=== PATIENT | female | born 1995 | race Caucasian/White ===

== ENCOUNTER → 2022-08-25 13:25 | Outpatient (BNVA) | payer OTHER, SELFPAY | PROVIDERS: PCP Nurse Practitioner Family; Visit Provider Nurse Practitioner Family ==

== ENCOUNTER 2022-10-04 16:15 | Outpatient (REF) | payer OTHER, SELFPAY ==
--- NOTE | ~2022-10-04 | MR_ITS ---
EXAMINATION: MR BRAIN WITHOUT AND WITH CONTRAST CLINICAL INFORMATION: Headache COMPARISON: None TECHNIQUE: Multiplanar multisequence MR imaging of the brain was obtained without and following the administration of 6 mL Gadavist intravenous contrast. FINDINGS: There is no acute infarct on diffusion-weighted imaging. There is no intracranial hemorrhage on iron-sensitive imaging. No extra-axial collection or mass effect/herniation. Normal parenchymal signal characteristics. No hydrocephalus. The ventricles are normal in morphology and size. No abnormal parenchymal or extra-axial enhancement. The major flow voids at the skull base are preserved. The midline structures are normal. The cerebellar tonsils are normally positioned. The craniocervical junction is normal. Marrow signal is within normal limits. The visualized soft tissues are without significant abnormality. No signal abnormality within the paranasal sinuses or within the mastoid air cells. MR/MR head/brain wo/w con IMPRESSION: Unremarkable contrast enhanced MRI of the brain.
== END 2022-10-04 16:16 | disposition home or self-care (01) ==
LOC: HO.MRI 16:15
PROVIDERS: PCP Nurse Practitioner Family; Visit Provider Nurse Practitioner Family
DX: R51.9 Headache, unspecified (principal); Z86.19 Personal history of other infectious and parasitic diseases
CPT/HCPCS: 70553; A9585

== ENCOUNTER 2022-11-12 07:52 | Outpatient (AMB) | payer OTHER, SELFPAY ==
[2022-11-12 07:58] VITALS: BP 126/86; PULSE 72; O2SAT 99; BMI 21.5
--- NOTE | 2022-11-12 07:58 | A.OFFVIS_ITS ---
Intake Vital Signs 11/12/22 07:58 Height 5 ft 7 in Weight 137 lb 8 oz BMI 21.5 BP 126/86 Blood Pressure Location Lt brachial Position Sitting Pulse 72 Pulse Source Pulse Oximeter Pulse Oximetry (%) 99 Oxygen Delivery Method Room Air Intake Visit Reasons: BOTOX-confirmed Intake Note: Pt presents in office for Botox Application Integration Architect Required: No Allergies amoxicillin Allergy (Unknown, Verified 11/12/22 08:00) Unknown Penicillins Allergy (Unknown, Verified 11/12/22 08:00) Unknown sulfamethoxazole [From Bactrim] Allergy (Unknown, Verified 11/12/22 08:00) Hives trimethoprim [From Bactrim] Allergy (Unknown, Verified 11/12/22 08:00) Hives Medication List - Last Reconciled 11/12/22 by Marisol Solares MD cetirizine (Zyrtec) 10 mg PO DAILY PRN cholecalciferol (vitamin D3) 125 mcg PO DAILY clonidine HCl 0.2 mg PO DAILY dexmethylphenidate 10 mg PO famotidine 40 mg PO BID PRN lisdexamfetamine (Vyvanse) 30 mg PO DAILY magnesium tabs PO DAILY naltrexone mg PO DAILY onabotulinumtoxinA (Botox) 200 units IM ONCE 12 weeks propranolol 10 mg PO DAILY riboflavin (vitamin B2) 400 mg (4 x 100 mg) PO DAILY 30 days spironolactone 100 mg PO QAM [spore basedv probiotic PO DAILY] sumatriptan succinate 50 - 100 mg orally at onset of headache, may repeat in 2 hrs PRN; max 2 tabs per day or 4 tabs/week (may take with Ibuprofen) 30 days tretinoin 0.05% 1 appl topical BEDTIME [Tumeric curcumin 2,000 mg PO DAILY] HPI HPI Comments History of Present Illness Details ? 27y/o female comes for treatment of migraines with botox. ??? Most frequent reported adverse reactions following injection of botox for chronic migraine include neck pain (9%), headache(5%), eyelid ptosis(4%), migraine(4%), muscular weakness(4%), musculuskeletal stiffness(4%), bronchitis(3%), injection site pain (3%), musculoskeletal pain(3%), myalgia(3%), facial paresis(2%), HTN(2%) and muscle spasms(2%) were discussed in detail. ??? Botulinum toxin typeA 200units Lot no [id number] expiration Apr 2025 was diluted with 4 cc of normal saline . ??? Muscles injected- ??? Frontalis 4 sites ??? Masseter- 8 sites zygomaticus - 4 sites ??? Mangle Roll Operator- 2 sites ??? Temporalis- 8 sites ? Trapezius- 6 sites- 10 units each ??? 5 units each ??? Total use- 190units ??? Discarded-10units [facility] Medical History IBS (irritable bowel syndrome) GERD (gastroesophageal reflux disease) Positive ZHEN (antinuclear antibody) ADHD (attention deficit hyperactivity disorder) Surgical History Hx of appendectomy Family History Father Hypertension Mother Hypertension Cornelius's thyroiditis Maternal Grandmother Migraines Social History Alcohol intake: current Alcohol intake frequency: a few times a month Patient Tobacco Use Status: Never used Tobacco Substance Use Type: Marijuana Physical Exam Vital Signs: Last Vital Signs Pulse 72 11/12/22 07:58 BP 126/86 11/12/22 07:58 Pulse Ox 99 11/12/22 07:58 Oxygen Delivery Method Room Air 11/12/22 07:58 BMI result Body Mass Index 21.5 Const Orientation/consciousness: patient oriented x3 HEENT Other: Mild diffuse palpable facial and scalp tenderness. Mild lina TMJ misalignment on open/close Head: Yes normocephalic Resp Effort & Inspection: normal respiratory effort and able to speak in complete sentences Back/Spine/Pelvis Other: Bilateral posterior cervical tightness and tenderness Cervical ROM: full Left Spurling: normal Right Spurling: normal. Neuro General: patient oriented x3 Cranial nerves: Yes CN's II-XII intact bilaterally Cognition (Neuro): normal cognition Gait exam (Neuro): Normal gait present Motor exam (neuro): 5/5 motor strength present throughout Deep tendon reflexes (DTR's): Right triceps reflex intensity grade: 2+, Left triceps reflex intensity grade: 2+, Rt Biceps (C5, C6): 2+, Left biceps reflex intensity grade: 2+, Right brachioradialis reflex intensity grade: 2+, Left brachioradialis reflex intensity grade: 2+, Right patellar reflex intensity grade: 2+ and Left patellar reflex intensity grade: 2+ Coordination: [id number] test normal, tandem gait normal and Romberg test negative Pupils: Normal pupillary reactivity/response: bilateral Psych Appearance: grossly normal Mental Status: mental status grossly normal Speech and movement: Normal speech and movement present Affect: normal affect Attitude: cooperative Thought process: Normal thought process present Office Procedures Botulinum toxin Injection 12216 - Migraine Procedure code (CPT) selection complete Office Meds onabotulinumtoxinA 200 unit solution for injection Performing Provider: Marisol Solares MD Performing Location: [facility] [place] [facility] Administered by: Marisol Solares MD on 11/12/22 09:00 Dose Route Admin Location Dispensed Lot Number Expiration Date [facility] Workforce Development Program Director 190 unit subcut 200 units [id number] 04/07/25 9756-0029-38 ALLERGAN/BOTOX Comments: see HPI Assessment & Plan Assessment & Plan (1) TMJ (temporomandibular joint disorder): Code(s): M26.609 - Unspecified temporomandibular joint disorder, unspecified side (2) Chronic migraine without aura: Code(s): G43.709 - Chronic migraine without aura, not intractable, without status migrainosus Plan Patient tolerated the procedure well she will call with any side effects Orders: Orders AMB Botulinum toxin Injection - Patient Supplied Today G43.709 - Chronic migraine without aura, not intractable, without status migrainosus, M26.609 - Unspecified temporomandibular joint disorder, unspecified side Medications: Changed From propranolol Take in am and afternoon. 10 mg PO BID 30 days 60 tabs 3RF To propranolol 10 mg PO DAILY Coding Level of Care Code Est Pt Level 1 (65682) Diagnoses TMJ (temporomandibular joint disorder) M26.609 Chronic migraine without aura G43.709 CPT Codes Botox Injection - Botox 3: 25419 - Migraine ([id number])
== END 2022-11-12 08:25 | disposition home or self-care (01) ==
PROVIDERS: PCP Nurse Practitioner Family; Visit Provider Psychiatry & Neurology Neurology
DX: G43.709 Chronic migraine without aura, not intractable, without status migrainosus (principal)
CPT/HCPCS: 64615

== ENCOUNTER → 2022-11-12 07:52 | Outpatient (BNVA) | payer OTHER, SELFPAY | PROVIDERS: PCP Nurse Practitioner Family; Visit Provider Psychiatry & Neurology Neurology | DX: G43.709 Chronic migraine without aura, not intractable, without status migrainosus (principal); M26.609 Unspecified temporomandibular joint disorder, unspecified side | CPT/HCPCS: 64615; 99211; J0585 ==

== ENCOUNTER 2022-12-08 08:00 | Outpatient (AMB) | payer OTHER, SELFPAY ==
--- NOTE | 2022-12-08 08:01 | MHC.OFFVIS ---
Intake Vital Signs 12/08/22 08:05 Height 5 ft 7 in Weight 134 lb 8 oz BMI 21.1 BP 100/74 Blood Pressure Location Rt brachial Position Sitting Pulse 71 Pulse Source Pulse Oximeter Pulse Oximetry (%) 97 Oxygen Delivery Method Room Air Intake Visit Reasons: 3m follow up Persistent headaches-Confirmed Intake Note: Patient presents for 3 month follow up. patient states I want to say they got better for a little bit but they're flaring up saray been taking propranolol 2 times a day it was helping it could also be stress. . Allergies amoxicillin Allergy (Unknown, Verified 12/08/22 08:07) Unknown Penicillins Allergy (Unknown, Verified 12/08/22 08:07) Unknown sulfamethoxazole [From Bactrim] Allergy (Unknown, Verified 12/08/22 08:07) Hives trimethoprim [From Bactrim] Allergy (Unknown, Verified 12/08/22 08:07) Hives Medication List - Last Reconciled 12/08/22 by SOFIA Sandhu cetirizine (Zyrtec) 10 mg PO DAILY PRN cholecalciferol (vitamin D3) 125 mcg PO DAILY clonidine HCl 0.2 mg PO DAILY dexmethylphenidate 10 mg PO famotidine 40 mg PO BID PRN lisdexamfetamine (Vyvanse) 30 mg PO DAILY magnesium tabs PO DAILY naltrexone mg PO DAILY onabotulinumtoxinA (Botox) 200 units IM ONCE 12 weeks propranolol 10 mg PO DAILY riboflavin (vitamin B2) 400 mg (4 x 100 mg) PO DAILY 30 days spironolactone 100 mg PO QAM [spore basedv probiotic PO DAILY] tretinoin 0.05% 1 appl topical BEDTIME [Tumeric curcumin 2,000 mg PO DAILY] HPI HPI Comments History of Present Illness Details 27-yr-old female presents for f/u visit. Pt denies any significant interval medical changes. Her migraines were better for sometime, but does now seem to a bit more increased. 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 During the work week, she has some sort of headache every day. Sometimes can be mild and responds to OTC Tylenol/NSAID. She does find the Propanolol is helpful, but can feel like it makes her a bit tired and cognitively slower. She had her 1st Botox inj approx [address] hall. Tolerated well. Has not noticed a significant decrease in her cervical tension yet- but understands this can take several weeks and a fe treatment sessions to see full effect. She has not taken Sumatriptan yet- is anxious about the risk for s/e- especially the risk for paresthesias. [facility] Medical History IBS (irritable bowel syndrome) GERD (gastroesophageal reflux disease) Positive ZHEN (antinuclear antibody) ADHD (attention deficit hyperactivity disorder) Surgical History Hx of appendectomy Family History Father Hypertension Mother Hypertension Cornelius's thyroiditis Maternal Grandmother Migraines Social History Alcohol intake: current Alcohol intake frequency: a few times a month Patient Tobacco Use Status: Never used Tobacco Substance Use Type: Marijuana Review of Systems Const All systems reviewed & are unremarkable except as noted in HPI and below Physical Exam Vital Signs: Last Vital Signs Pulse 71 12/08/22 08:05 BP 100/74 12/08/22 08:05 Pulse Ox 97 12/08/22 08:05 Oxygen Delivery Method Room Air 12/08/22 08:05 BMI result Body Mass Index 21.1 Const General: cooperative and no acute distress Orientation/consciousness: patient oriented x3 HEENT Head: Yes normocephalic Resp Effort & Inspection: normal respiratory effort and able to speak in complete sentences Neuro Other: Posterior cervical tightness. General: patient oriented x3, gait normal and CN's II-XI intact bilaterally Cognition (Neuro): normal cognition Motor exam (neuro): 5/5 motor strength present throughout Psych Appearance: grossly normal Mental Status: mental status grossly normal Speech and movement: Normal speech and movement present Affect: normal affect Attitude: cooperative Thought process: Normal thought process present Thought content: Normal thought content present Insight: Good insight present (Psych) Judgement: Good judgement present (Psych) Assessment & Plan Assessment & Plan (1) Chronic migraine without aura: Code(s): G43.709 - Chronic migraine without aura, not intractable, without status migrainosus (2) TMJ (temporomandibular joint disorder): Code(s): M26.609 - Unspecified temporomandibular joint disorder, unspecified side Plan Reviewed brain MRI w/wo- normal. ? For overall headache management: Continue to optimize good self-care, including but not limited to maintaining a healthy diet, adequate fluid intake, adequate sleep, and engaging in regular physical activity. Track headaches. For acute headache treatment: May use OTC Tylenol, Ibuprofen, or Naproxen prn. Hold Sumatriptan 100mg tab- reviewed s/e profile, however pt is wary to try at this time. Previous acute migraine medication trials: None Acute migraine medication contraindications: None at this time ? For chronic migraine prevention medication: Continue Riboflavin 400mg qam Continue OTC Magnesium 400-500mg qhs Adjust Propranolol from 10mg IR bid 60mg ER qhs. Continue Botox inj q 3 months- may helpc ervical tightness and TMJ s/s as well. Previous migraine prevention medication trials: Nortriptyline not tolerated. Botox for lina TMJ- was helpful. Migraine prevention medication contraindications: None at this time. ? Information also given on non-pharmacological interventions, such as Nerivio neuromodulation devices. ? 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 Medications: New propranolol ER 60 mg PO BEDTIME 30 days 30 caps 3RF Coding Level of Care Code Est Pt Level 4 (62291) Diagnoses Chronic migraine without aura G43.709 TMJ (temporomandibular joint disorder) M26.609
[2022-12-08 08:05] VITALS: BP 100/74; PULSE 71; O2SAT 97; BMI 21.1
== END 2022-12-08 08:48 | disposition home or self-care (01) ==
PROVIDERS: PCP Nurse Practitioner Family; Visit Provider Nurse Practitioner Family
DX: G43.709 Chronic migraine without aura, not intractable, without status migrainosus (principal); M26.609 Unspecified temporomandibular joint disorder, unspecified side
CPT/HCPCS: 99214

== ENCOUNTER → 2022-12-08 08:00 | Outpatient (BNVA) | payer OTHER, SELFPAY | PROVIDERS: PCP Nurse Practitioner Family; Visit Provider Nurse Practitioner Family ==

== ENCOUNTER 2023-02-22 08:13 | Outpatient (AMB) | payer OTHER, SELFPAY ==
[2023-02-22 08:20] VITALS: BP 118/70; PULSE 71; RESP 16; O2SAT 98; BMI 21.2
--- NOTE | 2023-02-22 08:20 | MHC.OFFVIS ---
Intake Vital Signs 02/22/23 08:20 Height 5 ft 7 in Weight 135 lb 2 oz BMI 21.2 BP 118/70 Blood Pressure Location Rt brachial Position Sitting Respiration 16 Pulse 71 Pulse Source Pulse Oximeter Pulse Oximetry (%) 98 Oxygen Delivery Method Room Air Intake Visit Reasons: Botox - Confirmed Intake Note: Pt presents to the office for her Botox injections. Security And Compliance Analyst Required: No Allergies amoxicillin Allergy (Unknown, Verified 02/22/23 08:20) Unknown Penicillins Allergy (Unknown, Verified 02/22/23 08:20) Unknown sulfamethoxazole [From Bactrim] Allergy (Unknown, Verified 02/22/23 08:20) Hives trimethoprim [From Bactrim] Allergy (Unknown, Verified 02/22/23 08:20) Hives Medication List - Last Reconciled 02/22/23 by Marisol Solares MD cetirizine (Zyrtec) 10 mg PO DAILY PRN cholecalciferol (vitamin D3) 125 mcg PO DAILY clonidine HCl 0.2 mg PO DAILY dexmethylphenidate 10 mg PO famotidine 40 mg PO BID PRN lisdexamfetamine (Vyvanse) 30 mg PO DAILY magnesium tabs PO DAILY naltrexone mg PO DAILY onabotulinumtoxinA (Botox) 200 units IM ONCE 12 weeks propranolol 10 mg PO BID 30 days riboflavin (vitamin B2) 400 mg (4 x 100 mg) PO DAILY 30 days spironolactone 100 mg PO QAM [spore basedv probiotic PO DAILY] tretinoin 0.05% 1 appl topical BEDTIME [Tumeric curcumin 2,000 mg PO DAILY] HPI HPI Comments History of Present Illness Details ? 27y/o female comes for treatment of migraines with botox. How many migraine days prior to botox- >20 migraine days /month How long do the migraines last- 12-24 hrs Intensity of aimhnabp-1-68/10 ER visits related to migraine- none Effectiveness of botox from last two treatment(s)- this is her second treatment How many migraine days since receiving treatment- 15 migraine days Change? in intensity of migraine?- decreased Change in frequency of migraine?- decreased Change in use of acute medication for migraine?-decreased Change in quality of life?- better ER visits related to migraine?- none Have at least three months elapsed since last treatment (Last botox date - frequency of injections)- 11/2022 ??? Most frequent reported adverse reactions following injection of botox for chronic migraine include neck pain (9%), headache(5%), eyelid ptosis(4%), migraine(4%), muscular weakness(4%), musculuskeletal stiffness(4%), bronchitis(3%), injection site pain (3%), musculoskeletal pain(3%), myalgia(3%), facial paresis(2%), HTN(2%) and muscle spasms(2%) were discussed in detail. ??? Botulinum toxin typeA 200units Lot no C [id number] expiration May 2025 was diluted with 4 cc of normal saline . ??? Muscles injected- ??? Frontalis 4 sites ??? Masseter- 8 sites Splenius capitus- 4 sites ??? Loan Approver- 2 sites ??? Temporalis- 8 sites ? Trapezius- 6 sites- 10 units each ??? 5 units each ??? Total use- 190units ??? Discarded-10units [facility] Medical History IBS (irritable bowel syndrome) GERD (gastroesophageal reflux disease) Positive ZHEN (antinuclear antibody) ADHD (attention deficit hyperactivity disorder) Surgical History Hx of appendectomy Family History Father Hypertension Mother Hypertension Cornelius's thyroiditis Maternal Grandmother Migraines Social History Alcohol intake: current Alcohol intake frequency: a few times a month Patient Tobacco Use Status: Never used Tobacco Substance Use Type: Marijuana Physical Exam Vital Signs: Last Vital Signs Pulse 71 02/22/23 08:20 Resp 16 02/22/23 08:20 BP 118/70 02/22/23 08:20 Pulse Ox 98 02/22/23 08:20 Oxygen Delivery Method Room Air 02/22/23 08:20 BMI result Body Mass Index 21.2 Const General: cooperative and no acute distress Orientation/consciousness: patient oriented x3 HEENT Head: Yes normocephalic Resp Effort & Inspection: normal respiratory effort and able to speak in complete sentences Neuro Other: Posterior cervical tightness. General: patient oriented x3, gait normal and CN's II-XI intact bilaterally Cognition (Neuro): normal cognition Motor exam (neuro): 5/5 motor strength present throughout Psych Appearance: grossly normal Mental Status: mental status grossly normal Speech and movement: Normal speech and movement present Affect: normal affect Attitude: cooperative Thought process: Normal thought process present Thought content: Normal thought content present Insight: Good insight present (Psych) Judgement: Good judgement present (Psych) Office Procedures Botulinum toxin Injection 23781 - Migraine Procedure code (CPT) selection complete Office Meds onabotulinumtoxinA 200 unit solution for injection Performing Provider: Marisol Solares MD Performing Location: [facility] Administered by: Marisol Solares MD on 02/22/23 09:44 Dose Route Admin Location Dispensed Lot Number Expiration Date [facility] Accountant Helper 190 unit subcut 200 units [id number] 05/05/25 0218-9912-20 ALLERGAN/BOTOX Comments: see hpi Assessment & Plan Assessment & Plan (1) TMJ (temporomandibular joint disorder): Code(s): M26.609 - Unspecified temporomandibular joint disorder, unspecified side (2) Chronic migraine without aura: Code(s): G43.709 - Chronic migraine without aura, not intractable, without status migrainosus Plan Patient tolerated the procedure well she will call with any side effects Orders: Orders AMB Botulinum toxin Injection - Patient Supplied Today G43.709 - Chronic migraine without aura, not intractable, without status migrainosus Coding Level of Care Code Est Pt Level 1 (06276) Diagnoses TMJ (temporomandibular joint disorder) M26.609 Chronic migraine without aura G43.709 CPT Codes Botox Injection - Botox 3: 55111 - Migraine ([id number])
== END 2023-02-22 08:57 | disposition home or self-care (01) ==
PROVIDERS: PCP Nurse Practitioner Family; Visit Provider Psychiatry & Neurology Neurology
DX: G43.709 Chronic migraine without aura, not intractable, without status migrainosus (principal)
CPT/HCPCS: 64615

== ENCOUNTER → 2023-02-22 08:13 | Outpatient (BNVA) | payer SELFPAY | PROVIDERS: PCP Nurse Practitioner Family; Visit Provider Psychiatry & Neurology Neurology | DX: G43.709 Chronic migraine without aura, not intractable, without status migrainosus (principal); M26.609 Unspecified temporomandibular joint disorder, unspecified side | CPT/HCPCS: 64615; 99211; J0585 ==

== ENCOUNTER 2023-04-04 08:00 | Outpatient (AMB) | payer OTHER, SELFPAY ==
--- NOTE | 2023-04-04 08:08 | MHC.OFFVIS ---
Intake Vital Signs 04/04/23 08:09 Height 5 ft 7 in Weight 135 lb BMI 21.1 Intake Visit Reasons: 3 mnts f/u for headaches-Confirmed Intake Note: Patient presents for 3 month follow up headaches. it's so so depending on the week Allergies amoxicillin Allergy (Unknown, Verified 04/04/23 08:12) Unknown Penicillins Allergy (Unknown, Verified 04/04/23 08:12) Unknown sulfamethoxazole [From Bactrim] Allergy (Unknown, Verified 04/04/23 08:12) Hives trimethoprim [From Bactrim] Allergy (Unknown, Verified 04/04/23 08:12) Hives Medication List - Last Reconciled 04/04/23 by SOFIA Sandhu cetirizine (Zyrtec) 10 mg PO DAILY PRN cholecalciferol (vitamin D3) 125 mcg PO DAILY clonidine HCl 0.2 mg PO DAILY dexmethylphenidate 10 mg PO famotidine 40 mg PO BID PRN lisdexamfetamine (Vyvanse) 30 mg PO DAILY magnesium tabs PO DAILY methylphenidate HCl ER (Concerta) 18 mg PO DAILY naltrexone mg PO DAILY onabotulinumtoxinA (Botox) 200 units IM ONCE 12 weeks propranolol 10 mg PO BID 30 days riboflavin (vitamin B2) 400 mg (4 x 100 mg) PO DAILY 30 days spironolactone 100 mg PO QAM [spore basedv probiotic PO DAILY] tretinoin 0.05% 1 appl topical BEDTIME [Tumeric curcumin 2,000 mg PO DAILY] HPI HPI Comments History of Present Illness Details 28-yr-old female presents for f/u visit of migraine. Pt denies any significant interval medical changes. However, she does have an upcoming infectious disease consult at [facility]. Also notes that her hands and feet her old school. Incident the wound may occasionally become white, but she has never noticed blue color change. States she has chronic elevated ZHEN, but Rheumatology did not feel this was significant. Her generic Vyvanse 50mg was switched to Concerta 34 mg q.a.m., patient is not sure that this is as effective as Vyvanse. Her PCP is managing this. Patient reports her migraine burden has decreased since starting Botox. She no longer has a daily headache, and the headaches are less severe and less debilitating than before. Using Propranolol 10mg qhs. Uses Advil liquigel 600mg prn. May use Propranolol 10mg prn- which helps some. Has not tried Sumatriptan- anxious about risk for side effects. Baseline migraine without aura headache characteristics: Severe, Often throbbing Holocranial, lina retroorbital, temporal, moves down into her neck and shoulders a/w Photophobia, osmophobia, at times allodynia along frontal hairline, nausea- but not sure if r/t headache as often nauseous, brain fog, irritability. Current number of typical migraine days per month: Most days, no longer daily. Average painfulness of these migraines: Not as severe. Current number of non-migraine headache days per month: n/a Average painfulness of these headaches: n/a Previous number of migraine days per month prior to starting current preventive tx: daily PFS Medical History (Updated 04/04/23 @ 12:55 by SOFIA Sandhu) IBS (irritable bowel syndrome) GERD (gastroesophageal reflux disease) Positive ZHEN (antinuclear antibody) ADHD (attention deficit hyperactivity disorder) Surgical History Hx of appendectomy Family History Father Hypertension Mother Hypertension Cornelius's thyroiditis Maternal Grandmother Migraines Social History Alcohol intake: current Alcohol intake frequency: a few times a month Patient Tobacco Use Status: Never used Tobacco Substance Use Type: Marijuana Physical Exam Vital Signs: BMI result Body Mass Index 21.1 Const General: cooperative and no acute distress Orientation/consciousness: patient oriented x3 Resp Effort & Inspection: normal respiratory effort and able to speak in complete sentences Neuro General: patient oriented x3 Cranial nerves: Yes CN's II-XII intact bilaterally Cognition (Neuro): normal cognition Psych Appearance: grossly normal Mental Status: mental status grossly normal Speech and movement: Normal speech and movement present Affect: normal affect Attitude: cooperative Assessment & Plan Assessment & Plan (1) Chronic migraine without aura: Code(s): G43.709 - Chronic migraine without aura, not intractable, without status migrainosus (2) Cold hands and feet: Code(s): R20.9 - Unspecified disturbances of skin sensation (3) Positive ZHEN (antinuclear antibody): Code(s): R76.8 - Other specified abnormal immunological findings in serum Plan For coldness in bilateral hands and feet: Will request notes from the arthritis treatment center. ? For overall headache management: Continue to optimize good self-care, including but not limited to maintaining a healthy diet, adequate fluid intake, adequate sleep, and engaging in regular physical activity. Track headaches. ? For acute headache treatment: May use OTC Tylenol, Ibuprofen, or Naproxen prn. Trial Sumatriptan 100mg tab. May continue propranolol 10 mg p.r.n. Previous acute migraine medication trials: None Acute migraine medication contraindications: None at this time Future consideration: gepant. ? For chronic migraine prevention medication: Continue Riboflavin 400mg qam Continue OTC Magnesium 400-500mg qhs Continue Propranolol 10mg IR q.h.s. Continue Botox inj q 3 months- may help cervical tightness and TMJ s/s as well. Previous migraine prevention medication trials: Nortriptyline not tolerated. Botox for lina TMJ- was helpful. Propranolol 60 mg ER-not tolerated.. Migraine prevention medication contraindications: None at this time. ? Information also given on non-pharmacological interventions, such as Nerivio neuromodulation devices. ? Pt to follow-up for Botox in Dec as scheduled and in 4-6 months w/ [employer] or sooner prn. Coding Level of Care Code Est Pt Level 4 (10652) Diagnoses Chronic migraine without aura G43.709 Cold hands and feet R20.9 Positive ZHEN (antinuclear antibody) R76.8
[2023-04-04 08:09] VITALS: BMI 21.1
== END 2023-04-04 08:58 | disposition home or self-care (01) ==
PROVIDERS: PCP Nurse Practitioner Family; Visit Provider Nurse Practitioner Family
DX: G43.709 Chronic migraine without aura, not intractable, without status migrainosus (principal); R20.9 Unspecified disturbances of skin sensation; R76.8 Other specified abnormal immunological findings in serum
CPT/HCPCS: 99214

== ENCOUNTER → 2023-04-04 08:00 | Outpatient (BNVA) | payer OTHER, SELFPAY | PROVIDERS: PCP Nurse Practitioner Family; Visit Provider Nurse Practitioner Family ==

== ENCOUNTER 2023-06-03 11:00 | Outpatient (AMB) | payer OTHER, SELFPAY ==
--- NOTE | 2023-06-03 11:01 | A.OFFVIS_ITS ---
Intake Vital Signs 06/03/23 11:02 Height 5 ft 7 in Weight 132 lb BMI 20.7 BP 122/70 Blood Pressure Location Rt brachial Position Sitting Respiration 16 Pulse 76 Pulse Source Palpation Intake Visit Reasons: Botox-LVM Intake Note: Pt presents to the office for Botox injections. Fitness And Wellness Director Required: No Allergies amoxicillin Allergy (Unknown, Verified 06/03/23 11:01) Unknown Penicillins Allergy (Unknown, Verified 06/03/23 11:01) Unknown sulfamethoxazole [From Bactrim] Allergy (Unknown, Verified 06/03/23 11:01) Hives trimethoprim [From Bactrim] Allergy (Unknown, Verified 06/03/23 11:01) Hives Medication List - Last Reconciled 06/03/23 by Marisol Solares MD cetirizine (Zyrtec) 10 mg PO DAILY PRN cholecalciferol (vitamin D3) 125 mcg PO DAILY clonidine HCl 0.2 mg PO DAILY dexmethylphenidate 10 mg PO famotidine 40 mg PO BID PRN lisdexamfetamine (Vyvanse) 30 mg PO DAILY magnesium tabs PO DAILY methylphenidate HCl ER (Concerta) 18 mg PO DAILY naltrexone mg PO DAILY onabotulinumtoxinA (Botox) 200 units IM ONCE 12 weeks propranolol 10 mg PO BID 30 days riboflavin (vitamin B2) 400 mg (4 x 100 mg) PO DAILY 30 days spironolactone 100 mg PO QAM [spore basedv probiotic PO DAILY] tretinoin 0.05% 1 appl topical BEDTIME [Tumeric curcumin 2,000 mg PO DAILY] HPI HPI Comments History of Present Illness Details ? 28y/o female comes for treatment of migraines with botox. How many migraine days prior to botox- >20 migraine days /month How long do the migraines last- 12-24 hrs Intensity of vsjdvuwp-3-52/10 ER visits related to migraine- none Effectiveness of botox from last two treatment(s)- this is her second treatment How many migraine days since receiving treatment- 15 migraine days Change? in intensity of migraine?- decreased Change in frequency of migraine?- decreased Change in use of acute medication for migraine?-decreased Change in quality of life?- better ER visits related to migraine?- none Have at least three months elapsed since last treatment (Last botox date - frequency of injections)- 11/2022 ??? Most frequent reported adverse reactions following injection of botox for chronic migraine include neck pain (9%), headache(5%), eyelid ptosis(4%), migraine(4%), muscular weakness(4%), musculuskeletal stiffness(4%), bronchitis(3%), injection site pain (3%), musculoskeletal pain(3%), myalgia(3%), facial paresis(2%), HTN(2%) and muscle spasms(2%) were discussed in detail. ??? Botulinum toxin typeA 200units Lot no C [id number] expiration August 2025 was diluted with 4 cc of normal saline . ??? Muscles injected- ??? Frontalis 4 sites ??? Masseter- 8 sites Splenius capitus- 4 sites ??? Cigarette And Filter Chief Inspector- 2 sites ??? Temporalis- 8 sites ? Trapezius- 6 sites- 10 units each ??? 5 units each ??? Total use- 190units ??? Discarded-10units [facility] Medical History IBS (irritable bowel syndrome) GERD (gastroesophageal reflux disease) Positive ZHEN (antinuclear antibody) ADHD (attention deficit hyperactivity disorder) Surgical History Hx of appendectomy Family History Father Hypertension Mother Hypertension Cornelius's thyroiditis Maternal Grandmother Migraines Social History Alcohol intake: current Alcohol intake frequency: a few times a month Patient Tobacco Use Status: Never used Tobacco Substance Use Type: Marijuana Physical Exam Vital Signs: Last Vital Signs Pulse 76 06/03/23 11:02 Resp 16 06/03/23 11:02 BP 122/70 06/03/23 11:02 BMI result Body Mass Index 20.7 Const General: cooperative and no acute distress Orientation/consciousness: patient oriented x3 HEENT Head: Yes normocephalic Resp Effort & Inspection: normal respiratory effort and able to speak in complete sentences Neuro Other: Posterior cervical tightness. General: patient oriented x3, gait normal and CN's II-XI intact bilaterally Cognition (Neuro): normal cognition Motor exam (neuro): 5/5 motor strength present throughout Psych Appearance: grossly normal Mental Status: mental status grossly normal Speech and movement: Normal speech and movement present Affect: normal affect Attitude: cooperative Thought process: Normal thought process present Thought content: Normal thought content present Insight: Good insight present (Psych) Judgement: Good judgement present (Psych) Office Procedures Botulinum toxin Injection 34633 - Migraine Procedure code (CPT) selection complete Office Meds onabotulinumtoxinA 200 unit solution for injection Performing Provider: Marisol Solares MD Performing Location[place] [facility] [place] [facility] Administered by: Marisol Solares MD on 06/03/23 12:10 Dose Route Admin Location Dispensed Lot Number Expiration Date [facility] [employer] 190 unit IM 200 units [id number] 08/05/25 6724-5385-94 ALLERGAN/BOTOX Comments: see HPI Assessment & Plan Assessment & Plan (1) TMJ (temporomandibular joint disorder): Code(s): M26.609 - Unspecified temporomandibular joint disorder, unspecified side (2) Chronic migraine without aura: Code(s): G43.709 - Chronic migraine without aura, not intractable, without status migrainosus Plan Patient tolerated the procedure well she will call with any side effects Orders: Orders AMB Botulinum toxin Injection - Patient Supplied Today G43.709 - Chronic migrai ne without aura, not intractable, without status migrainosus, M26.609 - Unspecified temporomandibular joint disorder, unspecified side Coding Level of Care Code Est Pt Level 1 (51857) Diagnoses TMJ (temporomandibular joint disorder) M26.609 Chronic migraine without aura G43.709 CPT Codes Botox Injection - Botox 3: 42470 - Migraine ([id number])
[2023-06-03 11:02] VITALS: BP 122/70; PULSE 76; RESP 16; BMI 20.7
== END 2023-06-03 11:49 | disposition home or self-care (01) ==
PROVIDERS: PCP Nurse Practitioner Family; Visit Provider Psychiatry & Neurology Neurology
DX: G43.709 Chronic migraine without aura, not intractable, without status migrainosus (principal)
CPT/HCPCS: 64615

== ENCOUNTER → 2023-06-03 11:00 | Outpatient (BNVA) | payer OTHER, SELFPAY | PROVIDERS: PCP Nurse Practitioner Family; Visit Provider Psychiatry & Neurology Neurology | DX: G43.709 Chronic migraine without aura, not intractable, without status migrainosus (principal); M26.609 Unspecified temporomandibular joint disorder, unspecified side | CPT/HCPCS: 64615; 99211; J0585 ==

== ENCOUNTER 2023-08-02 07:57 | Outpatient (AMB) | payer OTHER, SELFPAY ==
--- NOTE | 2023-08-02 08:12 | A.OFFVIS_ITS ---
Vital Signs 08/02/23 08:13 Height 5 ft 7 in Weight 140 lb BMI 21.9 BP 114/74 Blood Pressure Location Rt brachial Position Sitting Pulse 66 Pulse Source Pulse Oximeter Intake Visit Reasons: 4 mo f/u-CONF Intake Note: Patient presents for 4 month follow up. my headaches are on and off but generally has been the same. Allergies amoxicillin Allergy (Unknown, Verified 08/02/23 08:14) Unknown Penicillins Allergy (Unknown, Verified 08/02/23 08:14) Unknown sulfamethoxazole [From Bactrim] Allergy (Unknown, Verified 08/02/23 08:14) Hives trimethoprim [From Bactrim] Allergy (Unknown, Verified 08/02/23 08:14) Hives Medication List - Last Reconciled 08/02/23 by SOFIA Sandhu cetirizine (Zyrtec) 10 mg PO DAILY PRN cholecalciferol (vitamin D3) 125 mcg PO DAILY clonidine HCl 0.2 mg PO DAILY dexmethylphenidate 10 mg PO famotidine 40 mg PO BID PRN lisdexamfetamine (Vyvanse) 30 mg PO DAILY magnesium tabs PO DAILY methylphenidate HCl ER (Concerta) 18 mg PO DAILY naltrexone mg PO DAILY onabotulinumtoxinA (Botox) 200 units IM ONCE 12 weeks propranolol 10 mg PO BID 30 days riboflavin (vitamin B2) 400 mg (4 x 100 mg) PO DAILY 30 days spironolactone 100 mg PO QAM [spore basedv probiotic PO DAILY] tretinoin 0.05% 1 appl topical BEDTIME [Tumeric curcumin 2,000 mg PO DAILY] verapamil ER 100 mg PO BEDTIME 30 days HPI Comments Details: 28-yr-old female presents for f/u visit. Pt denies any significant interval medical changes. Pt had ID consult at [facility]- was advised to not re-treat the [place] Spotted Fever as they did not think the positive ABs were indicating active infection. She has continued to have joint pain, hypermobility, fatigue. Has had hypermobile joints since childhood- prone to joint issues/injuries. She was referred to [facility] for EDS eval- had a connective tissue panel- so far pt states so far results were normal. Had recent normal echocardiogram as part of EDs work-up. She has chronic positive ZHEN. Pt reports her migraine attacks are stable. She is still prone to her hands and feet becoming cold- better more recently- her new office is warmer than her previous offices have been. Uses propranolol 10mg qhs- may use an extra tab prn for acute attack, may help some w/ the anxiety r/t the migraine. May be a bit lightheaded at times. Does not tolerate liquid IV well, but does take water w/ salt and electrolytes- that she makes. This is helpful when she takes it. The Botox helps decrease the severity of the migraine and now the frequency as w ell. Using low dose Naltrexone- for joint pain. She recently stopped the Naltrexone- did not notice any effect on her migraine, but resumed on a different dosing regimen- and feels some improvement She continues to have a few migraine days per week. [facility] Medical History IBS (irritable bowel syndrome) GERD (gastroesophageal reflux disease) Positive ZHEN (antinuclear antibody) ADHD (attention deficit hyperactivity disorder) Surgical History Hx of appendectomy Family History Father Hypertension Mother Hypertension Cornelius's thyroiditis Maternal Grandmother Migraines Social History Alcohol intake: current Alcohol intake frequency: a few times a month Patient Tobacco Use Status: Never used Tobacco Substance Use Type: Marijuana Physical Exam Vital Signs: Last Vital Signs Pulse 66 08/02/23 08:13 BP 114/74 08/02/23 08:13 BMI result Body Mass Index 21.9 Const General: cooperative and no acute distress Orientation/consciousness: patient oriented x3 Resp Effort & Inspection: normal respiratory effort and able to speak in complete se ntences Neuro General: patient oriented x3 Cranial nerves: Yes CN's II-XII intact bilaterally Cognition (Neuro): normal cognition Psych Appearance: grossly normal Mental Status: mental status grossly normal Speech and movement: Normal speech and movement present Affect: normal affect Attitude: cooperative Assessment & Plan Assessment & Plan (1) Chronic migraine without aura: Code(s): G43.709 - Chronic migraine without aura, not intractable, without status migr ainosus Category: Medical (2) Cold hands and feet: Code(s): R20.9 - Unspecified disturbances of skin sensation Category: Medical Plan For coldness in bilateral hands and feet: Request notes from the arthritis treatment center- have not receievd. Pt will provide notes. ? For overall headache management: Continue to optimize good self-care, including but not limited to maintaining a healthy diet, adequate fluid intake, adequate sleep, and engaging in regular physical activity. Track headaches. ? For acute headache treatment: May use OTC Tylenol, Ibuprofen, or Naproxen prn. Trial Sumatriptan 100mg tab. Propranolol 10mg IR qd prn. May continue propranolol 10 mg p.r.n. Previous acute migraine medication trials: None Acute migraine medication contraindications: None at this time Future consideration: gepant. ? For chronic migraine prevention medication: Continue Riboflavin 400mg qam Continue OTC Magnesium 400-500mg qhs Continue Propranolol 10mg IR q.h.s. Try adding Veraapiml ER 100mg qhs- in hopes this lessens headaches and Raynaud s/s. Will check baseline EKG. Monitor for lightheadedness. If effective, consider weaning off scheduled Propranolol. Continue Botox inj q 3 months- as pt is having good clinical effect and helping cervical tightness and TMJ s/s as well. Previous migraine prevention medication trials: Nortriptyline not tolerated. Botox for lnia TMJ- was helpful. Propranolol 60 mg ER- not tolerated- caused excessive sleepiness. Migraine prevention medication contraindications: None at this time. ? ? Pt to follow-up for Botox as scheduled and in 4-6 months w/ [employer] or sooner prn. Orders: Orders ECG 12 lead EKG Today R00.2 - Palpitations Medications: New verapamil ER 100 mg PO BEDTIME 30 days 30 caps 6RF Coding Level of Care Code Est Pt Level 4 (93957) Diagnoses Chronic migraine without aura G43.709 Cold hands and feet R20.9
[2023-08-02 08:13] VITALS: BP 114/74; PULSE 66; BMI 21.9
== END 2023-08-02 09:05 | disposition home or self-care (01) ==
PROVIDERS: PCP Nurse Practitioner Family; Visit Provider Nurse Practitioner Family
DX: G43.709 Chronic migraine without aura, not intractable, without status migrainosus (principal); R20.9 Unspecified disturbances of skin sensation
CPT/HCPCS: 99214

== ENCOUNTER → 2023-08-02 07:57 | Outpatient (BNVA) | payer OTHER, SELFPAY | PROVIDERS: PCP Nurse Practitioner Family; Visit Provider Nurse Practitioner Family ==

== ENCOUNTER 2023-09-13 08:03 | Outpatient (AMB) | payer OTHER, SELFPAY ==
[2023-09-13 08:08] VITALS: BP 122/62; PULSE 72; RESP 16; O2SAT 99; BMI 21.9
--- NOTE | 2023-09-13 08:08 | A.OFFVIS_ITS ---
Vital Signs 09/13/23 08:08 Height 5 ft 7 in Weight 140 lb BMI 21.9 BP 122/62 Blood Pressure Location Rt brachial Position Sitting Respiration 16 Pulse 72 Pulse Source Pulse Oximeter Pulse Oximetry (%) 99 Oxygen Delivery Method Room Air Intake Visit Reasons: Botox - Confirmed Intake Note: Pt presents to the office for Botox injections for migraines. 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 Required: No Allergies amoxicillin Allergy (Unknown, Verified 09/13/23 08:08) Unknown Penicillins Allergy (Unknown, Verified 09/13/23 08:08) Unknown sulfamethoxazole [From Bactrim] Allergy (Unknown, Verified 09/13/23 08:08) Hives trimethoprim [From Bactrim] Allergy (Unknown, Verified 09/13/23 08:08) Hives Medication List - Last Reconciled 09/13/23 by Marisol Solares MD cetirizine (Zyrtec) 10 mg PO DAILY PRN cholecalciferol (vitamin D3) 125 mcg PO DAILY clonidine HCl 0.2 mg PO DAILY dexmethylphenidate 10 mg PO famotidine 40 mg PO BID PRN lisdexamfetamine (Vyvanse) 30 mg PO DAILY magnesium tabs PO DAILY methylphenidate HCl ER (Concerta) 18 mg PO DAILY naltrexone mg PO DAILY onabotulinumtoxinA (Botox) 200 units IM ONCE 12 weeks propranolol 10 mg PO BID 30 days riboflavin (vitamin B2) 400 mg (4 x 100 mg) PO DAILY 30 days spironolactone 100 mg PO QAM [spore basedv probiotic PO DAILY] tretinoin 0.05% 1 appl topical BEDTIME [Tumeric curcumin 2,000 mg PO DAILY] verapamil ER 100 mg PO BEDTIME 30 days HPI Comments Details: ? 28y/o female comes for treatment of migraines with botox. How many migraine days prior to botox- >20 migraine days /month How long do the migraines last- 12-24 hrs Intensity of aluycsck-3-53/10 ER visits related to migraine- none Effectiveness of botox from last two treatment(s)- this is her second treatment How many migraine days since receiving treatment- 15 migraine days Change? in intensity of migraine?- decreased Change in frequency of migraine?- decreased Change in use of acute medication for migraine?-decreased Change in quality of life?- better ER visits related to migraine?- none Have at least three months elapsed since last treatment (Last botox date - frequency of injections)- 05/2023 ??? Most frequent reported adverse reactions following injection of botox for chronic migraine include neck pain (9%), headache(5%), eyelid ptosis(4%), migraine(4%), muscular weakness(4%), musculuskeletal stiffness(4%), bronchitis(3%), injection site pain (3%), musculoskeletal pain(3%), myalgia(3%), facial paresis(2%), HTN(2%) and muscle spasms(2%) were discussed in detail. ??? Botulinum toxin typeA 200units Lot no C [id number] expiration Feb 2026 was diluted with 4 cc of normal saline . ??? Muscles injected- ??? Frontalis 2 sites ??? Masseter- 8 sites Splenius capitus- 4 sites ? Temporalis- 8 sites ? Trapezius- 6 sites- 10 units each ? Total use- 190units ??? Discarded-10units COUNT INCLUDES THE [facility] Medical History IBS (irritable bowel syndrome) GERD (gastroesophageal reflux disease) Positive ZHEN (antinuclear antibody) ADHD (attention deficit hyperactivity disorder) Surgical History Hx of appendectomy Family History Father Hypertension Mother Hypertension Cornelius's thyroiditis Maternal Grandmother Migraines Social History Alcohol intake: current Alcohol intake frequency: a few times a month Patient Tobacco Use Status: Never used Tobacco Substance Use Type: Marijuana Physical Exam Vital Signs: Last Vital Signs Pulse 72 09/13/23 08:08 Resp 16 09/13/23 08:08 BP 122/62 09/13/23 08:08 Pulse Ox 99 09/13/23 08:08 Oxygen Delivery Method Room Air 09/13/23 08:08 BMI result Body Mass Index 21.9 Const General: cooperative and no acute distress Orientation/consciousness: patient oriented x3 Resp Effort & Inspection: normal respiratory effort and able to speak in complete sentences Neuro General: patient oriented x3 Cranial nerves: Yes CN's II-XII intact bilaterally Cognition (Neuro): normal cognition Psych Appearance: grossly normal Mental Status: mental status grossly normal Speech and movement: Normal speech and movement present Affect: normal affect Attitude: cooperative Office Procedures Botulinum toxin Injection 96161 - Migraine Procedure code (CPT) selection complete Office Meds onabotulinumtoxinA 200 unit solution for injection Performing Provider: Marisol Solares MD Performing Location: [facility] [place] [facility] Administered by: Marisol Solares MD on 09/13/23 08:53 Dose Route Admin Location Dispensed Lot Number Expiration Date [facility] [employer] 190 unit subcut 200 units [id number] 02/04/26 7141-6939-99 ALLERGAN/BOTOX Comments: see HPI Assessment & Plan Assessment & Plan (1) TMJ (temporomandibular joint disorder): Code(s): M26.609 - Unspecified temporomandibular joint disorder, unspecified side Category: Medical (2) Chronic migraine without aura: Code(s): G43.709 - Chronic migraine without aura, not intractable, without status migrainosus Category: Medical Plan Patient tolerated the procedure well she will call with any side effects Orders: Orders AMB Botulinum toxin Injection - Patient Supplied Today G43.709 - Chronic migraine without aura, not intractable, without status migrainosus Medications: New onabotulinumtoxinA 200 units subcut ONCE 1 ea 0RF migraine G43.709 - Chronic migraine without aura, not intractable, without status migrainosus Coding Level of Care Code Est Pt Level 1 (70830) Diagnoses TMJ (temporomandibular joint disorder) M26.609 Chronic migraine without aura G43.709 CPT Codes Botox Injection - Botox 3: 07457 - Migraine ([id number])
== END 2023-09-13 08:41 | disposition home or self-care (01) ==
PROVIDERS: PCP Nurse Practitioner Family; Visit Provider Psychiatry & Neurology Neurology
DX: G43.709 Chronic migraine without aura, not intractable, without status migrainosus (principal)
CPT/HCPCS: 64615

== ENCOUNTER → 2023-09-13 08:03 | Outpatient (BNVA) | payer OTHER, SELFPAY | PROVIDERS: PCP Nurse Practitioner Family; Visit Provider Psychiatry & Neurology Neurology | DX: G43.709 Chronic migraine without aura, not intractable, without status migrainosus (principal); M26.609 Unspecified temporomandibular joint disorder, unspecified side | CPT/HCPCS: 64615; 99211; J0585 ==

== ENCOUNTER 2023-12-15 07:31 | Outpatient (AMB) | payer OTHER, SELFPAY ==
--- NOTE | 2023-12-15 07:37 | MHC.OFFVIS ---
Vital Signs 12/15/23 07:38 Height 5 ft 7 in Weight 140 lb 2 oz BMI 21.9 BP 116/68 Blood Pressure Location Rt brachial Position Sitting Pulse 73 Pulse Source Pulse Oximeter Pulse Oximetry (%) 98 Oxygen Delivery Method Room Air Intake Visit Reasons: Botox Intake Note: Patient presents for migraine follow up. ( Botox ) Media Buyer Required: No Accompanied by: Self / Same As Patient Allergies amoxicillin Allergy (Unknown, Verified 12/15/23 07:46) Unknown Penicillins Allergy (Unknown, Verified 12/15/23 07:46) Unknown sulfamethoxazole [From Bactrim] Allergy (Unknown, Verified 12/15/23 07:46) Hives trimethoprim [From Bactrim] Allergy (Unknown, Verified 12/15/23 07:46) Hives Medication List - Last Reconciled 12/15/23 by Marisol Solares MD cetirizine (Zyrtec) 10 mg PO DAILY PRN cholecalciferol (vitamin D3) 125 mcg PO DAILY clonidine HCl 0.2 mg PO DAILY dexmethylphenidate 10 mg PO famotidine 40 mg PO BID PRN lisdexamfetamine (Vyvanse) 30 mg PO DAILY magnesium tabs PO DAILY methylphenidate HCl ER (Concerta) 18 mg PO DAILY naltrexone mg PO DAILY onabotulinumtoxinA (Botox) 200 units IM ONCE 12 weeks propranolol 10 mg PO BID 90 days riboflavin (vitamin B2) 400 mg (4 x 100 mg) PO DAILY 30 days spironolactone 100 mg PO QAM [spore basedv probiotic PO DAILY] tretinoin 0.05% 1 appl topical BEDTIME [Tumeric curcumin 2,000 mg PO DAILY] verapamil ER 100 mg PO BEDTIME 30 days HPI Comments Details: ? 28y/o female comes for treatment of migraines with botox. How many migraine days prior to botox- >20 migraine days /month How long do the migraines last- 12-24 hrs Intensity of lubmtgoy-2-72/10 ER visits related to migraine- none Effectiveness of botox from last two treatment(s)- this is her second treatment How many migraine days since receiving treatment- 15 migraine days Change? in intensity of migraine?- decreased Change in frequency of migraine?- decreased Change in use of acute medication for migraine?-decreased Change in quality of life?- better ER visits related to migraine?- none Have at least three months elapsed since last treatment (Last botox date - frequency of injections)- 3 months ??? Most frequent reported adverse reactions following injection of botox for chronic migraine include neck pain (9%), headache(5%), eyelid ptosis(4%), migraine(4%), muscular weakness(4%), musculuskeletal stiffness(4%), bronchitis(3%), injection site pain (3%), musculoskeletal pain(3%), myalgia(3%), facial paresis(2%), HTN(2%) and muscle spasms(2%) were discussed in detail. ??? Botulinum toxin typeA 200units Lot no [id number] expiration Apr 2026 was diluted with 4 cc of normal saline . ??? Muscles injected- ??? Frontalis 2 sites ??? Masseter- 8 sites Splenius capitus- 4 sites environmental conservation officer 2 sites ? Temporalis- 8 sites 5 units each ? Trapezius- 6 sites- 10 units each ? Total use- 200units ??? Discarded-0units PFSH Medical History IBS (irritable bowel syndrome) GERD (gastroesophageal reflux disease) Positive ZHEN (antinuclear antibody) ADHD (attention deficit hyperactivity disorder) Surgical History Hx of appendectomy Family History Father Hypertension Mother Hypertension Cornelius's thyroiditis Maternal Grandmother Migraines Social History Alcohol intake: current Alcohol intake frequency: a few times a month Patient Tobacco Use Status: Never used Tobacco Substance Use Type: Marijuana Physical Exam Vital Signs: Last Vital Signs Pulse 73 12/15/23 07:38 BP 116/68 12/15/23 07:38 Pulse Ox 98 12/15/23 07:38 Oxygen Delivery Method Room Air 12/15/23 07:38 BMI result Body Mass Index 21.9 Const General: cooperative and no acute distress Orientation/consciousness: patient oriented x3 Resp Effort & Inspection: normal respiratory effort and able to speak in complete sentences Neuro General: patient oriented x3 Cranial nerves: Yes CN's II-XII intact bilaterally Cognition (Neuro): normal cognition Psych Appearance: grossly normal Mental Status: mental status grossly normal Speech and movement: Normal speech and movement present Affect: normal affect Attitude: cooperative Office Procedures Botulinum toxin Injection 11704 - Migraine Procedure code (CPT) selection complete Office Meds onabotulinumtoxinA 200 unit solution for injection Performing Provider: Marisol Solares MD Performing Location: [facility] [place] [facility] Administered by: Marisol Solares MD on 12/15/23 09:45 Dose Route Admin Location Dispensed Lot Number Expiration Date [facility] 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 200 unit subcut 200 units [id number] 04/07/26 6633-0071-84 ALLERGAN/BOTOX Comments: see HPI Assessment & Plan Assessment & Plan (1) TMJ (temporomandibular joint disorder): Code(s): M26.609 - Unspecified temporomandibular joint disorder, unspecified side Category: Medical (2) Chronic migraine without aura: Code(s): G43.709 - Chronic migraine without aura, not intractable, without status migrainosus Category: Medical Qualifiers: Status migrainosus presence: without status migrainosus Intractability: intractable Qualified Code(s): G43.719 - Chronic migraine without aura, intractable, without status migrainosus Plan Patient tolerated the procedure well she will call with any side effects Orders: Orders AMB Botulinum toxin Injection - Patient Supplied Today G43.719 - Chronic migraine without aura, intractable, without status migrainosus Medications: New onabotulinumtoxinA 200 units subcut ONCE 1 ea 0RF migraine G43.719 - Chronic migraine without aura, intractable, without status migrainosus Coding Level of Care Code Est Pt Level 1 (14707) Diagnoses TMJ (temporomandibular joint disorder) M26.609 Intractable chronic migraine without aura and without status migrainosus G43.719 Status migrainosus presence: without status migrainosus Intractability: intractable CPT Codes Botox Injection - Botox 3: 77917 - Migraine ([id number])
[2023-12-15 07:38] VITALS: BP 116/68; PULSE 73; O2SAT 98; BMI 21.9
== END 2023-12-15 08:14 | disposition home or self-care (01) ==
PROVIDERS: PCP Nurse Practitioner Family; Visit Provider Psychiatry & Neurology Neurology
DX: G43.719 Chronic migraine without aura, intractable, without status migrainosus (principal)
CPT/HCPCS: 64615

== ENCOUNTER → 2023-12-15 07:31 | Outpatient (BNVA) | payer OTHER, SELFPAY | PROVIDERS: PCP Nurse Practitioner Family; Visit Provider Psychiatry & Neurology Neurology | DX: G43.719 Chronic migraine without aura, intractable, without status migrainosus (principal); M26.609 Unspecified temporomandibular joint disorder, unspecified side | CPT/HCPCS: 64615; 99211; J0585 ==

== ENCOUNTER 2024-02-23 08:03 | Outpatient (AMB) | payer OTHER, SELFPAY ==
[2024-02-23 08:05] VITALS: BMI 21.9
--- NOTE | 2024-02-23 08:05 | MHC.OFFVIS ---
Vital Signs 02/23/24 08:05 Height 5 ft 7 in Weight 140 lb BMI 21.9 Intake Visit Reasons: Follow Up Intake Note: Patient presents for follow up Allergies amoxicillin Allergy (Unknown, Verified 02/23/24 08:08) Unknown Penicillins Allergy (Unknown, Verified 02/23/24 08:08) Unknown sulfamethoxazole [From Bactrim] Allergy (Unknown, Verified 02/23/24 08:08) Hives trimethoprim [From Bactrim] Allergy (Unknown, Verified 02/23/24 08:08) Hives Medication List - Last Reconciled 02/23/24 by SOFIA Sandhu cetirizine (Zyrtec) 10 mg PO DAILY PRN cholecalciferol (vitamin D3) 125 mcg PO DAILY clonidine HCl 0.2 mg PO DAILY dexmethylphenidate 10 mg PO famotidine 40 mg PO BID PRN galcanezumab-gnlm (Emgality Pen) mg subcut lisdexamfetamine (Vyvanse) 30 mg PO DAILY magnesium tabs PO DAILY methylphenidate HCl ER (Concerta) 18 mg PO DAILY naltrexone mg PO DAILY onabotulinumtoxinA (Botox) 200 units IM ONCE 12 weeks propranolol 10 mg PO BID 90 days riboflavin (vitamin B2) 400 mg (4 x 100 mg) PO DAILY 30 days spironolactone 100 mg PO QAM [spore basedv probiotic PO DAILY] tretinoin 0.05% 1 appl topical BEDTIME [Tumeric curcumin 2,000 mg PO DAILY] verapamil ER 100 mg PO BEDTIME 30 days HPI Comments Details: 28-yr-old female presents for f/u visit of chronic migraine. Pt denies any significant interval medical changes. Pt had f/u w/ [facility]- was dx'd w/ hypermobile EDS. And raised concern for comorbid POTs. Her PCP office has referred her for tilt-table testing, however she has not received an appointment yet. Recent normal echocardiogram as part of EDs work-up. Has history of chronic positive ZHEN. Patient reports that although Botox was helpful, typically for the 1st 6 weeks after the injection. She he was continuing to have daily headache and severe disabling attacks. Pt reports her migraine attacks are better since her PCP started her on Emgality in Jan. She has taken loading dose and 1st maintenance dose. In the past month, she feels she has had a 40-50% reduction in her overall migraine symptom burden. She is now having less migraines attacks- now actually having crystal clear headache free days which she has not had prior to starting Emgality with Botox. Has also has had less migraine associated symptoms of nausea, neck pain, allodynia. She is finding that she is not needing to take her acute migraine tx as often. She does note that the Emgality is most effective for the 1st 3 weeks of the injection cycle, and then the migraine intensity slowly increases during the last week of the injection cycle. After the last few Botox injections, she has had some difficulty chewing for a few weeks and then wears off. But this still helps with the TMJ tightness/pain. She tried verapamil ER 100 mg, however she did not tolerate it, felt it caused disabling fatigue and did not help her hand symptoms much. However since, her hand and feet coldness has improved. Uses propranolol 10mg qhs- may use an extra tab prn for acute attack, may help some w/ the anxiety r/t the migraine, palpitations. She has not had as much of orthostatic lightheadedness as much since she started taking a salt/electrolyte supplement. Note she previously did not tolerate liquid IV. Using low dose Naltrexone- for joint pain. She previously tried to hold it, but she felt increased exhaustion so resumed it. She does continue to have neck tightness and discomfort. The Botox helps this as well but not completely. Trying to exercise, light weights, walking. She was advised to avoid heavy weightlifting due to hypermobile EDS diagnosis. Patient denies current or near future plans to become . [facility] Medical History IBS (irritable bowel syndrome) GERD (gastroesophageal reflux disease) Positive ZHEN (antinuclear antibody) ADHD (attention deficit hyperactivity disorder) Surgical History Hx of appendectomy Family History Father Hypertension Mother Hypertension Cornelius's thyroiditis Maternal Grandmother Migraines Social History Alcohol intake: current Alcohol intake frequency: a few times a month Patient Tobacco Use Status: Never used Tobacco Substance Use Type: Marijuana Physical Exam Vital Signs: BMI result Body Mass Index 21.9 Const General: cooperative and no acute distress Orientation/consciousness: patient oriented x3 Resp Effort & Inspection: normal respiratory effort and able to speak in complete sentences Neuro General: patient oriented x3 Cranial nerves: Yes CN's II-XII intact bilaterally Cognition (Neuro): normal cognition Psych Appearance: grossly normal Mental Status: mental status grossly normal Speech and movement: Normal speech and movement present Affect: normal affect Attitude: cooperative Assessment & Plan Assessment & Plan (1) Chronic migraine without aura: Code(s): G43.709 - Chronic migraine without aura, not intractable, without status migrainosus Category: Medical Qualifiers: Status migrainosus presence: without status migrainosus Intractability: intractable Qualified Code(s): G43.719 - Chronic migraine without aura, intractable, without status migrainosus (2) Cold hands and feet: Comment: Improved Code(s): R20.9 - Unspecified disturbances of skin sensation Category: Medical (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 ? For overall headache management: Continue to optimize good self-care, including but not limited to maintaining a healthy diet, adequate fluid intake, adequate sleep, and engaging in regular physical activity. Track headaches. For pots and hypermobile EDS: Tilt-table test per PCP Check heart rate while standing 10 minutes. Continue paste physical activity. We will refer to PT with expertise in EDS and migraine local to pt. ? For acute headache treatment: May use OTC Tylenol, Ibuprofen, or Naproxen prn. Trial Sumatriptan 100mg tab. Propranolol 10mg IR qd prn. Previous acute migraine medication trials: None Acute migraine medication contraindications: None at this time Future consideration: gepant. ? For chronic migraine prevention medication: Continue Riboflavin 400mg qam Continue OTC Magnesium 400-500mg qhs Continue Propranolol 10mg IR q.h.s. Patient has stopped Veraapiml ER 100mg qhs- not tolerated-caused fatigue. She may continue Emgality 120 mg subcu q.month, as patient has had a significant reduction in her migraine burden w/ decrease intensity of migraine, decreased severity of associated migraine symptoms, now has a few headache-free days per month- since taking Emgality combined with Botox. Continue Botox inj q 3 months- as pt is having good clinical effect and helping cervical tightness and TMJ s/s as well. Advise patient to discuss post Botox masseter weakness with Dr. Solares, she may benefit from a slight reduction in in each masseter Botox injection dose. Previous migraine prevention medication trials: Nortriptyline not tolerated. Botox for lina TMJ- was helpful. Propranolol 60 mg ER- not tolerated- caused excessive sleepiness. Veraapiml ER 100mg qhs- not tolerated-caused fatigue Migraine prevention medication contraindications: Aimovig due to possibility of Raynaud's. ? ? 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 Orders: Orders PT Evaluation and Treatment Today G43.719 - Chronic migraine without aura, intractable, without status migrainosus, M54.2 - Cervicalgia, Q79.62 - Hypermobile Izzy-Danlos syndrome Coding Level of Care Code Est Pt Level 4 (25938) Diagnoses Intractable chronic migraine without aura and without status migrainosus G43.719 Status migrainosus presence: without status migrainosus Intractability: intractable Cold hands and feet R20.9 Hypermobile Izzy-Danlos syndrome Q79.62 Orthostatic lightheadedness R42
== END 2024-02-23 09:10 | disposition home or self-care (01) ==
PROVIDERS: PCP Nurse Practitioner Family; Visit Provider Nurse Practitioner Family
DX: G43.719 Chronic migraine without aura, intractable, without status migrainosus (principal); R20.9 Unspecified disturbances of skin sensation; Q79.62 Hypermobile Ehlers-Danlos syndrome; R42 Dizziness and giddiness
CPT/HCPCS: 99214

== ENCOUNTER → 2024-02-23 08:03 | Outpatient (BNVA) | payer OTHER, SELFPAY | PROVIDERS: PCP Nurse Practitioner Family; Visit Provider Nurse Practitioner Family ==

== ENCOUNTER 2024-03-20 07:43 | Outpatient (AMB) | payer OTHER, SELFPAY ==
--- OUTSIDE RECORDS SUMMARY | 2024-03-20 07:44 | XMS_ITS ---
Author Name [facility] Organization Unknown Problems Problem Status Onset Date Problem Type Date of Resoluti on Source Chronic migraine without aura, intractable, without status migrainosus active EncounterDiagnosisAct [facility] Cervicalgia active EncounterDiagnosisAct [facility] Hypermobile Izzy-Danlos syndrome active EncounterDiagnosisAct [facility]
--- NOTE | 2024-03-20 07:46 | A.OFFVIS_ITS ---
Intake Visit Reasons: Botox Intake Note: Patient presents for botox injection Allergies amoxicillin Allergy (Unknown, Verified 02/23/24 08:08) Unknown Penicillins Allergy (Unknown, Verified 02/23/24 08:08) Unknown sulfamethoxazole [From Bactrim] Allergy (Unknown, Verified 02/23/24 08:08) Hives trimethoprim [From Bactrim] Allergy (Unknown, Verified 02/23/24 08:08) Hives Medication List - Last Reconciled 03/20/24 by Marisol Solares MD cetirizine (Zyrtec) 10 mg PO DAILY PRN cholecalciferol (vitamin D3) 125 mcg PO DAILY clonidine HCl 0.2 mg PO DAILY dexmethylphenidate 10 mg PO famotidine 40 mg PO BID PRN galcanezumab-gnlm (Emgality Pen) mg subcut lisdexamfetamine (Vyvanse) 30 mg PO DAILY magnesium tabs PO DAILY methylphenidate HCl ER (Concerta) 18 mg PO DAILY naltrexone mg PO DAILY onabotulinumtoxinA (Botox) 200 units IM ONCE 12 weeks propranolol 10 mg PO BID 90 days riboflavin (vitamin B2) 400 mg (4 x 100 mg) PO DAILY 30 days spironolactone 100 mg PO QAM [spore basedv probiotic PO DAILY] tretinoin 0.05% 1 appl topical BEDTIME [Tumeric curcumin 2,000 mg PO DAILY] verapamil ER 100 mg PO BEDTIME 30 days HPI Comments Details: ? 28y/o female comes for treatment of migraines with botox. How many migraine days prior to botox- >20 migraine days /month How long do the migraines last- 12-24 hrs Intensity of vyasbdtx-8-04/10 ER visits related to migraine- none Effectiveness of botox from last two treatment(s)- this is her second treatment How many migraine days since receiving treatment- 15 migraine days Change? in intensity of migraine?- decreased Change in frequency of migraine?- decreased Change in use of acute medication for migraine?-decreased Change in quality of life?- better ER visits related to migraine?- none Have at least three months elapsed since last treatment (Last botox date - frequency of injections)- 3 months ??? Most frequent reported adverse reactions following injection of botox for chronic migraine include neck pain (9%), headache(5%), eyelid ptosis(4%), migraine(4%), muscular weakness(4%), musculuskeletal stiffness(4%), bronchitis(3%), injection site pain (3%), musculoskeletal pain(3%), myalgia(3%), facial paresis(2%), HTN(2%) and muscle spasms(2%) were discussed in detail. ??? Botulinum toxin typeA 200units Lot no [id number] expiration Nov 2025 was diluted with 4 cc of normal saline . ??? Muscles injected- ??? Frontalis 2 sites ??? Masseter- 6 sites Splenius capitus- 4 sites ip technology transactions attorney 2 sites ? Temporalis- 8 sites 5 units each ? Trapezius- 6 sites- 10 units each ? Total use- 200units ??? Discarded-0units PFS Medical History IBS (irritable bowel syndrome) GERD (gastroesophageal reflux disease) Positive ZHEN (antinuclear antibody) ADHD (attention deficit hyperactivity disorder) Surgical History Hx of appendectomy Family History Father Hypertension Mother Hypertension Cornelius's thyroiditis Maternal Grandmother Migraines Social History Alcohol intake: current Alcohol intake frequency: a few times a month Patient Tobacco Use Status: Never used Tobacco Substance Use Type: Marijuana Physical Exam Const General: cooperative and no acute distress Orientation/consciousness: patient oriented x3 Resp Effort & Inspection: normal respiratory effort and able to speak in complete sentences Neuro General: patient oriented x3 Cranial nerves: Yes CN's II-XII intact bilaterally Cognition (Neuro): normal cognition Psych Appearance: grossly normal Mental Status: mental status grossly normal Speech and movement: Normal speech and movement present Affect: normal affect Attitude: cooperative Office Procedures Botulinum toxin Injection 34568 - Migraine Procedure code (CPT) selection complete Office Meds onabotulinumtoxinA 200 unit solution for injection Performing Provider: Marsiol Solares MD Performing Location: [facility] [place] [facility] Administered by: Marisol Solares MD on 03/20/24 08:36 Dose Route Admin Location Dispensed Lot Number Expiration Date NDC Teacher Counselor 190 unit IM 200 units [id number] ALLERGAN/BOTOX Comments: see hpi Assessment & Plan Assessment & Plan (1) TMJ (temporomandibular joint disorder): Code(s): M26.609 - Unspecified temporomandibular joint disorder, unspecified side Category: Medical (2) Chronic migraine without aura: Code(s): G43.709 - Chronic migraine without aura, not intractable, without status migrainosus Category: Medical Qualifiers: Status migrainosus presence: without status migrainosus Intractability: intractable Qualified Code(s): G43.719 - Chronic migraine without aura, intractable, without status migrainosus Plan Patient tolerated the procedure well she will call with any side effects Orders: Orders AMB Botulinum toxin Injection Today G43.719 - Chronic migraine without aura, intractable, without status migrainosus Medications: New onabotulinumtoxinA 200 units IM ONCE 1 ea 0RF migraine G43.719 - Chronic migraine without aura, intractable, without status migrainosus Coding Level of Care Code Est Pt Level 1 (75699) Diagnoses TMJ (temporomandibular joint disorder) M26.609 Intractable chronic migraine without aura and without status migrainosus G43.719 Status migrainosus presence: without status migrainosus Intractability: intractable CPT Codes Botox Injection - Botox 3: 56030 - Migraine ([id number])
== END 2024-03-20 08:07 | disposition home or self-care (01) ==
PROVIDERS: PCP Nurse Practitioner Family; Visit Provider Psychiatry & Neurology Neurology
DX: G43.719 Chronic migraine without aura, intractable, without status migrainosus (principal)
CPT/HCPCS: 64615

== ENCOUNTER → 2024-03-20 07:43 | Outpatient (BNVA) | payer OTHER, SELFPAY | PROVIDERS: PCP Nurse Practitioner Family; Visit Provider Psychiatry & Neurology Neurology | DX: G43.719 Chronic migraine without aura, intractable, without status migrainosus (principal); M26.609 Unspecified temporomandibular joint disorder, unspecified side | CPT/HCPCS: 64615; 99211; J0585 ==

== ENCOUNTER 2024-06-26 07:42 | Outpatient (AMB) | payer OTHER, SELFPAY ==
--- NOTE | 2024-06-26 07:43 | MHC.OFFVIS ---
Vital Signs 06/26/24 07:44 Height 5 ft 7 in Weight 140 lb BMI 21.9 Intake Visit Reasons: Botox Intake Note: patient presents for Botox injection pharmacy supplied Allergies amoxicillin Allergy (Unknown, Verified 06/26/24 07:47) Unknown Penicillins Allergy (Unknown, Verified 06/26/24 07:47) Unknown sulfamethoxazole [From Bactrim] Allergy (Unknown, Verified 06/26/24 07:47) Hives trimethoprim [From Bactrim] Allergy (Unknown, Verified 06/26/24 07:47) Hives Medication List - Last Reconciled 06/26/24 by Marisol Solares MD cetirizine (Zyrtec) 10 mg PO DAILY PRN cholecalciferol (vitamin D3) 125 mcg PO DAILY clonidine HCl 0.2 mg PO DAILY dexmethylphenidate 10 mg PO famotidine 40 mg PO BID PRN galcanezumab-gnlm (Emgality Pen) mg subcut lisdexamfetamine (Vyvanse) 30 mg PO DAILY magnesium tabs PO DAILY naltrexone mg PO DAILY onabotulinumtoxinA (Botox) 200 units IM ONCE 12 weeks propranolol 10 mg PO BID 90 days riboflavin (vitamin B2) 400 mg (4 x 100 mg) PO DAILY 30 days spironolactone 100 mg PO QAM [spore basedv probiotic PO DAILY] tretinoin 0.05% 1 appl topical BEDTIME HPI Comments Details: ? 28y/o female comes for treatment of migraines with botox. How many migraine days prior to botox- >20 migraine days /month How long do the migraines last- 12-24 hrs Intensity of xjzjieni-3-90/10 ER visits related to migraine- none Effectiveness of botox from last two treatment(s)- this is her second treatment How many migraine days since receiving treatment- 15 migraine days Change? in intensity of migraine?- decreased Change in frequency of migraine?- decreased Change in use of acute medication for migraine?-decreased Change in quality of life?- better ER visits related to migraine?- none Have at least three months elapsed since last treatment (Last botox date - frequency of injections)- 3 months ??? Most frequent reported adverse reactions following injection of botox for chronic migraine include neck pain (9%), headache(5%), eyelid ptosis(4%), migraine(4%), muscular weakness(4%), musculuskeletal stiffness(4%), bronchitis(3%), injection site pain (3%), musculoskeletal pain(3%), myalgia(3%), facial paresis(2%), HTN(2%) and muscle spasms(2%) were discussed in detail. ??? Botulinum toxin typeA 200units Lot no [id number] expiration June 2026 was diluted with 4 cc of normal saline . ??? Muscles injected- ??? Frontalis 2 sites ??? Masseter- 6 sites Splenius capitus- 4 sites park warden 2 sites ? Temporalis- 8 sites 5 units each ? Trapezius- 6 sites- 10 units each ? Total use- 200units ??? Discarded-0units [facility] Medical History IBS (irritable bowel syndrome) GERD (gastroesophageal reflux disease) Positive ZHEN (antinuclear antibody) ADHD (attention deficit hyperactivity disorder) Surgical History Hx of appendectomy Family History Father Hypertension Mother Hypertension Cornelius's thyroiditis Maternal Grandmother Migraines Social History Alcohol intake: current Alcohol intake frequency: a few times a month Patient Tobacco Use Status: Never used Tobacco Substance Use Type: Marijuana Physical Exam Vital Signs: BMI result Body Mass Index 21.9 Const General: cooperative and no acute distress Orientation/consciousness: patient oriented x3 Resp Effort & Inspection: normal respiratory effort and able to speak in complete sentences Neuro General: patient oriented x3 Cranial nerves: Yes CN's II-XII intact bilaterally Cognition (Neuro): normal cognition Psych Appearance: grossly normal Mental Status: mental status grossly normal Speech and movement: Normal speech and movement present Affect: normal affect Attitude: cooperative Office Procedures Botulinum toxin Injection 80545 - Migraine Procedure code (CPT) selection complete Office Meds onabotulinumtoxinA 200 unit solution for injection Performing Provider: Marisol Solares MD Performing Location: [facility] Administered by: Marisol Solares MD on 06/26/24 08:48 Dose Route Admin Location Dispensed Lot Number Expiration Date [employer] Sales Representative 200 unit subcut 200 units [id number] ALLERGAN/BOTOX Comments: see hpi Assessment & Plan Assessment & Plan (1) TMJ (temporomandibular joint disorder): Code(s): M26.609 - Unspecified temporomandibular joint disorder, unspecified side Category: Medical (2) Chronic migraine without aura: Code(s): G43.709 - Chronic migraine without aura, not intractable, without status migrainosus Category: Medical Qualifiers: Status migrainosus presence: without status migrainosus Intractability: intractable Qualified Code(s): G43.719 - Chronic migraine without aura, intractable, without status migrainosus Plan Patient tolerated the procedure well she will call with any side effects Orders: Orders AMB Botulinum toxin Injection Today G43.719 - Chronic migraine without aura, intractable, without status migrainosus Medications: New onabotulinumtoxinA 200 units subcut ONCE 1 ea 0RF migraine G43.719 - Chronic migraine without aura, intractable, without status migrainosus Coding Level of Care Code Est Pt Level 1 (75124) Diagnoses TMJ (temporomandibular joint disorder) M26.609 Intractable chronic migraine without aura and without status migrainosus G43.719 Status migrainosus presence: without status migrainosus Intractability: intractable CPT Codes Botox Injection - Botox 3: 58250 - Migraine ([id number])
[2024-06-26 07:44] VITALS: BMI 21.9
--- OUTSIDE RECORDS SUMMARY | 2024-06-26 07:46 | XMS_ITS | Encounter Summary ---
Author Organization [facility] Address [address] [place] [id number] Care Team Providers Care Hospital Medical Assistant Name Role Phone Unavailable Primary Care Provider Unavailabl e Encounter Details Date Type Department Care Team (Late st Contact Info) Description 12/15/2023 Scanned Document [facility] [address] [id number] Provider, historical . Social History Tobacco Use Types Packs/Day Years Used Date Smoking Tobacco: Never Smokeless Tobacco: Never PHQ-2 Answer Date Recorded PHQ-2 Total Score 0 07/04/2023 Comments Unknown Sex and Gender Information Value Date Recorded Sex Assigned at Not on file Legal Sex Unknown 06/14/2023 4:33 PM EDT Gender Identity Female 07/03/2023 5:24 PM EDT Sexual Orientation Straight 07/03/2023 5: 24 PM EDT documented as of this encounter Plan of Treatment Not on file documented as of this encounter Procedures Procedure Name Priority Date/Time Associated Diagnosis Comments LAB SCAN Routine 12/15/2023 5:06 PM EDT LAB SCAN Routine 12/15/2023 5:05 PM EDT LAB SCAN Routine 12/15/2023 5:04 PM EDT documented in this encounter Results * Lab Scan (12/15/2023 5:06 PM EDT) Historical Provider LAB BLOOD ORDERABLES Final R esult * Lab Scan (12/15/2023 5:05 PM EDT) us Historical Provider LAB BLOOD ORDERABLES Final R esult * Lab Scan (12/15/2023 5:04 PM EDT) us Historical Provider LAB BLOOD ORDERABLES Final R esult documented in this encounter Visit Diagnoses Not on filedocumented in this encounter Additional Health Concerns Assessment Noted Time PHQ-9 Depression Total Score: 0 07/04/19 24 12:57 PM EDT documented as of this encounter
--- OUTSIDE RECORDS SUMMARY | 2024-06-26 07:46 | XMS_ITS | Encounter Summary ---
Author Organization [facility] Address [address] [place] [phone] Care Team Providers Care Hollow Ware Maker Name Role Phone Unavailable Primary Care Provider Unavailabl e Encounter Details Date Type Department Care Team (Late st Contact Info) Description 07/25/2023 Scanned Document [facility] [address] [facility] [address] [place], [place] [id number] eYmi Gray MD [address] [place] [address] Social History Tobacco Use Types Packs/Day Years [...] Procedure Name Priority Date/Time Associated Diagnosis Comments GENETICS SCAN Routine 07/25/2023 10:21 AM EDT documented in this encounter Results * Genetics Scan (07/25/2023 10:21 AM EDT) Yemi Rea MD GENETIC TESTIN G Final Result documented in this encounter Visit Diagnoses Not on filedocumented in this encounter Additional Health Concerns Assessment Noted Time PHQ-9 Depression Total Score: 0 07/04/19 24 12:57 PM EDT documented as of this encounter
--- OUTSIDE RECORDS SUMMARY | 2024-06-26 07:46 | XMS_ITS | Clinical Summary ---
Author Organization [facility] Address [address] [place] [address] Care Team Providers Care Legal Internship Name Role Phone Nicolás Miner MD Primary Care Provider [phone] Social History Tobacco Use Types Packs/Day Years Used Date Smoking Tobacco: Never Assessed Comments Unknown Sex and Gender Information Value Date Recorded Sex Assigned at Not on file Legal Sex Female 7:57 PM EST Gender Identity Not on file Sexual Orientation Not on file Plan of Treatment Upcoming Encounters Date Type Department Care Team (Late st Contact Info) Description 09/05/2024 8:20 AM EDT Office Visit [facility] [address] [place] [address] Clark Raza MD [address] [place] [address] [address] [place] [address] Health Maintenance Due Date Last Done Comments DTaP,Tdap,and Td Vaccines (1 - Tdap) 2015 Hepatitis B Vaccines (1 of 3 - 19+ 3-dose series) 2015 Cervical Cancer Screening: P ap Smear 2017 Depression Screening 02/06/2022 HIV Screening 02/06/2022 Hepatitis C Screening 02/06/2022 Social Influencers of Health Screening 02/06/2022 COVID-19 Vaccine (2023-2 5 season) 2023 Influenza Vaccine (Season Ended) 2024 HIB Vaccines Aged Out No longer eligi ble based on patient's age to complete this topic HPV Vaccines Aged Out No longer eligi ble based on patient's age to complete this topic Hepatitis A Vaccines Aged Out No long er eligible based on patient's age to complete this topic IPV Vaccines Aged Out No longer eligi ble based on patient's age to complete this topic MMR Vaccines Aged Out No longer eligi ble based on patient's age to complete this topic Meningococcal ACWY Vaccine Aged Out N o longer eligible based on patient's age to complete this topic Meningococcal B Vaccine Aged Out No l onger eligible based on patient's age to complete this topic Pneumococcal Vaccine: Pediat rics (0 to 5 Years) and At-Risk Patients (6 to 64 Years) Aged Out No longer eligible b ased on patient's age to complete this topic RSV Immunization Patients Un caitlin 20 months Aged Out No longer eligible b ased on patient's age to complete this topic Varicella Vaccines Aged Out No longer eligible based on patient's age to complete this topic Care Teams Legal Internship Relationship Specialty Start Date End Date Nicolás Miner MD PCP - General 09/13/23
--- OUTSIDE RECORDS SUMMARY | 2024-06-26 07:46 | XMS_ITS | Patient Health Record ---
Author Organization Nicolás Miner MD Address [address] [place] [address] [phone] Care Team Providers Care Hydrostatic Tubing Tester Name Role Phone Silvia Klein Primary Care Provider Nicolás Miner Unavailable [phone] Allergies Allergen (clinical drug ingredient) Drug/Non Drug Allergy documented on EMR Reaction Allergy Type Onset Date Status sulfamethoxazole / trimethoprim Bactrim Unknown Drug Allergy Active Penicillin Unknown Drug Allergy Active Results Component Value Reference Range Notes Cortisol-[id number] Reviewed date:06/08/2024 01:02:11 PM Interpretation: Performing Lab:[facility], [address] [facility], Phone - [phone], Director - Davey Notes/Report: Cortisol 7.1 6.2-19.4 ug/dL Please Note: The reference interval and flagging for this test is for an AM collection. If this is a PM collection please use: Cortisol PM: 2.3-11.9 Testosterone-[id number] Reviewed date:06/08/2024 01:02:11 PM Interpretation: Performing Lab:[facility], [address] [facility], [place], Phone - [phone], Director - Davey Notes/Report: Testosterone 18 13-71 ng/dL Luteinizing Hormone(LH)-0042 83 Reviewed date:06/08/2024 01:02:11 PM Interpretation: Performing Lab:[facility], [address] [facility], Phone - [phone], Director - Davey Notes/Report: LH 9.6 Adult Female Range Follicular phase 2.4 - 12.6 Ovulation phase 14.0 - 95.6 Luteal phase 1.0 - 11.4 Postmenopausal 7.7 - 58.5 FSH-[id number] Reviewed date:06/08/2024 01:02:11 PM Interpretation: Performing Lab:[facility] [address] [place] [address], Phone - [phone], Director - Jordandrflaco Notes/Report: FSH 9.2 Adult Female Range Follicular phase 3.5 - 12.5 Ovulation phase 4.7 - 21.5 Luteal phase 1.7 - 7.7 Postmenopausal 25.8 - 134.8 Progesterone-[id number] Reviewed date:06/08/2024 01:02:12 PM Interpretation: Performing Lab:[facility] [address] [place] [address], Phone - [phone], Director - Davey Notes/Report: Progesterone 0.2 Follicular phase 0.1 - 0.9 Luteal phase 1.8 - 23.9 Ovulation phase 0.1 - 12.0 First trimester 11.0 - 44.3 Second trimester 25.4 - 83.3 Third trimester 58.7 - 214.0 Postmenopausal 0.0 - 0.1 ACTH, Plasma-[id number] Reviewed date:06/08/2024 01:02:12 PM Interpretation: Performing Lab:[facility] [address] [place] [address], Phone - [phone], Director - Davey Notes/Report: ACTH, Plasma 14.5 7.2-63.3 pg/mL ACTH referenc e interval for samples collected between 7 and 10 AM. Prolactin-[id number] Reviewed date:06/08/2024 01:02:12 PM Interpretation: Performing Lab:[facility] [address] [place] [address], Phone - [phone], Director - Jordandry Notes/Report: Prolactin 15.2 4.8-33.4 ng/mL Estrogens, Total-[id number] Reviewed date:06/08/2024 01:02:12 PM Interpretation: Performing Lab:[facility] [address] [place] [address], Phone - [phone], Director - Jordandry Notes/Report: Estrogens, Total 116 Prepubertal < 40 Female Cycle: 1-10 Days 16 - 328 11-20 Days 34 - 501 21-30 Days 48 - 350 Post-Menopausal 40 - 244 UA/M w/rflx Culture, Routine -[id number] Reviewed date:06/08/2024 01:02:12 PM Interpretation: Performing Lab:[facility] [place], [address] [facility], [place], Phone - [phone], Director - Davey Notes/Report: Specific Lenox 1.012 1.005-1.030 pH 5.5 5.0-7.5 Urine-Color Yellow Yellow Appearance Clear Clear WBC Esterase Negative Negative Protein Negative Negative/Trace Glucose Negative Negative Ketones Negative Negative Occult Blood Negative Negative Bilirubin Negative Negative Urobilinogen,Semi-Qn 0.2 0.2-1.0 mg/dL Nitrite, Urine Negative Negative Microscopic Examination Micr oscopic follows if indicated. Microscopic Examination See below: Micr oscopic was indicated and was performed. Urinalysis Reflex This speci men has reflexed to a Urine Culture. WBC 6-10 0 - 5 /hpf RBC None seen 0 - 2 /hpf Epithelial Cells (non renal) 0-10 0 - 10 /hpf Casts None seen None seen /lpf Bacteria Few None seen/Few Urine Culture, Routine Final report Result 1 No growth Anti-Mullerian Hormone (AMH) -[id number] Reviewed date:06/08/2024 01:02:12 PM Interpretation: Performing Lab:[facility] [place], [address] [facility], [place], Phone - [phone], Director - Davey Notes/Report: Anti-Mullerian Hormone (AMH) 1.97 For assays employing antibodies, the possibility exists for interference by heterophile antibodies in the samples.1 1.Morgan Pryor Interferences in Immunoassays - still a threat. Clin. Chem. 2000; 46: 2610-9814. This test was developed and its performance characteristics determined by [employer]. It has not been cleared or approved by the Food and Drug Administration. Reference Range: Females 26 - 30y: 1.03 - 11.10 Median 4.20 AMH concentrations of >= 1.06 ng/mL is correlated with a better response to ovarian stimulation, produced more retrievable oocytes and higher odds of live according to Shiraer et al. Fertility and Sterility. 2010: 94:3801-7709. The current AMH test method correlates with the study method with a slope of 0.94. Females at risk of ovarian hyperstimulation syndrome or polycystic ovarian syndrome (PCOS) may exhibit elevated serum AMH concentrations. AMH levels from PCOS patients may be 2 to 5 fold higher than age-appropriate reference interval values. Granulosa cell tumors of the ovary may secrete AMH along with other tumor markers. Elevated AMH is not specific for malignancy, and the assay should not be used exclusively to diagnose or exclude an AMH-secreting ovarian tumor. Iron and TIBC-[id number] Reviewed date:06/08/2024 01:02:12 PM Interpretation: Performing Lab:[facility], Phone - [phone], Director - [facility] Notes/Report: Iron Bind.Cap.(TIBC) 346 250-450 ug/dL UIBC 219 131-425 ug/dL Iron 127 27-159 ug/dL Iron Saturation 37 15-55 % Magnesium-[id number] Reviewed date:06/08/2024 01:02:12 PM Interpretation: Performing Lab:[facility], Phone - [phone], Director - [facility] Notes/Report: Magnesium 1.8 1.6-2.3 mg/dL Urinalysis, Complete-[id number] Reviewed date:06/08/2024 01:02:12 PM Interpretation: Performing Lab:[facility] [address], Phone - [phone], Director - [facility] Notes/Report: Specific Lenox 1.023 1.005-1.030 pH 6.5 5.0-7.5 Urine-Color Yellow Yellow Appearance Clear Clear WBC Esterase 1+ Negative Protein 1+ Negative/Trace Glucose Negative Negative Ketones Negative Negative Occult Blood Trace Negative Bilirubin Negative Negative Urobilinogen,Semi-Qn 0.2 0.2-1.0 mg/dL Nitrite, Urine Negative Negative Microscopic Examination See below: Micr oscopic was indicated and was performed. WBC >30 0 - 5 /hpf RBC None seen 0 - 2 /hpf Epithelial Cells (non renal) >10 0 - 10 /hpf Casts None seen None seen /lpf Bacteria Many None seen/Few Ferritin-[id number] Reviewed date:06/08/2024 01:02:12 PM Interpretation: Performing Lab:[facility], Phone - [phone], Director - [facility] Notes/Report: Ferritin 36 15-150 ng/mL CBC With Differential/Platel et-[id number] Reviewed date:06/08/2024 01:02:12 PM Interpretation: Performing Lab:[facility], [address] [facility], Phone - [phone], Director - Davey Notes/Report: WBC 4.9 3.4-10.8 x10E3/uL RBC 4.21 3.77-5.28 x10E6/uL Hemoglobin 12.9 11.1-15.9 g/dL Hematocrit 39.4 34.0-46.6 % MCV 94 79-97 fL MCH 30.6 26.6-33.0 pg MCHC 32.7 31.5-35.7 g/dL RDW 11.4 11.7-15.4 % Platelets 262 150-450 x10E3/uL Neutrophils 48 Not Estab. % Lymphs 38 Not Estab. % Monocytes 9 Not Estab. % Eos 3 Not Estab. % Basos 2 Not Estab. % Neutrophils (Absolute) 2.4 1.4-7.0 x10E3/uL Lymphs (Absolute) 1.9 0.7-3.1 x10E3/uL Monocytes(Absolute) 0.4 0.1-0.9 x10E3/uL Eos (Absolute) 0.1 0.0-0.4 x10E3/uL Baso (Absolute) 0.1 0.0-0.2 x10E3/uL Immature Granulocytes 0 Not Estab. % Immature Grans (Abs) 0.0 0.0-0.1 x10E3/uL Vitamin D, 55-Kjgdkvt-[id number] Reviewed date:06/08/2024 01:02:12 PM Interpretation: Performing Lab:[facility], [address] [facility], Phone - [phone], Director - Davey Notes/Report: Vitamin D, 25-Hydroxy 37.5 30.0-100.0 ng/mL Vitamin D deficiency has been defined by the [place] of [employer] and an Endocrine Society practice guideline as a level of serum 25-OH vitamin D less than 20 ng/mL (1,2). The Endocrine Society went on to further define vitamin D insufficiency as a level between 21 and 29 ng/mL (2). 1. IOM ([place] of [employer]). 2010. Dietary reference intakes for calcium and D. [place]: The National Academies Press. 2. Abraham MF, Malu LEES, Windy SIDDIQUI, et al. Evaluation, treatment, and prevention of vitamin D deficiency: an Endocrine Society clinical practice guideline. JCEM. 2010; 96(7):1911-30. Albumin/Creatinine Ratio,Gregory ne-201214 Reviewed date:06/08/2024 01:02:12 PM Interpretation: Performing Lab:[facility] [place], [address] [place] [address], Phone - [phone], Director - MDJodry Notes/Report: Creatinine, Urine 247.5 Not Estab. mg/dL Albumin, Urine 35.9 Not Estab. ug/mL Alb/Creat Ratio 15 0-29 mg/g creat Normal: 0 - 29 Moderately increased: 30 - 300 Severely increased: >300 HCV Antibody RFX to Quant PC R-[id number] Reviewed date:06/08/2024 01:02:12 PM Interpretation: Performing Lab:[facility] [place], [address] [place] [address], Phone - [phone], Director - MDJodry Notes/Report: HCV Ab Non Reactive Non Reactive Interpretation: Not infected with HCV unless early or acute infection is suspected (which may be delayed in an immunocompromised individual), or other evidence exists to indicate HCV infection. Comp. Metabolic Panel ([id number] Reviewed date:06/08/2024 01:02:12 PM Interpretation: Performing Lab:[facility] [place], [address] [place] [address], Phone - [phone], Director - MDJodry Notes/Report: Glucose 87 70-99 mg/dL BUN 10 6-20 mg/dL Creatinine 0.91 0.57-1.00 mg/dL eGFR 88 >59 mL/min/1.73 BUN/Creatinine Ratio 11 9-23 Sodium 137 134-144 mmol/L Potassium 4.6 3.5-5.2 mmol/L Chloride 101 96-106 mmol/L Carbon Dioxide, Total 24 20-29 mmol/L Calcium 9.5 8.7-10.2 mg/dL Protein, Total 6.5 6.0-8.5 g/dL Albumin 4.3 4.0-5.0 g/dL Globulin, Total 2.2 1.5-4.5 g/dL Bilirubin, Total 0.4 0.0-1.2 mg/dL Alkaline Phosphatase 54 44-121 IU/L AST (SGOT) 23 0-40 IU/L ALT (SGPT) 23 0-32 IU/L LP+Non-HDL Cholesterol-80683 5 Reviewed date:06/08/2024 01:02:13 PM Interpretation: Performing Lab:[facility] [address] [place] [address], Phone - [phone], Director - MDJodry Notes/Report: Cholesterol, Total 156 100-199 mg/dL Triglycerides 48 0-149 mg/dL HDL Cholesterol 58 >39 mg/dL VLDL Cholesterol Amando 10 5-40 mg/dL LDL Chol Calc (NIH) 88 0-99 mg/dL Non-HDL Cholesterol 98 0-129 mg/dL EKG Reviewed date:08/05/2023 12:50:19 PM Interpretation: Performing Lab: Notes/Report: ECGDiastolicBP 0 ECGHr 65 ECGPRInterval 120 ECGPWaveAxis -1 ECGQRSDuration 90 ECGQrsWaveAxis 69 ECGQTcInterval 418 ECGQTInterval 410 ECGSystolicBP 0 ECGTWaveAxis 50 RR_DiastolicBP 0 RR_MaxRRInterval 0 RR_MeanHR 0 RR_MeanRRInterval 0 RR_MinRRInterval 0 RR_NumBeats 0 RR_NumNormalBeats 0 RR_SystolicBP 0 PDF Report Reviewed date:08/04/2023 09:53:44 PM Interpretation: Performing Lab:[facility], [address] [place] [address], Phone - [phone], Director - MDPamelay Notes/Report: Rheumatoid Factor (RF)-61441 2 Reviewed date:08/04/2023 09:53:44 PM Interpretation: Performing Lab:[facility], [address] [place] [address], Phone - [phone], Director - MDJodry Notes/Report: Rheumatoid Factor (RF) <10.0 <14.0 IU/mL Anti-CCP Ab, IgG/IgA-[id number] Reviewed date:08/04/2023 09:53:44 PM Interpretation: Performing Lab:[facility] [address] [place] [address], Phone - [phone], Director - MDJodry Notes/Report: Anti-CCP Ab, IgG/IgA 3 0-19 units Negative <20 Weak positive 20 - 39 Moderate positive 40 - 59 Strong positive >59 Reason For Referral Reason Tilt table test for assessment of POTS Faxed Diagnosis 1 Postural orthostatic tachycardia syndrome [POTS] (G90.A) Referral Organization Nicolás WEBER Referring Provider First Name Silvia Referring Provider Last Name Klein Referring Provider Speciality Nurse Prac dannieionenisreen Referred Provider Clark Raza Referred Provider Specialty Cardiology General Notes [facility] 05/2023 03:07:04 PM > faxed, [facility] 09/22/2023 01:26:34 PM > lm on vm for kristen at [facility] [phone], [facility] 09/22/2023 02:27:17 PM > She will [facility] directly with patient, [facility] 01:22:26 PM > Patient called to check on referral gave the number to reach out to Kristen directly., [facility] 05/03/2024 02:07:05 PM >Kristen called patient is booked with for 09/05/24 @ 8:20 AM if their is a sooner appt they will call her directly. Referral Priority Routine Medications Medication SIG (Take, Route, Frequency, Duration) Notes Start Date End Date Status FLUoxetine HCl 10 MG TAKE 1 CAPSULE BY MOUTH DAILY for 30 Active Vyvanse 40 MG 1 capsule in the morning Orally Once a day for 30 days 05/29/2024 Active Cromolyn Sodium 100 MG/5ML Oral for 72 Days Active Naltrexone HCl 50 MG 4.5 mg Orally Once a day Active cloNIDine HCl 0.1 MG TAKE 2 TABLETS BY MOUTH EVERY DAY Orally Once a day for 90 days Active Magnesium Active Carvedilol 3.125 MG TAKE 1 TABLET BY MOUTH TWICE DAILY WITH FOOD for 90 Active Spironolactone 100 MG 1 tablet Orally Once a day for 30 days Active Retin-A 0.025 % 1 application in the evening to face Externally Once a day 02/07/2024 Active Emgality Active Dexmethylphenidate HCl 10 MG 1 tablet Oral Once a Day for 37 days Pt was shorted 7 tablets last fill 05/29/2024 07/05/2024 Active Ondansetron 4 MG 1 tablet on the tongue and allow to dissolve Orally Once a day for 14 days 04/24/2022 Active Antihistamine Active Probiotic Active Vitamin D Active Immunizations Vaccine Route Administration Date Status Comme nts Influenza-Afluria (IIV4) Unknown 01/16/2022 Administere d *Td Unknown 05/04/2023 Refused Social History Alcohol Screen (Audit-C) Question Answer Notes Did you have a drink contain ing alcohol in the past year? Yes How often did you have a dri nk containing alcohol in the past year? Monthly or less (1 point) How many drinks did you have on a typical day when you were drinking in the past year? 1 or 2 drinks (0 point) How often did you have 6 or more drinks on one occasion in the past year? Less than monthly (1 point) Points 2 Interpretation Negative Problems Problem Type SNOMED Code ICD Code Onset Dates Problem Status W/U Status Risk Notes Problem Rickettsiosis (926406139) Rickettsiosis, unspecified (A79.9) Active confirmed Problem Vitamin D deficiency (99106471) Vitamin D deficiency, unspecified (E55.9) Active confirmed Problem Attention deficit hyperactivity disorder, combined type (57349368) Attention-deficit hyperactivity disorder, combined type (F90.2) Active confirmed Problem Chronic intractable migraine without aura (509138409027781) Chronic migraine without aura, intractable, without status migrainosus (G43.719) Active confirmed Problem Essential hypertension (95766219) Essential (primary) hypertension (I10) Active confirmed Problem Hypermobility syndrome (63653515) Hypermobility syndrome (M35.7) Active confirmed Problem Intermenstrual bleeding - irregular (33129404) Excessive and frequent menstruation with irregular cycle (N92.1) Active confirmed Problem High antibody titer (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) Raised antibody titer (R76.0) Active confirmed Problem Mast cell activation syndrome (disorder) (5461445244566391 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 Problem Premenstrual dysphoric disorder (988771) Premenstrual dysphoric disorder (F32.81) Active confirmed Problem Postural orthostatic tachycardia syndrome (disorder) (966461614) Postural orthostatic tachycardia syndrome [POTS] (G90.A) Active confirmed Problem Marfan's syndrome (87551555) Marfan syndrome with other cardiovascular manifestations (Q87.418) Active confirmed Vital Signs Heart Rate 88 /min 05/24/2024 Temperature 96.8 degrees Fahrenheit 05/24/2024 Oximetry 98 % 05/24/2024 Blood pressure diastolic 70 mm Hg 05/24/2024 Height 67.5 in 05/24/2024 Blood pressure systolic 118 mm Hg 05/24/2024 Weight 142 lbs 05/24/2024 BMI 21.91 kg/m2 05/24/2024 Procedures Procedure Date Ordered Date Performed Result Body Sit e HOLTER MONITOR, 7 DAYS, INTERPRETATION 09/07/2023 N/A HOLTER MONITOR, 7 DAYS, APPLICATION 08/05/2023 N/A COLONOSCOPY 08/05/2023 06/06/2023 N/A Encounters Encounter Location Date Provider Diagnosis Nicolás Miner MD [address] [id number] 08/03/2023 Silvia Klein Chronic migraine without aura, intractable, without status migrainosus G43.719 ; Attention-deficit hyperactivity disorder, combined type F90.2 ; Hypermobility syndrome M35.7 ; Pain in joints of unspecified hand M25.549 ; Functional diarrhea K59.1 and Palpitations R00.2 Nicolás Miner MD [address] [id number] 08/05/2023 Nicolás Miner Palpitations R00.2 Nicolás Miner MD [address] [id number] 09/07/2023 Silvia Klein Attention-deficit hyperactivity disorder, combined type F90.2 ; Chronic migraine without aura, intractable, without status migrainosus G43.719 ; Hypermobility syndrome M35.7 ; Palpitations R00.2 and Postural orthostatic tachycardia syndrome [POTS] G90.A Nicolás Miner MD [address] [id number] 11/08/2023 Silvia Klein Chloasma L81.1 ; Premenstrual dysphoric disorder F32.81 ; Attention-deficit hyperactivity disorder, combined type F90.2 ; Chronic migraine without aura, intractable, without status migrainosus G43.719 ; Hypermobility syndrome M35.7 and Postural orthostatic tachycardia syndrome [POTS] G90.A Nicolás Miner MD [address] [id number] 01/17/2024 Silvia Klein Chronic migraine without aura, intractable, without status migrainosus G43.719 Nicolás Miner MD [address] [id number] 02/07/2024 Silvia Klein Chloasma L81.1 ; Chronic migraine without aura, intractable, without status migrainosus G43.719 ; Attention-deficit hyperactivity disorder, combined type F90.2 ; Hypermobility syndrome M35.7 and Postural orthostatic tachycardia syndrome [POTS] G90.A Nicolás Miner MD [address] [id number] 05/07/2024 Silvia Klein Encounter for [facility] adult medical examination without abnormal findings Z00.00 ; Chronic migraine without aura, intractable, without status migrainosus G43.719 ; Attention-deficit hyperactivity disorder, combined type F90.2 ; Postural orthostatic tachycardia syndrome [POTS] G90.A ; Hypermobility syndrome M35.7 ; Other mast cell activation disorder D89.49 ; Premenstrual dysphoric disorder F32.81 ; Essential (primary) hypertension I10 ; Vitamin D deficiency, unspecified E55.9 ; Encounter for screening for cardiovascular disorders Z13.6 ; Encounter for immunization Z23 ; Encounter for antibody response examination Z01.84 ; Encounter for screening for other viral diseases Z11.59 ; Encounter for screening examination for other mental health and behavioral disorders Z13.39 and Encounter for screening for malignant neoplasm of cervix Z12.4 Nicolás Miner MD [address] [id number] 05/24/2024 Silvia Klein Excessive and freque nt menstruation with irregular cycle N92.1 ; Chronic migraine without aura, intractable, without status migrainosus G43.719 ; Postural orthostatic tachycardia syndrome [POTS] G90.A ; Hypermobility syndrome M35.7 and Essential (primary) hypertension I10 Nicolás Miner MD [address] [id number] 08/03/2023 Silvia Miner MD [address] [id number] 09/07/2023 Silvia Miner MD [address] [id number] 09/13/2023 Silvia Miner MD [address] [id number] 09/14/2023 Silvia Klein Attention-deficit hyperactivity disorder, combined type F90.2 Nicolás Miner MD [address] [id number] 10/05/2023 Silvia Klein Chronic migraine without aura, intractable, without status migrainosus G43.719 Nicolás Miner MD [address] [id number] 10/18/2023 Silvia Klein Chronic migraine without aura, intractable, without status migrainosus G43.719 Nicolás Miner MD [address] [id number] 11/11/2023 Silvia Klein Nicolás Miner MD [address] [id number] 11/16/2023 Silvia Klein Nicolás Miner MD [address] [id number] 12/06/2023 Silvia Klein Nicolás Miner MD [address] [id number] 03/28/2024 Silvia Klein Nicolás Miner MD [address] [id number] 04/04/2024 Silvia Klein Nicolás Miner MD [address] [id number] 05/07/2024 Silvia Klein Nicolás Miner MD [address] [id number] 06/08/2024 Silvia Klein Other fatigue R53.83 Nicolás Miner MD [address] [id number] 06/25/2024 Silvia Klein Nicolás Miner MD [address] [id number] 07/11/2023 Silvia Klein Attention-deficit hyperactivity disorder, combined type F90.2 Nicolás Miner MD [address] [id number] 07/19/2023 Silvia Klein Attention-deficit hyperactivity disorder, combined type F90.2 Nicolás Miner MD [address] [id number] 08/08/2023 Silvia Klein Attention-deficit hyperactivity disorder, combined type F90.2 Nicolás Miner MD [address] [id number] 08/08/2023 Silvia Klein Chronic migraine without aura, intractable, without status migrainosus G43.719 Nicolás Miner MD [address] [id number] 08/12/2023 Silvia Klein Attention-deficit hyperactivity disorder, combined type F90.2 Nicolás Miner MD [address] [id number] 08/17/2023 Silvia Klein Attention-deficit hyperactivity disorder, combined type F90.2 Nicolás Miner MD [address] [id number] 08/18/2023 Silvia Klein Nicolás Miner MD [address] [id number] 09/11/2023 Silvia Klein Nicolás Miner MD [address] [id number] 09/11/2023 Silvia Klein Nicolás Miner MD [address] [id number] 09/12/2023 Silvia Klein Attention-deficit hyperactivity disorder, combined type F90.2 Nicolás Miner MD [address] [id number] 09/27/2023 Silvia Lkein Nicolás Miner MD [address] [id number] 09/28/2023 Silvia Klein Nicolás Miner MD [address] [id number] 10/06/2023 Silvia Klein Attention-deficit hyperactivity disorder, combined type F90.2 Nicolás Miner MD [address] [id number] 10/09/2023 Silvia Klein Nicolás Miner MD [address] [id number] 10/24/2023 Silvia Klein Nicolás Miner MD [address] [id number] 10/31/2023 Silvia Klein Nicolás Miner MD [address] [id number] 12/01/2023 Silvia Klein Attention-deficit hyperactivity disorder, combined type F90.2 Nicolás Miner MD [address] [id number] 12/29/2023 Silvia Klein Attention-deficit hyperactivity disorder, combined type F90.2 Nicolás Miner MD [address] [id number] 01/23/2024 Silvia Klein Chronic migraine without aura, intractable, without status migrainosus G43.719 Nicolás Miner MD [address] [id number] 01/30/2024 Silvia Klein Attention-deficit hyperactivity disorder, combined type F90.2 Nicolás Miner MD [address] [id number] 02/22/2024 Silvia Klein Nicolás Miner MD [address] [id number] 02/22/2024 Silvia Klein Chronic migraine without aura, intractable, without status migrainosus G43.719 Nicolás Miner MD [address] [id number] 03/02/2024 Nicolás Miner Attention-deficit hyperactivity disorder, combined type F90.2 Nicolás Miner MD [address] [id number] 03/27/2024 Silvia Klein Attention-deficit hyperactivity disorder, combined type F90.2 Nicolás Miner MD [address] [id number] 03/29/2024 Silvia Klein Nicolás Miner MD [address] [id number] 04/19/2024 Silvia Klein Attention-deficit hyperactivity disorder, combined type F90.2 Nicolás Miner MD [address] [id number] 05/07/2024 Silvia Klein Nicolás Miner MD [address] [id number] 05/27/2024 Silvia Klein Attention-deficit hyperactivity disorder, combined type F90.2 Assessments Encounter Date Diagnosis (ICD Code) Assessment Notes Treatment Notes Treatment Clinical Notes Section Notes 07/11/2023 Attention-deficit hyperactivity disorder, combined type (ICD-10 - F90.2) last filled per masspat: 06/17/2023 07/19/2023 Attention-deficit hyperactivity disorder, combined type (ICD-10 - F90.2) last filled per masspat: 06/10/2023 08/03/2023 Attention-deficit hyperactivity disorder, combined type (ICD-10 - F90.2) Stable and patient has seen great improvement in her concentration and focus since returning to use of Vyvanse for managing her ADHD. She is also taking her short acting Adderall in the middle of the day as needed for breakthrough focus and concentration issues 08/03/2023 Chronic migraine without aura, intractable, without status migrainosus (ICD-10 - G43.719) Patient to continue tracking her migraines and to remain on her medications as prescribed by her functional medicine provider as well as her neurologist. Patient is considering switching her functional medicine prescriptions to our office as her functional medicine provider does not accept her insurance. Patient to notify me through the portal of the medications that she is receiving, and the dosing to determine if I can begin prescribing these medications for her 08/05/2023 Palpitations (ICD-10 - R00.2) 08/08/2023 Attention-deficit hyperactivity disorder, combined type (ICD-10 - F90.2) last filled: 07/16/2023 08/08/2023 Chronic migraine without aura, intractable, without status migrainosus (ICD-10 - G43.719) 08/12/2023 Attention-deficit hyperactivity disorder, combined type (ICD-10 - F90.2) 08/17/2023 Attention-deficit hyperactivity disorder, combined type (ICD-10 - F90.2) last filled per [facility]: 07/22/2023 09/07/2023 Attention-deficit hyperactivity disorder, combined type (ICD-10 - F90.2) Stable and patient has seen great improvement in her concentration and focus since returning to use of Vyvanse for managing her ADHD. She is also taking her short acting Adderall in the middle of the day as needed for breakthrough focus and concentration issues 09/12/2023 Attention-deficit hyperactivity disorder, combined type (ICD-10 - F90.2) last filled per [facility]: 08/19/2023 09/14/2023 Attention-deficit hyperactivity disorder, combined type (ICD-10 - F90.2) 10/05/2023 Chronic migraine without aura, intractable, without status migrainosus (ICD-10 - G43.719) 10/06/2023 Attention-deficit hyperactivity disorder, combined type (ICD-10 - F90.2) last filled: 09/13/23 and 09/14/23 10/18/2023 Chronic migraine without aura, intractable, without status migrainosus (ICD-10 - G43.719) 11/08/2023 Chloasma (ICD-10 - L81.1) Discussed discolorations noted to face which seems suspicious for melasma. Pt is followed by [facility], and she would like to continue working with this provider for continued management of her skin concerns. 11/08/2023 Premenstrual dysphoric disorder (ICD-10 - F32.81) DIscussed patient's change in mood, more around her menstrual cycles. Patient admits to feeling more raged from ovulation till start of her menstrual cycles. Discussed that this cyclical pattern may be related to underlying PMDD. Would like pt to begin Prozac from start of ovulation to start of her menstrual cycle to see if this can better manage her mood changes. If pt does feel improvement in her moods, she can also consider taking this as a daily medication in the future. Plan will be for patient to track her moods and will schedule a 3-month follow-up to reassess symptoms since starting Prozac 12/01/2023 Attention-deficit hyperactivity disorder, combined type (ICD-10 - F90.2) last filled: 11/09/23 12/29/2023 Attention-deficit hyperactivity disorder, combined type (ICD-10 - F90.2) 01/17/2024 Chronic migraine without aura, intractable, without status migrainosus (ICD-10 - G43.719) Taught patient how t o self administer the Emgality injection Sub Q into her stomach, Patient self administered 120 ML of the Emgality. Patient aware to adminster the injection once a month. 01/23/2024 Chronic migraine without aura, intractable, without status migrainosus (ICD-10 - G43.719) 01/30/2024 Attention-deficit hyperactivity disorder, combined type (ICD-10 - F90.2) 02/07/2024 Chronic migraine without aura, intractable, without status migrainosus (ICD-10 - G43.719) Patient to continue tracking her migraines and to remain on her medications as prescribed by her functional medicine provider as well as her neurologist and Category Manager. Patient has seen improvement in the severity and frequency of her headaches/migraines since adding Emgality to her regimen. Plan will be for follow up in 3 months to reassess symptoms and review headache/migraine journal 02/07/2024 Chloasmnaila (ICD-10 - L81.1) Pt is followed by [facility] for treatment of Melasma, and she would like to continue working with this provider for continued management of her skin concerns. 02/22/2024 Chronic migraine without aura, intractable, without status migrainosus (ICD-10 - G43.719) 03/02/2024 Attention-deficit hyperactivity disorder, combined type (ICD-10 - F90.2) 03/27/2024 Attention-deficit hyperactivity disorder, combined type (ICD-10 - F90.2) 04/19/2024 Attention-deficit hyperactivity disorder, combined type (ICD-10 - F90.2) 05/07/2024 Chronic migraine without aura, intractable, without status migrainosus (ICD-10 - G43.719) Patient to continue tracking her migraines and to remain on her medications as prescribed by her functional medicine provider as well as her neurologist, hand hose cutter, and 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 Patient has seen improvement in the severity and frequency of her headaches/migraines since adding Emgality to her regimen but has noticed recent intense migraines that have correlated with elevated BP readings with her home BP monitor and near her menstrual cycles. Plan will be for patient to be seen in office in 1 to 2 weeks to reassess blood pressure and adjust medications as warranted to further improve her migraine/headache days as well as her blood pressure 05/07/2024 Encounter for general adult medical examination without abnormal findings (ICD-10 - Z00.00) General healthcare up-to-date. Will obtain updated routine labs.Plan will be for annual in 1 year 05/24/2024 Excessive and frequent menstruation with irregular cycle (ICD-10 - N92.1) Patient has noticed increased irregularity in her menstrual cycles. She has noticed her period will either come late or early as well as go from heavy to light each cycle. Discussed with patient that her underlying spironolactone use may be a factor in her menstrual cycles. Would like to obtain hormone levels for further evaluation as patient has been on spironolactone for years and if there is hormonal imbalances patient may benefit from discontinuing use of spironolactone. Patient agreeable with this plan 05/27/2024 Attention-deficit hyperactivity disorder, combined type (ICD-10 - F90.2) 06/08/2024 Other fatigue (ICD-10 - R53.83) 05/07/2024 Attention-deficit hyperactivity disorder, combined type (ICD-10 - F90.2) Stable and patient has seen great improvement in her concentration and focus with Vyvanse. Patient also continues to take her short-acting Dexmethylphenidate in the middle of the day as needed for breakthrough focus and concentration issues. Discussed with patient her recent elevated blood pressure readings and do not suspect that her ADHD medications are causing this elevation as all prior visits patient has had normal blood pressure readings despite taking these treatments for ADHD 05/24/2024 Chronic migraine without aura, intractable, without status migrainosus (ICD-10 - G43.719) Patient with longstanding history of chronic migraines. Patient to continue tracking her migraines and remain on her current medication regimen as she feels as though this combination has helped improve her headache and migraine severity and frequency but has not resolved her symptoms. 02/07/2024 Attention-deficit hyperactivity disorder, combined type (ICD-10 - F90.2) Stable and patient has seen great improvement in her concentration and focus with Vyvanse. Patient also continues to take her short-acting Dexmethylphenidate in the middle of the day as needed for breakthrough focus and concentration issues. 08/03/2023 Hypermobility syndrome (ICD-10 - M35.7) Discussed with patient her symptoms/findings on previous exam of hypermobility Patient is followed by [facility] and his pending lab results of her genetic testing. Patient also underwent an echocardiogram which did not reveal any concerns for underlying vascular disease 09/07/2023 Chronic migraine without aura, intractable, without status migrainosus (ICD-10 - G43.719) Patient to continue tracking her migraines and to remain on her medications as prescribed by her functional medicine provider as well as her neurologist. Patient is considering switching her functional medicine prescriptions to our office as her functional medicine provider does not accept her insurance. Patient to notify me through the portal of the medications that she is receiving, and the dosing to determine if I can begin prescribing these medications for her. Will also being Qulipta to see if this can better manage her headache/migraine frequency and severity. Samples of 60mg tablets of Qulipta provided to pt in office today. Plan will be for follow up in 2 months to reassess symptoms and review headache/migraine journal 09/07/2023 Hypermobility syndrome (ICD-10 - M35.7) Discussed with patient her symptoms/findings on previous exam of hypermobility Patient is followed by [facility] and his pending review of genetic testing lab results. Patient also previously underwent an echocardiogram which did not reveal any concerns for underlying vascular disease 09/07/2023 Palpitations (ICD-10 - R00.2) Patient continues to share concerns of intermittent palpitations and episodes of increased heart rate, with and without activity. Reviewed results of 7-day Holter monitor which was predominately NSR with episodes of EAR. Discussed with patient that further evaluation for her tachycardic events would be beneficial and would like patient to be seen by Dr. Raza to undergo further evaluation for POTS and potentially complete a tilt table test. No additional medications warranted as patient is already taking a beta-anthony which can assist with management of palpitations and tachycardia. 11/08/2023 Attention-deficit hyperactivity disorder, combined type (ICD-10 - F90.2) Stable and patient has seen great improvement in her concentration and focus with Vyvanse. Patient also continues to take her short-acting Dexmethylphenidate in the middle of the day as needed for breakthrough focus and concentration issues. Last filled per [facility]: 10/12/23 08/03/2023 Pain in joints of unspecified hand (ICD-10 - M25.549) Patient continues to have pain daily in all the joints of both of her hands. Patient without significant findings to explain her pain but will obtain lab work to further evaluate and rule out rheumatoid arthritis given her families RA history 02/07/2024 Hypermobility syndrome (ICD-10 - M35.7) Patient is followed by [facility] for concerns of H-EDS with mass cell and potential POTS. Discussed that her headaches could be stemming from cervical instability due to H-EDS. Encouraged pt to begin EDS based PT (which she can research online) to help strength the muscles in her shoulders/back to help manage any potential worsening headache symptoms stemming for her neck. Pt aware to follow up sooner than 3 months should her symptoms worsen or new symptoms of concern begin 05/24/2024 Postural orthostatic tachycardia syndrome [POTS] (ICD-10 - G90.A) Patient is pending a n apt with Dr. Raza in September for further evaluation for underlying POTS given increased heart rate episodes and palpitations 05/07/2024 Postural orthostatic tachycardia syndrome [POTS] (ICD-10 - G90.A) Patient is pending a n apt with Dr. Raza for further evaluation for underlying POTS given increased heart rate episodes and palpitations in September. 05/24/2024 Hypermobility syndrome (ICD-10 - M35.7) Patient is followed by [facility] for concerns of H-EDS with mass cell and potential POTS (pending a tilt table test). Discussed that her headaches could be stemming from cervical instability due to H-EDS. Encouraged pt to continue with EDS based PT at home to help strengthen the muscles in her shoulders/back to help manage any potential worsening headache symptoms stemming for her neck. 05/07/2024 Hypermobility syndrome (ICD-10 - M35.7) Patient is followed by [facility] for concerns of H-EDS with mass cell and potential POTS. Discussed that her headaches could be stemming from cervical instability due to H-EDS. Encouraged pt to begin continue with EDS based PT at home to help strengthen the muscles in her shoulders/back to help manage any potential worsening headache symptoms stemming for her neck. 02/07/2024 Postural orthostatic tachycardia syndrome [POTS] (ICD-10 - G90.A) Patient is pending a n apt with Dr. Raza for further evaluation for underlying POTS given increased heart rate episodes and palpitations. She states she has not heard from his office regarding a tilt table but will plan to follow up with them at the beginning of the year to obtain an apt 11/08/2023 Chronic migraine without aura, intractable, without status migrainosus (ICD-10 - G43.719) Patient to continue tracking her migraines and to remain on her medications as prescribed by her functional medicine provider as well as her neurologist and Category Manager. Patient to contact the office once she is able to obtain her Emgality to review proper use and administration of this monthly injectable medication. Discussed with pt that if her headaches do improve we can consider stopping other medications, one at a time, to see if her headaches are managed with an injectable over multiple medications, which would be patient wish is to be on fewer medications to help her manage her symptoms. Plan will be for follow up in 3 months to reassess symptoms and review headache/migraine journal 09/07/2023 Postural orthostatic tachycardia syndrome [POTS] (ICD-10 - G90.A) Patient agreeable to be seen by Dr. Raza for further evaluation for underlying POTS given increased heart rate episodes and palpitations. 08/03/2023 Functional diarrhea (ICD-10 - K59.1) Patient recently underwent colonoscopy without significant findings per pt. She states there was a mention of internal hemorrhoids and patient to continue working on proper dietary intake to assist with managing her bowel changes 08/03/2023 Palpitations (ICD-10 - R00.2) Patient shares concerns of intermittent palpitations and episodes of increased heart rate, with and without activity. Discussed with patient that obtaining an EKG and a 7-day Holter monitor would be helpful in determining underlying causes such as cardiac arrhythmias. EKG machine not available but pt agreeable to return Tuesday to complete an EKG have a 7 day Holter monitor placed with a 1-month follow-up to review Holter monitor results. 11/08/2023 Hypermobility syndrome (ICD-10 - M35.7) Discussed with patient her symptoms/findings on previous exam of hypermobility Patient is followed by [facility] for concerns of H-EDS with mass cell and potential POTS 05/24/2024 Essential (primary) hypertension (ICD-10 - I10) Reviewed with patient her concerns of increased headache symptoms as well as findings of elevated blood pressure readings on her larry monitor. Reviewed patient's blood pressure log which did show persistent elevated blood pressures of 140s/80s. Patient's in office blood pressure readings completed by myself as well as Dr. Miner which did reveal lower blood pressure levels than what patient was getting at [facility]. Did discuss proper use of home blood pressure monitors and encouraged patient not to use a wrist blood pressure cuff as this can greatly skew the accurate blood pressure readings. Patient does have a known history of orthostatic hypotension and discussed with patient that managing her blood pressure is important but would also need to ensure we do not overcorrect and cause increased episodes of hypotension. Patient to remain on current carvedilol use as this is a low-dose and she does state she has had shown improvement in her headache symptoms and elevated blood pressure readings since starting this regimen. Patient to begin monitoring her blood pressure with a home monitor that is not the wrist monitor she has been previously using. Plan will be for follow-up in 1 month to reassess blood pressure log as well as symptoms and determine if any further adjustment is warranted. 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 She remains on fluoxetine with good relief of symptoms 11/08/2023 Postural orthostatic tachycardia syndrome [POTS] (ICD-10 - G90.A) Patient agreeable to be seen by Dr. Raza for further evaluation for underlying POTS given increased heart rate episodes and palpitations. She states she has not heard from his office and encouraged pt to contact his office to schedule her visit 05/07/2024 Essential (primary) hypertension (ICD-10 - I10) Patient with new findings of elevated blood pressure readings on her home monitor. Would like patient to follow-up in office in 1 to 2 weeks to reassess blood pressure. Will obtain lab work including a microalbumin level to rule further assess for underlying hypertension. Suspect that patient's increase in migraine/headache days may be related to elevated blood pressure readings as her home monitor readings are averaging 140s/80s. Patient does have a known history of orthostatic hypotension and discussed with patient that managing her blood pressure is important but would also need to ensure we do not overcorrect and cause increased episodes of hypotension. Would like patient to discontinue propranolol and begin a low-dose of carvedilol twice daily to see if this can further improve her palpitations, dizziness, and blood pressure until patient is evaluated in the office and further management as discussed and planned for should patient have true hypertension.Also discussed with patient that she is currently taking spironolactone for hair and skin concerns as prescribed by dermatology and that her symptoms of dizziness may be related to spironolactone use. Reviewed all medications and could consider adjusting medications as low dose Naltrexone could be a cause of some BP elevation, although pt has been on this for over a year without any elevated BP readings noted in office since pt established care with our practice. Will obtain lab work for baseline to help guide further management of hypertension as well as symptoms of dizziness. Patient agreeable with this plan. Also advised patient to monitor her blood pressure at home. Would like patient to take her blood pressure in the morning as she states she feels well during the day. Patient will experience headaches more in the afternoon and advised patient to take her blood pressure then, and we can review her blood pressure readings at next follow-up appointment 05/07/2024 Vitamin D deficiency, unspecified (ICD-10 - E55.9) Will check level to verify that there is no deficiency 05/07/2024 Encounter for screening for cardiovascular disorders (ICD-10 - Z13.6) Discussed with patient her home blood pressure monitor readings that are elevated. Will check for comorbidity of hyperlipidemia and hyperglycemia to further assess risk 05/07/2024 Encounter for immunization (ICD-10 - Z23) Vaccines up-to-date 05/07/2024 Encounter for antibody response examination (ICD-10 - Z01.84) Titers have been checked in the past and there is immunity to rubeola 05/07/2024 Encounter for screening for other viral diseases (ICD-10 - Z11.59) Will screen for hepatitis C as per general recommendation 05/07/2024 Encounter for screening examination for other mental health and behavioral disorders (ICD-10 - Z13.39) PHQ score reviewed and no further interventions warranted at this time 05/07/2024 Encounter for screening for malignant neoplasm of cervix (ICD-10 - Z12.4) Patient completed he r Pap smear in 2021 through [facility]. Patient is aware she is due for an updated pap smear this year to ensure she remains up to date with cervical cancer screenings. Patient also aware that if she is not able to secure an appointment with her gynecology office to follow-up with our office and schedule gynecology evaluation to complete her Pap smear to ensure she is up-to-date with Pap smears 01/17/2024 Other 05/07/2024 Other Plan Of Treatment Pending Test Test Name Order Date Ultrasound : Breast, right 05/12/2022 HOLTER MONITOR, 7 DAYS, APPLICATION 07/07 HOLTER MONITOR, 7 DAYS, INTERPRETATION 0 09/07/2023 Cortisol-[id number] 06/08/2024 Next Appt Details Provider Name:Silvia Klein , 07/03/2024 10:00:00 AM, [address] [place] [address], [phone], Provider Name:Silvia Grover Klein , 05/16/2025 09:00:00 AM, [address] [place] [address], [place] [address], [place], [place], [phone], Insurance Providers Payer Name Payer Address Payer Phone Subscriber Number Group Number Insured Name Patient Relationship to Insured Coverage Start Date Coverage End Date [facility] [address] [place] [address] [id number] Elvira Braun Self - patient is the insured Medical (General) History Medical History History ICD Code ADHD Migraines (since childhood) Elevated TPO antibody Genetic testing through [employer] - revealed potential BRCA 2 gene Surgical History Surgery Date(Month/Year) Appendix 2013 Hospitalization History Reason Date(Month/Year) Appendix 2013
--- OUTSIDE RECORDS SUMMARY | 2024-06-26 07:46 | XMS_ITS ---
Author Organization Nicolás Miner MD Address [address] [place] [phone] Care Team Providers Care Aircraft Technician Name Role Phone Silvia Klein Primary Care Provider Allergies Allergen (clinical drug ingredient) Drug/Non Drug Allergy documented on EMR Reaction Allergy Type Onset Date Status sulfamethoxazole / trimethoprim Bactrim Unknown Drug Allergy Active Penicillin Unknown Drug Allergy Active REASON FOR VISIT New Refill Request Medications Medication SIG (Take, Route, Frequency, Duration) Notes Start Date End Date Status Vyvanse 40 MG 1 capsule in the morning Orally Once a day for 30 days 05/29/2024 Active Dexmethylphenidate HCl 10 MG 1 tablet Oral Once a Day for 37 days Pt was shorted 7 tablets last fill 05/29/2024 07/05/2024 Active Encounters Encounter Location Date Provider Diagnosis Nicolás Miner MD [address] [phone] 05/27/2024 Silvia Klein Attention-deficit hyperactivity disorder, combined type F90.2 Assessments Encounter Date Diagnosis (ICD Code) Assessment Notes Treatment Notes Treatment Clinical Notes Section Notes 05/27/2024 Attention-deficit hyperactivity disorder, combined type (ICD-10 - F90.2) Plan Of Treatment Medication Medication Name Sig Start Date Stop Date Notes Vyvanse 40 MG 1 capsule in the morning Orally Once a day for 30 days 05/29/2024 Dexmethylphenidate HCl 10 MG 1 tablet Or al Once a Day for 37 days 05/29/2024 07/05/2024 Pt was shorted 7 tablets last fill Next Appt Details Provider Name:Silvia Klein , 07/03/2024 10:00:00 AM, [address] [place] [address], [phone], Provider Name:Silvia Klein , 05/16/2025 09:00:00 AM, [address] [place] [address], [address], [phone], Progress Notes * Cielo VILLEGASOB:1995 (29 yo F)Acc No.[id number]:05/27/2024 Patient:?Elvira VILLEGAS :1995???Age:29 Y???Sex:Female Address:[address] [place] [address], [phone] * Refills? Refill Vyvanse Capsule, 40 MG, Orally, 30 Capsule, 1 capsule in the morning, Once a day, 30 days, Refills=0 Refill Dexmethylphenidate HCl Tablet, 10 MG, Oral, 37 Tablet, 1 tablet, Once a Day, 37 days, Refills=0 Subjective: * Chief Complaints: * ???New Refill Request * Medical History:? * Surgical History:? * Hospitalization/Major Diagno stic Procedure:? * Medications:? * Allergies:?PenicillinBactrim no[Allergies Verified] Objective: * Vitals:? Past Vitals:* 05/24/2024 Temp:96.8F, HR: 115 /min,88/ min, BP: Sitting Right Arm:132/84 mm Hg,Own Machine:165/98 mm Hg,Sitting Left Arm:130/76 mm Hg,Sitting Right Arm:118/70mm Hg, Wt:142lbs, BMI:21.91Index, Ht:67.5in, Oxygen sat %:98% * 05/07/2024 HR:83/min, BP:Own Machine:14 5/83mm Hg, Ht: 67.5 in * 02/07/2024 Temp:97.2F, HR:88/min, BP:11 8/68mm Hg, Ht: 67.5 in, Oxygen sat %:99% * Physical Examination:? Assessment: * Assessment: 1.?Attention-deficit hyperac tivity disorder, combined type - F90.2??? Plan: * Treatment: * Procedure Codes:? * true * Date:? Generated for Collin allen/Nancy/Kevin on:?06/26/2024 07:46 AM EDT
--- OUTSIDE RECORDS SUMMARY | 2024-06-26 07:46 | XMS_ITS | Clinical Summary ---
Author Organization [address] Address [address] [place] [phone] Phone Care Team Providers Care Conveyor Loader Name Role Phone Unavailable Primary Care Provider Unavailabl e Allergies Active Allergy Reactions Criticality Noted Date Comments Amoxicillin Hives High 07/04/2023 Sulfamethoxazole-Trimethoprim Hives High 2023 Penicillins Hives High 07/04/2023 Medications cloNIDine HCL (CATAPRES) 0.1 mg tablet Take 2 tablets (0.2 mg total) by mouth daily. Active dexmethylphenid ate (FOCALIN) 10 mg tablet Take 1 tablet (10 mg total) by mouth daily. 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 Social History Tobacco Use Types Packs/Day Years Used Date Smoking Tobacco: Never Smokeless Tobacco: Never Tobacco Cessation:Counseling Given: Not Answered PHQ-2 Answer Date Recorded PHQ-2 Total Score 0 07/04/2023 Comments Unknown Sex and Gender Information Value Date Recorded Sex Assigned at Not on file Legal Sex Unknown 06/14/2023 4:33 PM EDT Gender Identity Female 07/03/2023 5:24 PM EDT Sexual Orientation Straight 07/03/2023 5: 24 PM EDT Last Filed Vital Signs Vital Sign Reading Time Taken Comments Blood Pressure 115/80 07/04/2023 12:58 PM EDT Pulse 90 07/04/2023 12:57 PM EDT Temperature 36.7 ??C (98.1 ??F) 07/04/2023 12:57 PM E DT Respiratory Rate - - Oxygen Saturation 100% 07/04/2023 12:57 PM EDT Inhaled Oxygen Concentration - - Weight 60.3 kg (133 lb) 07/04/2023 12:57 PM EDT Height 171.5 cm (5' 7.5 ) 07/04/2023 12:57 PM ED T Body Mass Index 20.52 07/04/2023 12:57 PM EDT Plan of Treatment Health Maintenance Due Date Last Done Comments HIV screening 2009 Hepatitis C screening 2014 Tetanus adult (Td q 10,TDAP once) 2016 Covid-19 vaccine series ( season) 2023 Influenza vaccine 11/05/2024 01/16/2022 RSV Immunization (1 - 1-dose 75+ series) 2071 Meningococcal Vaccine Aged Out No jeanine alireza eligible based on patient's age to complete this topic Pneumococcal Vaccine (2 - 49 years) Aged Out No longer eligible b ased on patient's age to complete this topic Insurance [facility] [employer] ACCESS PLAN [employer] OPEN ACCESS PLAN [employer] OPEN ACCESS PLAN
--- OUTSIDE RECORDS SUMMARY | 2024-06-26 07:46 | XMS_ITS | Clinical Summary ---
Author Organization [facility] Address [address] [place] [address] Care Team Providers Care Unit Operator Name Role Phone Silvia Klein MD Primary Care Provider [phone] Social History Tobacco Use Types Packs/Day Years Used Date Smoking Tobacco: Never Assessed Comments Unknown Sex and Gender Information Value Date Recorded Sex Assigned at Not on file Legal Sex Female 3:10 PM EST Gender Identity Not on file Sexual Orientation Not on file Plan of Treatment Upcoming Encounters Date Type Department Care Team (Late st Contact Info) Description 10/25/2024 11:30 AM EDT Evaluation [address] [phone] [employer], 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 [address] [place] [address] Geneva Shi, PT [address] [place] [address] 10/30/2024 5:00 PM EDT Treatment [address] [phone] System, Provider Not In Geneva Shi, PT [address] [place] [address] 11/13/2024 5:00 PM EDT Treatment [address] [phone] System, Provider Not In eGneva Shi, PT [address] [place] [address] 11/20/2024 5:00 PM EDT Treatment [address] [place] [phone] System, Provider Not In Geneva Shi, PT [address] [place] [address] 11/27/2024 5:00 PM EDT Treatment [address] [place] [address] System, Provider Not In Geneva Shi, PT [address] [place] [address] 12/04/2024 5:00 PM EDT Treatment [address] [place] [phone] System, Provider Not In Geneva Shi, PT [address] [place] [address] 12/11/2024 5:00 PM EDT Treatment [address] [place] [address] System, Provider Not In Geneva Shi, PT [address] [place] [address] 12/18/2024 5:00 PM EDT Treatment [address] [place] [address] System, Provider Not In Geneva Shi, PT [address] [place] [address] 12/25/2024 5:00 PM EDT Treatment [address] [place] [address] System, Provider Not In [place] Shi, PT [address] [place] [address] Health Maintenance Due Date Last Done Comments Hepatitis C Virus Screening 1996 HIV Screening 2009 DTaP/Tdap/Td Vaccines (1 - Tdap) 2015 Hepatitis B Vaccines (1 of 3 - 19+ 3-dose series) 2015 Pap Smear (Ages 21-65) 2017 Influenza Vaccine 10/06/2023 COVID-19 Vaccine ( - 2023-2 5 season) 2023 HPV Vaccines Aged Out No longer eligi ble based on patient's age to complete this topic Pneumococcal Vaccine: Pediat dortohy (0-5 Years) and At-Risk Patients (6 to 49 Years) Aged Out No longer eligible b ased on patient's age to complete this topic [place] [address] [place] [id number] [facility]IOR[facility] Care Teams Unit Operator Relationship Specialty Start Date End Date Silvia Klein MD [address] [place] [phone] PCP - General General Medicine 03/12/24
--- OUTSIDE RECORDS SUMMARY | 2024-06-26 07:46 | XMS_ITS ---
Author Organization Nicolás Miner MD Address [address] [place] [phone] Care Team Providers Care Fire Observer Name Role Phone Silvia Klein Primary Care Provider [phone] REASON FOR VISIT New Refill Request Encounters Encounter Location Date Provider Diagnosis Nicolás Miner MD [address] [place] [address] [place] [phone] 06/25/2024 Silvia Klein Plan Of Treatment Next Appt Details Provider Name:Silvia Klein , 07/03/2024 10:00:00 AM, [address] [place] [address], [phone], Provider Name:Silvia Klein , 05/16/2025 09:00:00 AM, [address] [place] [address], [phone], Progress Notes * LESTERUriel ESCOBARMirianOB:1995 (29 yo F)Acc No.[id number]:06/25/2024 Patient:?Elvira VILLEGAS :1995???Age:29 Y???Sex:Female Address:[place], [address] * * Date:?
--- OUTSIDE RECORDS SUMMARY | 2024-06-26 07:46 | XMS_ITS ---
Author Organization Nicolás Miner MD Address [address] [place] [phone] Care Team Providers Care Child Psychology Teacher Name Role Phone Chapin Kleinley Primary Care Provider REASON FOR VISIT results Encounters Encounter Location Date Provider Diagnosis Nicolás Miner MD [address] [phone] 06/08/2024 Silvia Klein Other fatigue R53.83 Assessments Encounter Date Diagnosis (ICD Code) Assessment Notes Treatment Notes Treatment Clinical Notes Section Notes 06/08/2024 Other fatigue (ICD-10 - R53.83) Plan Of Treatment Pending Test Test Name Order Date Cortisol06/08/2024 Next Appt Details Provider Name:Silvia Reilly Ernie , 07/03/2024 10:00:00 AM, [address] [place] [address], [phone], Provider Name:Silvia Klein , 05/16/2025 09:00:00 AM, [address] [place] [address], [phone], Progress Notes * Uriel VILLEGASMirianOB:1995 (29 yo F)Acc No.[id number]:06/08/2024 Patient:?Elvira VILLEGAS :1995???Age:29 Y???Sex:Female Address:[address] [place] [address], [place], [phone] Subjective: * Chief Complaints: * ???Results * Medical History:? * Surgical History:? * Hospitalization/Major Diagno stic Procedure:? * Medications:? Objective: * Vitals:? Past Vitals:* 05/24/2024 Temp:96.8F, HR: 115 /min,88/ min, BP: Sitting Right Arm:132/84 mm Hg,Own Machine:165/98 mm Hg,Sitting Left Arm:130/76 mm Hg,Sitting Right Arm:118/70mm Hg, Wt:142lbs, BMI:21.91Index, Ht:67.5in, Oxygen sat %:98% * 05/07/2024 HR:83/min, BP:Own Machine:14 5/83mm Hg, Ht: 67.5 in * 02/07/2024 Temp:97.2F, HR:88/min, BP:11 8/68mm Hg, Ht: 67.5 in, Oxygen sat %:99% * Physical Examination:? Assessment: * Assessment: 1.?Other fatigue - R53.83 (P rimary)??? Plan: * Treatment: * Procedure Codes:? * true * Date:? Generated for Collin allen/Nancy/Sulaimansmitting on:?06/26/2024 07:45 AM EDT
--- OUTSIDE RECORDS SUMMARY | 2024-06-26 07:46 | XMS_ITS | Encounter Summary ---
Author Organization [facility] Address [address] [place] [phone] Care Team Providers Care Scuba Diving Instructor Name Role Phone Unavailable Primary Care Provider Unavailabl e Encounter Details Date Type Department Care Team (Late st Contact Info) Description 11/22/2023 Scanned Document [facility] [address] [place] [phone] Provider, Historical . Social History Tobacco Use Types Packs/Day [...] Date/Time Associated Diagnosis Comments GENETICS SCAN Routine 11/22/2023 1:30 PM EDT documented in this encounter Results * Genetics Scan (11/22/2023 1:30 PM EDT) Historical Provider GENETIC TESTING Final Result documented in this encounter Visit Diagnoses Not on filedocumented in this encounter Additional Health Concerns Assessment Noted Time PHQ-9 Depression Total Score: 0 07/04/19 24 12:57 PM EDT documented as of this encounter
== END 2024-06-26 08:05 | disposition home or self-care (01) ==
LOC: HO.HSMS 07:43
PROVIDERS: PCP Nurse Practitioner Family; Visit Provider Psychiatry & Neurology Neurology
DX: G43.719 Chronic migraine without aura, intractable, without status migrainosus (principal)
CPT/HCPCS: 64615

== ENCOUNTER → 2024-06-26 07:42 | Outpatient (BNVA) | payer OTHER, SELFPAY | PROVIDERS: PCP Nurse Practitioner Family; Visit Provider Psychiatry & Neurology Neurology | DX: G43.719 Chronic migraine without aura, intractable, without status migrainosus (principal); M26.609 Unspecified temporomandibular joint disorder, unspecified side | CPT/HCPCS: 64615; 99211; J0585 ==

== ENCOUNTER 2024-08-22 07:59 | Outpatient (AMB) | payer OTHER, SELFPAY ==
--- OUTSIDE RECORDS SUMMARY | 2024-08-22 08:09 | XMS_ITS | Patient Health Record ---
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 Name Role Phone KleinSilvia Primary Care Provider [phone] [facility] Unavailable [phone] Allergies Allergen (clinical drug ingredient) Drug/Non Drug Allergy documented on EMR Reaction Allergy Type Onset Date Status sulfamethoxazole / trimethoprim Bactrim Unknown Drug Allergy Active Penicillin Unknown Drug Allergy Active Results Component Value Reference Range Notes MR Brain Reviewed date:08/21/2024 11:19:35 AM Interpretation: Performing Lab: Notes/Report: Original Report EXAM: MR BRAIN WITHOUT AND WITH CONTRAST INDICATION: Chronic migraine TECHNIQUE: MR imaging of the brain was performed in multiple planes with multiple sequences prior to and following intravenous administration of gadolinium contrast according to standard protocol. 14 mL of Dotarem was injected. COMPARISON: None. FINDINGS: Brain parenchyma: There is no mass, mass effect, or midline shift. There is no restricted diffusion, acute infarct, or parenchymal hemorrhage. There is no significant parenchymal signal abnormality. There is no abnormal parenchymal enhancement. Ventricles, sulci, and cisterns: Appropriate for age. Extra-axial space: There is no focal collection. Meninges: There is no abnormal enhancement. Flow voids: The major vascular flow voids are intact. Paranasal sinuses and mastoid air cells: Clear Globes and orbits: Unremarkable. Calvarium and extracranial soft tissues: Unremarkable. IMPRESSION: No significant intracranial abnormality is identified. Read by: VANGIE KELLY MD Reviewed and Electronically Signed by: VANGIE KELLY MD MR Cervical Reviewed date:08/21/2024 11:19:35 AM Interpretation: Performing Lab: Notes/Report: Original Report EXAM: MR CERVICAL SPINE WITHOUT CONTRAST CLINICAL INFORMATION: Patient complains of neck pain and migraine headaches. TECHNICAL INFORMATION: Sagittal T1, sagittal T2, sagittal STIR, axial T2 volume, axial gradient echo. ENCOUNTER: Initial COMPARISON: None INTERPRETATION: There is straightening of the usual cervical lordosis. There is normal signal noted within the cord. The cervicomedullary junction is intact. There are normal vertebral body heights. No bone marrow edema is seen. C1 is intact upon C2. At the C2-C3 level, a minimal disc bulge minimally indents the thecal sac. At the C3-C4 level, and minimal disc bulge minimally indents the thecal sac. At the C4-C5 level, minimal disc bulge minimally indents the thecal sac. At the C5-C6 level, there is a small focal central disc protrusion which mildly narrows the spinal canal. The neural foramen are patent. At the C6-C7 level, no disc herniation is seen. The C7-T1 level, no disc herniation is seen. There is no evidence of any muscle edema or atrophy noted involving the visualized paraspinal muscles. CONCLUSION: 1. Straightening of the usual cervical lordosis. 2. Minimal disc bulges at C2-C3, C3-C4 and C4-C5. 3. Small focal central disc protrusion of C5-C6 minimally narrows the spinal canal. Read by: Romulo Moy M.D. Reviewed and Electronically Signed by: Romulo Myo M.D. Cortisol-[id number] Reviewed date:06/08/2024 01:02:11 PM Interpretation: Performing Lab:[facility], [address] [place] [address], [place], Phone - [phone], Director - Davey Notes/Report: Cortisol 7.1 6.2-19.4 ug/dL Please Note: The reference interval and flagging for this test is for an AM collection. If this is a PM collection please use: Cortisol PM: 2.3-11.9 Testosterone-[id number] Reviewed date:06/08/2024 01:02:11 PM Interpretation: Performing Lab:[facility], [address] [place], [place] [address]Art[place], Phone - [phone], Director Mk Mariscal Notes/Report: Testosterone 18 13-71 ng/dL Luteinizing Hormone(LH)-0042 83 Reviewed date:06/08/2024 01:02:11 PM Interpretation: Performing Lab:[facility], [address] [place] [address], Phone - [phone], Director Mk Mariscal Notes/Report: LH 9.6 Adult Female Range Follicular phase 2.4 - 12.6 Ovulation phase 14.0 - 95.6 Luteal phase 1.0 - 11.4 Postmenopausal 7.7 - 58.5 FSH-[id number] Reviewed date:06/08/2024 01:02:11 PM Interpretation: Performing Lab:[facility], [address] [place] [address], Phone - [phone], Director Mk Mariscal Notes/Report: FSH 9.2 Adult Female Range Follicular phase 3.5 - 12.5 Ovulation phase 4.7 - 21.5 Luteal phase 1.7 - 7.7 Postmenopausal 25.8 - 134.8 Progesterone-[id number] Reviewed date:06/08/2024 01:02:12 PM Interpretation: Performing Lab:[facility], [address] [place] [address], Phone - [phone], Director Mk Mariscal Notes/Report: Progesterone 0.2 Follicular phase 0.1 - 0.9 Luteal phase 1.8 - 23.9 Ovulation phase 0.1 - 12.0 First trimester 11.0 - 44.3 Second trimester 25.4 - 83.3 Third trimester 58.7 - 214.0 Postmenopausal 0.0 - 0.1 ACTH, Plasma-[id number] Reviewed date:06/08/2024 01:02:12 PM Interpretation: Performing Lab:[facility], [address] [place] [address], Phone - [phone], Director Mk Mariscal Notes/Report: ACTH, Plasma 14.5 7.2-63.3 pg/mL ACTH referenc e interval for samples collected between 7 and 10 AM. Prolactin-[id number] Reviewed date:06/08/2024 01:02:12 PM Interpretation: Performing Lab:[facility], [address] [place] [address], Phone - [phone], Director - AKSilvano Notes/Report: Prolactin 15.2 4.8-33.4 ng/mL Estrogens, Total-[id number] Reviewed date:06/08/2024 01:02:12 PM Interpretation: Performing Lab:[facility] [place], [address] [place] [address], Phone - [phone], [facility] Notes/Report: Estrogens, Total 116 Prepubertal < 40 Female Cycle: 1-10 Days 16 - 328 11-20 Days 34 - 501 21-30 Days 48 - 350 Post-Menopausal 40 - 244 UA/M w/rflx Culture, Routine -[id number] Reviewed date:06/08/2024 01:02:12 PM Interpretation: Performing Lab:[facility] [address], Phone - [phone], Director - Davey Notes/Report: Specific [place] 1.012 1.005-1.030 pH 5.5 5.0-7.5 Urine-Color Yellow [...] Result 1 No growth Anti-Mullerian Hormone (AMH) -[id number] Reviewed date:06/08/2024 01:02:12 PM Interpretation: Performing Lab:[facility] [address], [place], Phone - [phone], Director - Davey Notes/Report: Anti-Mullerian Hormone (AMH) 1.97 For assays employing antibodies, the possibility exists for interference by heterophile antibodies in the samples.1 1.Morgan Pryor Interferences in Immunoassays - still a threat. Clin. Chem. 2000; 46: 7189-4493. This test was developed and its performance characteristics determined by [employer]. It has not been cleared or approved by the Food and Drug Administration. Reference Range: Females 26 - 30y: 1.03 - 11.10 Median 4.20 AMH concentrations of >= 1.06 ng/mL is correlated with a better response to ovarian stimulation, produced more retrievable oocytes and higher odds of live according to Christine et al. Fertility and Sterility. 2010: 94:9471-8747. The current AMH test method correlates with [...] exclude an AMH-secreting ovarian tumor. Iron and TIBC-[id number] Reviewed date:06/08/2024 01:02:12 PM Interpretation: Performing Lab:[facility] [address], Phone - [phone], [facility] Notes/Report: Iron Bind.Cap.(TIBC) 346 250-450 ug/dL UIBC 219 131-425 ug/dL Iron 127 27-159 ug/dL Iron Saturation 37 15-55 % Magnesium-040684 Reviewed date:06/08/2024 01:02:12 PM Interpretation: Performing Lab:[facility] [address], Phone - [phone], Director - [facility]/Report: Magnesium 1.8 1.6-2.3 mg/dL Ferritin-[id number] Reviewed date:06/08/2024 01:02:12 PM Interpretation: Performing Lab:[facility] [address], Phone - [phone], Director [facility] Notes/Report: Ferritin 36 15-150 ng/mL Vitamin D, 94-Uboliqf-461553 Reviewed date:06/08/2024 01:02:12 PM Interpretation: Performing Lab:[facility] [facility] [address], Phone - [phone], Director - Davey Notes/Report: Vitamin D, 25-Hydroxy 37.5 30.0-100.0 ng/mL Vitamin D deficiency has been defined by the [place] of Medicine and an Endocrine Society practice guideline as a level of serum 25-OH vitamin D less than 20 ng/mL (1,2). The Endocrine Society went on to further define vitamin D insufficiency as a level between 21 and 29 ng/mL (2). 1. IOM ([place] of Medicine). 2010. Dietary reference intakes for calcium and D. [place]: The National Academies Press. 2. Abraham MF, Malu NC, Windy SIDDIQUI, et al. Evaluation, treatment, and prevention of vitamin D deficiency: an Endocrine Society clinical practice guideline. JCEM. 2010; 96(7):1911-30. Albumin/Creatinine Ratio,Uri ne-[id number] Reviewed date:06/08/2024 01:02:12 PM Interpretation: Performing Lab:[facility] [place], [address] [place] [address], Phone - [phone], Director - Davey Notes/Report: Creatinine, Urine 247.5 Not Estab. mg/dL Albumin, Urine 35.9 Not Estab. ug/mL Alb/Creat Ratio 15 0-29 mg/g creat Normal: 0 - 29 Moderately increased: 30 - 300 Severely increased: >300 HCV Antibody RFX to Quant PC R-[id number] Reviewed date:06/08/2024 01:02:12 PM Interpretation: Performing Lab:[facility] [place], [address] [place] [address], Phone - [phone], Director - Davey Notes/Report: HCV Ab Non Reactive Non Reactive Interpretation: Not infected with HCV unless early or acute infection is suspected (which may be delayed in an immunocompromised individual), or other evidence exists to indicate HCV infection. Urinalysis, Complete-[id number] Reviewed date:06/08/2024 01:02:12 PM Interpretation: Performing Lab:[facility] [place], [address] [place] [address], Phone - [phone], Director - Davey Notes/Report: Specific [place] 1.023 1.005-1.030 pH 6.5 5.0-7.5 Urine-Color Yellow [...] None seen /lpf Bacteria Many None seen/Few CBC With Differential/Platel et-[id number] Reviewed date:06/08/2024 01:02:12 PM Interpretation: Performing Lab:[facility], [address] [facility], [place], Phone - [phone], Director - Davey Notes/Report: WBC 4.9 3.4-10.8 [...] % Immature Grans (Abs) 0.0 0.0-0.1 x10E3/uL Comp. Metabolic Panel (14)-3 22117 Reviewed date:06/08/2024 01:02:12 PM Interpretation: Performing Lab:[facility] [place], [employer] [facility], [place], Phone - [phone], Director - Davey Notes/Report: Glucose 87 70-99 mg/dL BUN 10 [...] IU/L ALT (SGPT) 23 0-32 IU/L LP+Non-HDL Cholesterol-53331 5 Reviewed date:06/08/2024 01:02:13 PM Interpretation: Performing Lab:[facility], [address] [facility], [place], Phone - [phone], Director - Davey Notes/Report: Cholesterol, Total 156 100-199 mg/dL Triglycerides 48 0-149 mg/dL HDL Cholesterol 58 >39 mg/dL VLDL Cholesterol Amando 10 5-40 mg/dL LDL Chol Calc ([facility]) 88 0-99 mg/dL Non-HDL Cholesterol 98 0-129 mg/dL Reason For Referral Reason Tilt table test for assessment of POTS Faxed Diagnosis 1 Postural orthostatic tachycardia syndrome [POTS] (G90.A) Referral Organization [facility] Referring Provider First Name Silvia Referring Provider Last Name Ernie Referring Provider Speciality Nurse Prac titioner Referred Provider Clark Raza Referred Provider Specialty Cardiology General Notes Shania BARRETO 05/2023 03:07:04 PM > faxed, Shania BARRETO 09/22/2023 01:26:34 PM > lm on for kristen at [facility] [phone], Shnaia BARRETO 09/22/2023 02:27:17 PM > She will book directly with patient, Shania BARREOT 10/31/2023 01:22:26 PM > Patient called to check on referral gave the number to reach out to Kristen directly., [facility], Jacinta 05/03/2024 02:07:05 PM >Kristen called patient is booked with for 09/05/24 @ 8:20 AM if their is a sooner appt they will call her directly. Referral Priority Routine Medications Medication SIG (Take, Route, Frequency, Duration) Notes Start Date End Date Status Emgality Active Cromolyn Sodium 100 MG/5ML Oral for 72 Days Active Naltrexone HCl 50 MG 4.5 mg Orally Once a day Active cloNIDine HCl 0.1 MG TAKE 2 TABLETS BY MOUTH EVERY DAY Orally Once a day for 90 days Active Ondansetron 4 MG 1 tablet on the tongue and allow to dissolve Orally Once a day for 14 days 04/24/2022 Active Antihistamine Active Probiotic Active Carvedilol 3.125 MG TAKE 1 TABLET BY MOUTH TWICE DAILY WITH FOOD for 90 Active Vitamin D Active Magnesium Active Retin-A 0.025 % 1 application in the evening to face Externally Once a day 02/07/2024 Active Dexmethylphenidate HCl 10 MG 1 tablet Or al Once a Day for 30 days 07/31/2024 08/30/2024 Active Vyvanse 40 MG 1 capsule in the morning Orally Once a day for 30 days 07/31/2024 Active FLUoxetine HCl 10 MG TAKE 1 CAPSULE BY MOUTH DAILY for 30 Active Spironolactone 50 MG 1 tablet Orally Onc e a day Active Immunizations Vaccine Route Administration Date Status Comme nts *Td Unknown 05/04/2023 Refused Influenza-Afluria (IIV4) Unknown 01/16/2022 Administere d Social History Alcohol Screen (Audit-C) Question Answer [...] Status W/U Status Risk Notes Problem Rickettsiosis (910482423) Rickettsiosis, unspecified (A79.9) Active confirmed Problem Vitamin D deficiency (62984817) Vitamin D deficiency, unspecified (E55.9) Active confirmed Problem Attention deficit hyperactivity disorder, combined type (30122967) Attention-deficit hyperactivity disorder, combined type (F90.2) Active confirmed Problem Chronic intractable migraine without aura (197789330489335) Chronic migraine without aura, intractable, without status migrainosus (G43.719) Active confirmed Problem Essential hypertension (70827325) Essential (primary) hypertension (I10) Active confirmed Problem Hypermobility syndrome (22496232) Hypermobility syndrome (M35.7) Active confirmed Problem Cervical spine instability (finding) (511456920) Spinal instabilities, cervical region (M53.2X2) Active confirmed Problem Intermenstrual bleeding - irregular (53763541) Excessive and frequent menstruation with irregular cycle (N92.1) Active confirmed Problem 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 (R76.0) Active confirmed Problem Mast cell activation syndrome (disorder) (3465459838816756 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 Problem Premenstrual dysphoric disorder (525943) Premenstrual dysphoric disorder (F32.81) Active confirmed Problem Postural orthostatic tachycardia syndrome (disorder) (903950236) Postural orthostatic tachycardia syndrome [POTS] (G90.A) Active confirmed Problem Refractory migraine with aura (disorder) (708829791) Chronic migraine with aura, intractable, without status migrainosus (G43.E19) Active confirmed Problem Marfan's syndrome (96138728) Marfan syndrome with other cardiovascular manifestations (Q87.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) Active confirmed Vital Signs Heart Rate 96 /min 07/03/2024 Temperature 96.7 degrees Fahrenheit 07/03/2024 Blood pressure diastolic 68 mm Hg 07/03/2024 Oximetry 97 % 07/03/2024 Height 67.5 in 07/03/2024 Blood pressure systolic 122 mm Hg 07/03/2024 Weight 147 lbs 07/03/2024 BMI 22.68 kg/m2 07/03/2024 Procedures Procedure Date Ordered Date Performed Result Body Sit e HOLTER MONITOR, 7 DAYS, INTERPRETATION 09/07/2023 N/A Encounters Encounter Location Date Provider Diagnosis [facility] [address] [id number] 09/07/2023 Silvia Klein Attention-deficit hyperactivity disorder, combined type F90.2 ; Chronic migraine without aura, intractable, without status migrainosus G43.719 ; Hypermobility syndrome M35.7 ; Palpitations R00.2 and Postural orthostatic tachycardia syndrome [POTS] G90.A [facility] [address] [id number] 11/08/2023 Silvai Klein Chloasma L81.1 ; Premenstrual dysphoric disorder F32.81 ; Attention-deficit hyperactivity disorder, combined type F90.2 ; Chronic migraine without aura, intractable, without status migrainosus G43.719 ; Hypermobility syndrome M35.7 and Postural orthostatic tachycardia syndrome [POTS] G90.A [facility] [address] [id number] 01/17/2024 Silvia Klein Chronic migraine without aura, intractable, without status migrainosus G43.719 [facility] [address] [id number] 02/07/2024 Silvia Klein Chloasma L81.1 ; Chronic migraine without aura, intractable, without status migrainosus G43.719 ; Attention-deficit hyperactivity disorder, combined type F90.2 ; Hypermobility syndrome M35.7 and Postural orthostatic tachycardia syndrome [POTS] G90.A [facility] MD [address] [id number] 05/07/2024 Silvia Klein Encounter for genera l adult medical examination without abnormal findings Z00.00 [...] neoplasm of cervix Z12.4 Nicol[facility] MD [address] [id number] 05/24/2024 Silvia Klein Excessive and freque nt menstruation with irregular cycle N92.1 ; Chronic migraine without aura, intractable, without status migrainosus G43.719 ; Postural orthostatic tachycardia syndrome [POTS] G90.A ; Hypermobility syndrome M35.7 and Essential (primary) hypertension I10 [facility] [address] [id number] 07/03/2024 Silvia Klein Chronic migraine wit h aura, intractable, without status migrainosus G43.E19 ; Spinal instabilities, cervical region M53.2X2 ; Other fatigue R53.83 ; Hypermobility syndrome M35.7 ; Essential (primary) hypertension I10 and Chloasma L81.1 [facility] [address] [id number] 09/07/2023 Silvia Ernie Miner MD [address] [id number] 09/13/2023 Silvia Miner MD [address] [id number] 09/14/2023 Silvia Klein Attention-deficit hyperactivity disorder, combined type F90.2 [facility] [address] [id number] 10/05/2023 Silvia Klein Chronic migraine without aura, intractable, without status migrainosus G43.719 Nicol[facility] MD [address] [id number] 10/18/2023 Silvia Klein Chronic migraine without aura, intractable, without status migrainosus G43.719 [facility] [address] [id number] 11/11/2023 Silvia Miner MD [address] [id number] 11/16/2023 Silvia Miner MD [address] [id number] 12/06/2023 Silvia Monzon Miner MD [address] [facility] [address] [place] [address] [id number] 03/28/2024 Silvia Kleinalem Miner MD [address] [place] [address] [id number] 04/04/2024 Silvia Klein [facility] [address] [id number] 05/07/2024 Silvia Klein Nicol[facility] MD [address] [place] [address] [id number] 06/08/2024 Silvia Klein Other fatigue R53.83 Nicolás [facility] MD [address] [id number] 07/04/2024 Silvia Klein [facility] [address] [id number] 08/14/2024 Silvia Klein [facility] [address] [id number] 09/11/2023 Silvia Klein [facility] [address] [id number] 09/11/2023 Silvia Klein [facility] [address] [id number] 09/12/2023 Silvia Klein Attention-deficit hyperactivity disorder, combined type F90.2 [facility] [address] [id number] 09/27/2023 Silvia Klein [facility] [address] [id number] 09/28/2023 Silvia Kleinalem Miner MD [address] [id number] 10/06/2023 Silvia Klein Attention-deficit hyperactivity disorder, combined type F90.2 [facility] [address] [place] [address] [id number] 10/09/2023 [facility] [address] [place] [address] [id number] 10/24/2023 Silvia Klein [facility] [address] [place] [address] [id number] 10/31/2023 Silvia Klein [facility] [address] [place] [address] [id number] 12/01/2023 Silvia Klein Attention-deficit hyperactivity disorder, combined type F90.2 Nicol[facility] [address] [id number] 12/29/2023 Silvia Klein Attention-deficit hyperactivity disorder, combined type F90.2 Nicol[facility] [address] [id number] 01/23/2024 Silvia Klein Chronic migraine without aura, intractable, without status migrainosus G43.719 Nicolás [facility] [address] [id number] 01/30/2024 Silvia Klein Attention-deficit hyperactivity disorder, combined type F90.2 Nicolás [facility] [address] [id number] 02/22/2024 Silvia Klein [facility] [address] [id number] 02/22/2024 Silvia Klein Chronic migraine without aura, intractable, without status migrainosus G43.719 Nicolás [facility] MD [address] [id number] 03/02/2024 Nicolás [facility]er Attention-deficit hyperactivity disorder, combined type F90.2 Nicolás [facility] MD [address] [id number] 03/27/2024 Silvia Klein Attention-deficit hyperactivity disorder, combined type F90.2 Nicol[facility] [address] [id number] 03/29/2024 Silvia Klein [facility] [address] [id number] 04/19/2024 Silvia Klein Attention-deficit hyperactivity disorder, combined type F90.2 Nicol[facility] MD [address] [id number] 05/07/2024 Silvia Klein [facility] [address] [id number] 05/27/2024 Silvia Klein Attention-deficit hyperactivity disorder, combined type F90.2 Nicolás [facility] MD [address] [id number] 06/25/2024 Nicolás [facility] Attention-deficit hyperactivity disorder, combined type F90.2 Nicolás [facility] MD [address] [id number] 07/23/2024 Silvia Kleinalem Miner MD [address] [id number] 07/31/2024 Silvia Klein Attention-deficit hyperactivity disorder, combined type F90.2 Nicolás Miner MD [address] [id number] 07/31/2024 Silvia Klein Assessments Encounter Date Diagnosis (ICD Code) Assessment Notes Treatment Notes Treatment Clinical Notes Section Notes 09/07/2023 Attention-deficit hyperactivity disorder, combined type (ICD-10 [...] suspicious for melasma. Pt is followed by [facility], and she would like to continue working with this provider for continued management of her skin concerns. 12/01/2023 Attention-deficit hyperactivity disorder, combined type (ICD-10 - F90.2) last filled: 11/09/23 01/17/2024 Chronic migraine without aura, intractable, without [...] provider as well as her neurologist and [employer]. Patient has seen improvement in the severity and frequency of her headaches/migraines since adding Emgality to her regimen. Plan will be for follow up in 3 months to reassess symptoms and review headache/migraine journal 02/07/2024 Chloasma (ICD-10 - L81.1) Pt is followed by [facility] for treatment of Melasma, and she would like to continue working with this provider for continued management of her skin concerns. 03/02/2024 Attention-deficit hyperactivity disorder, combined type (ICD-10 - F90.2) 03/27/2024 Attention-deficit hyperactivity disorder, combined type (ICD-10 - F90.2) 04/19/2024 Attention-deficit hyperactivity disorder, combined type (ICD-10 - F90.2) 11/08/2023 Premenstrual dysphoric disorder (ICD-10 - F32.81) [...] follow-up to reassess symptoms since starting Prozac 05/07/2024 Chronic migraine without aura, intractable, without status migrainosus (ICD-10 - G43.719) Patient to continue tracking her migraines and to remain on her medications as prescribed by her functional medicine provider as well as 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 Patient has seen improvement [...] hyperactivity disorder, combined type (ICD-10 - F90.2) 06/25/2024 Attention-deficit hyperactivity disorder, combined type (ICD-10 - F90.2) 07/03/2024 Spinal instabilities, cervical region (ICD-10 - M53.2X2) See plan above.I suspect that patient's persistent headache and migraine symptoms that are occurring more days of the week than not is related to cervical instability causing cervicogenic headaches. Discussed with patient obtaining further imaging as patient describes her headaches as radiating pain that starts in her neck and goes up the back of her head into her forehead. Patient agreeable to move forward with imaging at this time. 07/03/2024 Chronic migraine with aura, intractable, without status migrainosus (ICD-10 - G43.E19) Reviewed with kalyani marshall her persistent headache and migraine days despite her Emgality, LDN, propranolol, and Botox treatments. Patient is tearful during today's visit as she states that nothing seems to be relieving the discomfort that she is feeling. Did discuss in length that cervicogenic headaches and cervical instability may be the underlying cause for her persistent headaches. Would like to obtain a brain MRI given her persistent headaches despite multiple medication treatments. Patient agreeable to move forward with this image. Would like patient to remain on current medication regimen until further imaging is completed and we will plan for follow-up in 1 month to further manage patient's headaches/migraines 07/31/2024 Attention-deficit hyperactivity disorder, combined type (ICD-10 - F90.2) 06/08/2024 Other fatigue (ICD-10 - R53.83) 02/22/2024 Chronic migraine without aura, intractable, without status migrainosus (ICD-10 - G43.719) 12/29/2023 Attention-deficit hyperactivity disorder, combined type (ICD-10 - F90.2) 07/03/2024 Other fatigue (ICD-10 - R53.83) Patient shares much concerns of increased fatigue symptoms despite sleeping for good overnight. Will obtain lab work for further evaluation. Patient's mother does have Cornelius's and discussed with patient that her thyroid labs have been normal in the past but will further evaluate as patient is no longer being seen by functional medicine and obtaining this lab work 05/24/2024 Chronic migraine without aura, intractable, without status migrainosus (ICD-10 - G43.719) Patient with longstanding history of chronic migraines. Patient to continue tracking her migraines and remain on her current medication regimen as she feels as though this combination has helped improve her headache and migraine severity and frequency but has not resolved her symptoms. 05/07/2024 Attention-deficit hyperactivity disorder, combined type (ICD-10 [...] readings despite taking these treatments for ADHD 02/07/2024 Attention-deficit hyperactivity disorder, combined type (ICD-10 - F90.2) Stable and patient has seen great improvement in her concentration and focus with Vyvanse. Patient also continues to take her short-acting Dexmethylphenidate in the middle of the day as needed for breakthrough focus and concentration issues. 09/07/2023 Chronic migraine without aura, intractable, without [...] exam of hypermobility Patient is followed by [facility] and his pending review [...] concentration issues. 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 Raza for further evaluation for underlying POTS given increased heart rate episodes and palpitations in September. 05/24/2024 Postural orthostatic tachycardia syndrome [POTS] (ICD-10 - G90.A) Patient is pending a n apt with Dr. 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 Discussed that her headaches could be stemming from cervical instability due to H-EDS. Encouraged pt to continue with EDS based PT at home to help strengthen the muscles in her shoulders/back to help manage any potential worsening headache symptoms stemming for her neck. 07/03/2024 Hypermobility syndrome (ICD-10 - M35.7) Patient is followed by [facility] for concerns of H-EDS with mass cell and potential POTS (pending a tilt table test in the coming months). Discussed that her headaches could be stemming from cervical instability due to H-EDS. Encouraged pt to continue with EDS based PT at home to help strengthen the muscles in her shoulders/back to help manage any potential worsening headache symptoms stemming for her neck. Also encouraged pt to trial acupuncture to see if this can further assist in pain/symptom management 05/07/2024 Hypermobility syndrome (ICD-10 - M35.7) Patient is followed by [facility] and genetics for concerns of [...] provider as well as her neurologist and [facility] [employer]. Patient to contact the office once she [...] given increased heart rate episodes and palpitations. 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 Did discuss proper use of home blood [...] any new or worsening symptoms of concern 07/03/2024 Essential (primary) hypertension (ICD-10 - I10) Reviewed with kalyani marshall her blood pressure which was normal during today's visit. Patient to continue taking her blood pressure occasionally at home to ensure continued normal blood pressure readings 07/03/2024 Chloasma (ICD-10 - L81.1) Patient continues to take spironolactone for underlying melasma treatment. Discussed with patient her concerns of using spironolactone long-term and plan will be for patient to decrease to 50 mg. If skin changes do not occur with lowering this dose, could consider stopping this treatment all together at next follow up. Patient is followed by [facility] and states that she will discuss this with dermatology as well 05/07/2024 Premenstrual dysphoric disorder (ICD-10 - F32.81) [...] he r Pap smear in 2021 through [facility]. Patient is aware she is due for [...] HOLTER MONITOR, 7 DAYS, INTERPRETATION 0 09/07/2023 Cortisol-[id number] 06/08/2024 Thyroid Peroxidase (TPO) [id number] 07/03 Thyroglobulin Antibody-[id number] 07/03/2024 Catecholamines, Plasma-[id number] 07/03/2024 TSH reflex to [id number] 07/03/2024 Next Appt Details Provider Name:Silvia R Ernie , 08/27/2024 08:00:00 AM, [address] [place] [address], [phone], Provider Name:Silvia Grover Klein , 05/16/2025 09:00:00 AM, [address] [place] [address], [phone], Insurance Providers Payer Name Payer Address Payer Phone Subscriber Number Group Number Insured Name Patient Relationship to Insured Coverage Start Date Coverage End Date [facility] [address] [place] [address] [id number] Elvira Guido Self - patient is the insured Medical (General) History Medical History History ICD Code ADHD Migraines (since childhood) Elevated TPO antibody Genetic testing through [employer] - revealed potential BRCA 2 gene Surgical History Surgery Date(Month/Year) Appendix 2013 Hospitalization History Reason Date(Month/Year) Appendix 2013
--- NOTE | 2024-08-22 08:13 | MHC.OFFVIS ---
Vital Signs 08/22/24 08:14 Height 5 ft 7 in Weight 148 lb 6 oz BMI 23.2 BP 120/68 Blood Pressure Location Lt brachial Position Sitting Pulse 70 Pulse Source Pulse Oximeter Pulse Oximetry (%) 98 Oxygen Delivery Method Room Air Intake Visit Reasons: Follow Up 6mo Intake Note: Patient presents 6 month follow up for migraines. migraines under control with medication/Botox Accompanied by: Self / Same As Patient Allergies amoxicillin Allergy (Unknown, Verified 08/22/24 08:16) Unknown Penicillins Allergy (Unknown, Verified 08/22/24 08:16) Unknown sulfamethoxazole (From Bactrim) Allergy (Unknown, Verified 08/22/24 08:16) Hives trimethoprim (From Bactrim) Allergy (Unknown, Verified 08/22/24 08:16) Hives Medication List - Last Reconciled 08/22/24 by SOFIA Sandhu cetirizine (Zyrtec) 10 mg PO DAILY PRN cholecalciferol (vitamin D3) 125 mcg PO DAILY clonidine HCl 0.2 mg PO DAILY dexmethylphenidate 10 mg PO famotidine 40 mg PO BID PRN galcanezumab-gnlm (Emgality Pen) mg subcut lisdexamfetamine (Vyvanse) 30 mg PO DAILY magnesium tabs PO DAILY naltrexone mg PO DAILY onabotulinumtoxinA (Botox) 200 units IM ONCE 12 weeks propranolol 10 mg PO BID 90 days riboflavin (vitamin B2) 400 mg (4 x 100 mg) PO DAILY 30 days spironolactone 100 mg PO QAM [spore basedv probiotic PO DAILY] tretinoin 0.05% 1 appl topical BEDTIME HPI Comments Details: 29-yr-old female presents for f/u visit of chronic migraine. Pt denies any significant interval medical changes. Pt previously had f/u w/ [facility]- was dx'd w/ hypermobile EDS. And raised concern for comorbid POTs. Her PCP office has referred her for tilt-table testing, however she has not received an appointment yet. Recent normal echocardiogram as part of EDs work-up. Has history of chronic positive ZHEN. Pt reports she feels the combination of botox and emgality is helpful, but the effect starts to wear off towards the end of the injection cycle. However, she no longer now has a constant headache. She can now identify the onset of a migraine better. She continues to use OTC analgesics, is prone to waiting to take these until the migraine is more severe. She still has not tried the sumatriptan, as she is worried about the risk for side effect, specifically the possible cardiac or paresthesia type symptoms. She continues to have neck tightness and can be prone to discomfort. She is trying to exercise, but be more mindful about posture, form and weight training limits. She is also trying to be mindful of her posture at work- she is often on a computer or desk. Her PCP recently ordered an updated brain MRI and C-spine MRI. 08/01/2024, brain MRI with and without contrast, was read as unremarkable. 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 Recent c-spine 08/01/2024, C-spine MRI without contrast: 1. Straightening of the usual cervical lordosis. 2. Minimal disc bulges at C2-C3, C3-C4 and C4-C5. 3. Small focal central disc protrusion of C5-C6 minimally narrows the spinal canal. [facility] Medical History IBS (irritable bowel syndrome) GERD (gastroesophageal reflux disease) Positive ZHEN (antinuclear antibody) ADHD (attention deficit hyperactivity disorder) Surgical History Hx of appendectomy Family History Father Hypertension Mother Hypertension Cornelius's thyroiditis Maternal Grandmother Migraines Social History Alcohol intake: current Alcohol intake frequency: a few times a month Patient Tobacco Use Status: Never used Tobacco Substance Use Type: Marijuana Physical Exam Vital Signs: Last Vital Signs Pulse 70 08/22/24 08:14 BP 120/68 08/22/24 08:14 Pulse Ox 98 08/22/24 08:14 Oxygen Delivery Method Room Air 08/22/24 08:14 BMI result Body Mass Index 23.2 Const General: cooperative and no acute distress Orientation/consciousness: patient oriented x3 Resp Effort & Inspection: normal respiratory effort and able to speak in complete sentences Neuro General: patient oriented x3 Cranial nerves: Yes CN's II-XII intact bilaterally Cognition (Neuro): normal cognition Psych Appearance: grossly normal Mental Status: mental status grossly normal Speech and movement: Normal speech and movement present Affect: normal affect Attitude: cooperative Assessment & Plan Assessment & Plan (1) Chronic migraine without aura: Code(s): G43.709 - Chronic migraine without aura, not intractable, without status migrainosus Category: Medical Qualifiers: Intractability: intractable Status migrainosus presence: without status migrainosus Qualified Code(s): G43.719 - Chronic migraine without aura, intractable, without status migrainosus (2) Cold hands and feet: Comment: Improved Code(s): R20.9 - Unspecified disturbances of skin sensation Category: Medical (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 ? For overall headache management: Continue to optimize good self-care, including but not limited to maintaining a healthy diet, adequate fluid intake, adequate sleep, and engaging in regular physical activity. Track headaches. For pots and hypermobile EDS: Tilt-table test per PCP Continue paced physical activity. Concur with upcoming PT eval and treat with a hypermobility specialist ? For acute headache treatment: May use OTC Tylenol, Ibuprofen, or Naproxen prn. Trial Sumatriptan 100mg tab. Propranolol 10mg IR qd prn. Patient may benefit from trying a as needed neuromodulation device such as, an eTENs or RENs device. Previous acute migraine medication trials: None Acute migraine medication contraindications: None at this time Future consideration: gepant. ? For chronic migraine prevention medication: Continue Riboflavin 400mg qam Continue OTC Magnesium 400-500mg qhs Continue Propranolol 10mg IR q.h.s. She may continue Emgality 120 mg subcu q.month, as patient has had a significant reduction in her migraine burden w/ decrease intensity of migraine, decreased severity of associated migraine symptoms, now has a few headache-free days per month- since taking Emgality combined with Botox. Continue Botox inj q 3 months- as pt is having good clinical effect and helping cervical tightness and TMJ s/s as well. Advise patient to discuss post Botox masseter weakness with Dr. Solares, she may benefit from a slight reduction in in each masseter Botox injection dose. Previous migraine prevention medication trials: Nortriptyline not tolerated. Botox for lina TMJ- was helpful. Propranolol 60 mg ER- not tolerated- caused excessive sleepiness. Veraapiml ER 100mg qhs- not tolerated-caused fatigue Migraine prevention medication contraindications: Aimovig due to possibility of Raynaud's. ? ? Pt to follow-up for Botox as scheduled and in 4-6 months w/ [facility] or sooner prn. 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
[2024-08-22 08:14] VITALS: BP 120/68; PULSE 70; O2SAT 98; BMI 23.2
== END 2024-08-22 09:17 | disposition home or self-care (01) ==
LOC: HO.HSMS 08:00
PROVIDERS: PCP Nurse Practitioner Family; Visit Provider Nurse Practitioner Family
DX: G43.719 Chronic migraine without aura, intractable, without status migrainosus (principal); R20.9 Unspecified disturbances of skin sensation; Q79.62 Hypermobile Ehlers-Danlos syndrome; R42 Dizziness and giddiness
CPT/HCPCS: 99214

== ENCOUNTER → 2024-08-22 07:59 | Outpatient (BNVA) | payer OTHER, SELFPAY | PROVIDERS: PCP Nurse Practitioner Family; Visit Provider Nurse Practitioner Family ==

== ENCOUNTER 2024-10-02 07:41 | Outpatient (AMB) | payer OTHER, SELFPAY ==
--- OUTSIDE RECORDS SUMMARY | 2024-10-02 07:44 | XMS_ITS ---
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
--- OUTSIDE RECORDS SUMMARY | 2024-10-02 07:44 | XMS_ITS | Encounter Summary ---
Author Organization [facility] Address [address] [place] [phone] Care Team Providers Care Director Corporate Sales Name Role Phone Unavailable Primary Care Provider Unavailabl e Encounter Details Date Type Department Care Team (Late st Contact Info) Description 11/22/2023 Scanned Document [facility] [address] [place] [address] [phone] Provider, Historical . Social History Tobacco Use [...]
--- OUTSIDE RECORDS SUMMARY | 2024-10-02 07:44 | XMS_ITS | Clinical Summary ---
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 AGENT [address] [place] [address] Geneva Shi, PT [address] [place] [address] 10/30/2024 5:00 PM EDT Treatment [address] [phone] System, Provider Not In Geneva Shi, PT [address] [place] [address] 11/13/2024 5:00 PM EDT Treatment [address] [phone] System, Provider Not In Geneva Shi, PT [address] [place] [address] 11/20/2024 5:00 PM EDT Treatment [address] [place] [address] System, Provider Not In Geneva Shi, PT [address] [place] [address] 11/27/2024 5:00 PM EDT Treatment [address] [place] [address] System, Provider Not In Geneva Shi, PT [address] [place] [address] 12/04/2024 5:00 PM EDT Treatment [address] [place] [address] System, Provider Not In Geneva Shi, PT [address] [place] [address] 12/11/2024 5:00 PM EDT Treatment [address] [place] [address] System, Provider Not In Geneva Shi, PT [address] [place] [address] 12/18/2024 5:00 PM EDT Treatment [address] [place] [address] System, Provider Not In Geneva Shi, PT [address] [place] [address] 12/25/2024 5:00 PM EDT Treatment [address] [place] [address] System, Provider Not In Geneva Shi, PT [address] [place] [address] Health Maintenance Due Date Last Done Comments Hepatitis C Virus Screening 1996 HIV Screening 2009 DTaP/Tdap/Td Vaccines (1 - Tdap) 2015 Hepatitis B Vaccines (1 of 3 - 19+ 3-dose series) 2015 Pap Smear (Ages 21-65) 2017 COVID-19 Vaccine (2023-2 5 season) 2023 Influenza Vaccine 10/05/2024 HPV Vaccines Aged Out No longer eligi ble based on patient's age to complete this topic Pneumococcal Vaccine: Pediat dorothy (0-5 Years) and At-Risk Patients (6 to 49 Years) Aged Out No longer eligible b ased on patient's age to complete this topic [place] [address] [place] [address] HEALTH Care Teams Assignment Desk Assistant Relationship Specialty Start Date End Date Silvia Klein MD [address] [place] [id number] PCP - General General Medicine 03/12/24
--- OUTSIDE RECORDS SUMMARY | 2024-10-02 07:44 | XMS_ITS | Clinical Summary ---
Author Organization [facility] Address [address] [facility] [place] [address] Phone Care Team Providers Care Designer/Writer Name Role Phone Nicolás Miner MD Primary Care Provider [phone] Allergies Active Allergy Reactions Criticality Noted Date Comments Amoxicillin Hives 09/05/2024 Sulfamethoxazole-Trimethoprim Hives 2024 Penicillin V Hives 09/05/2024 Medications lisdexamfetamin e (VYVANSE) 40 mg capsule Take 1 capsule (40 mg total) by mouth 1 (one) time each day in the morning. Max Daily Amount: 40 mg Active buPROPion XL (WELLBUTRIN XL) 150 mg 24 hr tablet Take 1 tablet (150 mg total) by mouth 1 (one) time each day. Do not crush, chew, or split. Active propranoloL (INDERAL) 10 mg tablet Take 1 tablet (10 mg total) by mouth 2 (two) times a day. Active cloNIDine (CATAPRES) 0.1 mg tablet Take 2 tablets (0.2 mg total) by mouth at bedtime. Active methylphenidate (RITALIN) 10 mg tablet 1 tablet (10 mg total) if needed. Active galcanezumab-gn lm (Emgality Syringe) 120 mg/mL syringe Inject 1 mL (120 mg total) under the skin every 28 (twenty-eigh t) days. Active spironolactone (ALDACTONE) 50 mg tablet Take 1 tablet (50 mg total) by mouth 1 (one) time each day. Active cromolyn (GASTROCROM) 100 mg/5 mL solution 3 vial twice daily 08/02/2024 Active MAGNESIUM GLYCINATE ORAL Take 1 tablet by mouth 1 (one) time each day. Active Active Problems Problem Noted Date Diagnosed Date Chronic migraine without aur a, intractable, without status migrainosus 09/03/2024 Postural orthostatic tachycardia syndrome 2024 Assessment & Plan (09/05/2024 9:03 AM EDT): It is not quite clear that this patient actually has POTS. She has lightheadedness and dizziness with position change she does have some palpitations. She does have difficulty standing in line for long periods of time. She looks exhausted. She states that she is not sleeping at night the way we going to work this up is 1. Tilt table test. If that is negative 2. 30-day telemetry monitoring. If that is negative 3. Sleep study Orders: ECG 12 lead Tilt table; Future Palpitations 09/03/2024 Encounters Date Type Department Care Team Description 09/24/[address] [facility] Cardiology [facility] [address] [facility] [address] [place] [address] Aristides Raza MD Appointment (Tilt Table) 09/05/2024 8:20 AM EDT Office Visit [facility] [address] [place] [address] Aristides Raza MD Postural orthostatic tachycardia syndrome (Primary Dx) from Last 3 Months Medical History Medical History Date Comments Adhd Hypermobility syndrome Chloasma Social History Tobacco Use Types Packs/Day Years Used Date Smoking Tobacco: Never Passive Smoke Exposure: Never Tobacco Cessation:Counseling Given: Not Answered Alcohol Use Standard Drinks/Week Comments Not Asked 0 (1 standard drink = 0.6 oz pur e alcohol) NO Comments Unknown Sex and Gender Information Value Date Recorded Sex Assigned at Not on file Legal Sex Female 7:57 PM EST Gender Identity Not on file Sexual Orientation Not on file Obstetrics History Last Filed Vital Signs Vital Sign Reading Time Taken Comments Blood Pressure 118/70 09/05/2024 9:38 AM EDT Pulse 67 09/05/2024 8:17 AM EDT Temperature - - Respiratory Rate - - Oxygen Saturation 97% 09/05/2024 8:17 AM EDT Inhaled Oxygen Concentration - - Weight 67.6 kg (149 lb) 09/05/2024 8:17 AM EDT Height 170.2 cm (5' 7 ) 09/05/2024 8:17 AM EDT Body Mass Index 23.34 09/05/2024 8:17 AM EDT Plan of Treatment Upcoming Encounters Date Type Department Care Team (Late st Contact Info) Description 11/19/2024 10:50 AM EDT Office Visit [facility] [address] [facility] [address] [place] [phone] Aristides Raza MD [address] [place] [address] [address] [place] [address] 12/11/2024 1:[address] [facility] [address] [place] [phone] Health Maintenance Due Date Last Done Comments Hepatitis A Vaccines (2 of 2 - 2-dose series) 09/22/2011 03/24/2011 Hepatitis B Vaccines (1 of 3 - 19+ 3-dose series) 2015 Cervical Cancer Screening: Pap Smear 2017 HIV Screening 02/06/2022 Hepatitis C Screening 02/06/2022 Social Influencers of Health Screening 02/06/2022 COVID-19 Vaccine ( season) 2023 04/10/2021, 07/16/2020, 06/18/2020 Depression Screening 03/07/2024 Influenza Vaccine (#1) 2024 3, 12/20/2020, 01/06/2020, Additional history exists DTaP,Tdap,and Td Vaccines (2 - Td or Tdap) 12/01/2026 12/01/2016 Meningococcal ACWY Vaccine Completed 08/14/2014 HIB Vaccines Aged Out No longer eligi [...] age to complete this topic Pneumococcal Vaccine: Pediatrics (0 to 5 Years) and At-Risk Patients (6 to 49 Years) Aged Out No longer eligible based on patient's age to complete this topic RSV Immunization Patients Under 20 months Aged Out No longer eligible based on patient's age to complete this topic Varicella Vaccines Aged Out No longer eligible based on patient's age to complete this topic Procedures Procedure Name Priority Date/Time Associated Diagnosis Comments ECG 12-LEAD Routine 09/05/2024 8:29 AM EDT Postural orthostatic tachycardia syndrome from Last 3 Months Results * ECG 12 lead (09/05/2024 8:29 AM EDT) Ventricular Rate ECG 61 BPM GEMUSE Atrial Rate 61 BPM GEMUSE P-R Interval 134 ms GEMUSE QRS Duration 84 ms GEMUSE Q-T Interval 422 ms GEMUSE QTc 424 ms GEMUSE P Wave [place] 34 degrees GEMUSE R [place] 87 degrees GEMUSE T [place] 83 degrees GEMUSE ECG Interpretation Normal sinus rhythm Normal ECG No previous ECGs available Confirmed by Stefanie RAZA, ARISTIDES ([id number]) on 09/05/2024 12:09:53 PM GEMUSE 09/05/2024 8:29 AM EDT 09/05/2024 12:09 PM EDT us Aristides Raza MD ECG ORDERABLES Final Result GEMUSE from Last 3 Months Insurance [place] [address] Care Teams Designer/Writer Relationship Specialty Start Date End Date Nicolás Miner MD [address] [place] [phone] PCP - General Internal Medicine 09/05/24
--- OUTSIDE RECORDS SUMMARY | 2024-10-02 07:44 | XMS_ITS | Patient Health Record ---
Author Organization Nicolás Miner MD Address [address] [place] [address] [id number] Care Team Providers Care Cans Vacuum Tester Name Role Phone Silvia Klein Primary Care Provider [phone] Nicolás Miner Unavailable [phone] Allergies Allergen (clinical drug ingredient) Drug/Non Drug Allergy documented on EMR Reaction Allergy Type Onset Date Status sulfamethoxazole / trimethoprim Bactrim Unknown Drug Allergy Active Penicillin Unknown Drug Allergy Active Results Component Value Reference Range Notes Testosterone-[id number] Reviewed date:06/08/2024 01:02:11 PM Interpretation: Performing Lab:[facility], [address] [facility], Phone - [phone], Director Mk Mariscal Notes/Report: Testosterone 18 13-71 ng/dL Luteinizing Hormone(LH)-0042 83 Reviewed date:06/08/2024 01:02:11 PM Interpretation: Performing Lab:[facility], [address] [facility], [place], Phone - [phone], Director Mk Mariscal Notes/Report: LH 9.6 Adult Female Range Follicular phase 2.4 - 12.6 Ovulation phase 14.0 - 95.6 Luteal phase 1.0 - 11.4 Postmenopausal 7.7 - 58.5 FSH-310509 Reviewed date:06/08/2024 01:02:11 PM Interpretation: Performing Lab:[facility], [address] [facility], [place], Phone - [phone], Director Mk Mariscal Notes/Report: FSH 9.2 Adult Female Range Follicular phase 3.5 - 12.5 Ovulation phase 4.7 - 21.5 Luteal phase 1.7 - 7.7 Postmenopausal 25.8 - 134.8 Progesterone-186914 Reviewed date:06/08/2024 01:02:12 PM Interpretation: Performing Lab:[facility] [address] [place] [address], Phone - [phone], Director - Davey Notes/Report: Progesterone 0.2 Follicular phase 0.1 - 0.9 Luteal phase 1.8 - 23.9 Ovulation phase 0.1 - 12.0 First trimester 11.0 - 44.3 Second trimester 25.4 - 83.3 Third trimester 58.7 - 214.0 Postmenopausal 0.0 - 0.1 ACTH, Plasma-635328 Reviewed date:06/08/2024 01:02:12 PM Interpretation: Performing Lab:[facility] [address] [place] [address], Phone - [phone], Director - Davey Notes/Report: ACTH, Plasma 14.5 7.2-63.3 pg/mL ACTH referenc e interval for samples collected between 7 and 10 AM. Prolactin-352308 Reviewed date:06/08/2024 01:02:12 PM Interpretation: Performing Lab:[facility] [address] [place] [address], Phone - [phone], Director - Davey Notes/Report: Prolactin 15.2 4.8-33.4 ng/mL Estrogens, Total-061552 Reviewed date:06/08/2024 01:02:12 PM Interpretation: Performing Lab:[facility] [address] [place] [address], Phone - [phone], Director - Davey Notes/Report: Estrogens, Total 116 Prepubertal < 40 Female Cycle: 1-10 Days 16 - 328 11-20 Days 34 - 501 21-30 Days 48 - 350 Post-Menopausal 40 - 244 UA/M w/rflx Culture, Routine -[id number] Reviewed date:06/08/2024 01:02:12 PM Interpretation: Performing Lab:[facility] [address] [place] [address], Phone - [phone], Director - Davey Notes/Report: Specific Jackson 1.012 1.005-1.030 pH 5.5 5.0-7.5 Urine-Color Yellow [...] Routine Final report Result 1 No growth Thyroid Peroxidase (TPO) Ab- 734005 Reviewed date:09/05/2024 08:57:43 PM Interpretation: Performing Lab:[facility], [address] [place] [address], Phone - [phone], Director - [facility] Notes/Report: Test(s) 615001-Jbwsysjimoqjwj; 222861-Pijosngqtbs; 781189-Rvhtwffe was developed and its performance characteristics determined by [facility]. It has not been cleared or approved by the Food and Drug Administration. Thyroid Peroxidase (TPO) Ab <9 0-34 IU/mL Thyroglobulin Antibody-90770 5 Reviewed date:09/05/2024 08:57:43 PM Interpretation: Performing Lab:[facility], [address] [place] [address], Phone - [phone], Director - [facility] Notes/Report: Test(s) 609100-Cofqimlprdnssm; 392804-Zklxrarzdjq; 387678-Alfygvqy was developed and its performance characteristics determined by [facility]. It has not been cleared or approved by the Food and Drug Administration. Thyroglobulin Antibody 2.1 0.0-0.9 IU/mL Thyroglobulin Antibody measured by [facility] [employer] . It should be noted that the presence of thyroglobulin antibodies may not be pathogenic nor diagnostic, especially at very low levels. The assay ladle repairman has found that four percent of individuals without evidence of thyroid disease or autoimmunity will have positive TgAb levels up to 4 IU/mL. TSH reflex to F6I-[id number] Reviewed date:09/05/2024 08:57:43 PM Interpretation: Performing [facility], [address] [place] [address], Phone - [phone], Director - [facility] Notes/Report: Test(s) 588342-Gjbjurcmahutlo; 326970-Kcqliovajzn; 142632-Vsqtvzto was developed and its performance characteristics determined by [facility]. It has not been cleared or approved by the Food and Drug Administration. TSH 1.080 0.450-4.500 uIU/mL MR Brain Reviewed date:08/21/2024 11:19:35 AM Interpretation: [...] M.D. Reviewed and Electronically Signed by: Romulo Moy M.D. Anti-Mullerian Hormone (AMH) -340611 Reviewed date:06/08/2024 01:02:12 PM Interpretation: Performing Lab:[facility], [address] [place] [address], [place], Phone - [phone], Director - Davey Notes/Report: Anti-Mullerian Hormone (AMH) 1.97 For assays employing antibodies, the possibility exists for interference by heterophile antibodies in the samples.1 1.Morgan Laughlin. Interferences in Immunoassays - still a threat. Clin. Chem. 2000; 46: 5554-7967. This test was developed and its performance characteristics determined by [employer]. It has not been cleared or approved by the Food and Drug Administration. Reference Range: Females 26 - 30y: 1.03 - 11.10 Median 4.20 AMH concentrations of >= 1.06 ng/mL is correlated with a better response to ovarian stimulation, produced more retrievable oocytes and higher odds of live according to Christine et al. Fertility and Sterility. 2010: 94:7414-2320. The current AMH test method correlates with [...] diagnose or exclude an AMH-secreting ovarian tumor. Cortisol-012656 Reviewed date:06/08/2024 01:02:11 PM Interpretation: Performing Lab:[facility] [place], [address] [place] [address], Phone - [phone], Director - Davey Notes/Report: Cortisol 7.1 6.2-19.4 ug/dL Please Note: The reference interval and flagging for this test is for an AM collection. If this is a PM collection please use: Cortisol PM: 2.3-11.9 Catecholamines, Plasma-25199 2 Reviewed date:09/05/2024 08:57:43 PM Interpretation: Performing Lab:[facility], [address] [place] [address], Phone - [phone], Director - Hanh Notes/Report: Test(s) 963621-Eesyogigqlznau; 816244-Lrhfojvjexq; 976407-Vvxgmoqt was developed and its performance characteristics determined by [facility]. It has not been cleared or approved by the Food and Drug Administration. Norepinephrine 246 115-524 pg/mL Epinephrine 42.1 0.0-55.4 pg/mL Dopamine <10.0 0.0-36.7 pg/mL Catecholamines, Plasma reference intervals based on patient in supine position for at least 20 minutes. Cortisol-843024 Reviewed date:09/05/2024 08:57:43 PM Interpretation: Performing Lab:[facility], [address] [place] [address], Phone - [phone], Director - Hanh Notes/Report: Test(s) 975952-Caphurwohbzoll; 803627-Llmuclyzlvf; 131888-Rygszuve was developed and its performance characteristics determined by [facility]. It has not been cleared or approved by the Food and Drug Administration. Cortisol 7.8 6.2-19.4 ug/dL Please Note: The reference interval and flagging for this test is for an AM collection. If this is a PM collection please use: Cortisol PM: 2.3-11.9 Iron and TIBC-822766 Reviewed date:06/08/2024 01:02:12 PM Interpretation: Performing Lab:[facility], Phone - [phone], Director - [facility] Notes/Report: Iron Bind.Cap.(TIBC) 346 250-450 ug/dL UIBC 219 131-425 ug/dL Iron 127 27-159 ug/dL Iron Saturation 37 15-55 % Magnesium-714284 Reviewed date:06/08/2024 01:02:12 PM Interpretation: Performing Lab:[facility] [address], Phone - [phone], Director - [facility] Notes/Report: Magnesium 1.8 1.6-2.3 mg/dL Urinalysis, Complete-287355 Reviewed date:06/08/2024 01:02:12 PM Interpretation: Performing Lab:[facility], Phone - [phone], Director - [facility] Notes/Report: Specific Jackson 1.023 1.005-1.030 pH 6.5 5.0-7.5 Urine-Color Yellow [...] None seen /lpf Bacteria Many None seen/Few Ferritin-728071 Reviewed date:06/08/2024 01:02:12 PM Interpretation: Performing Lab:[facility], Phone - [phone], Director - MAPamelay Notes/Report: Ferritin 36 15-150 ng/mL CBC With Differential/Platel et-484416 Reviewed date:06/08/2024 01:02:12 PM Interpretation: Performing Lab:[facility] [address], Phone - [phone], Director - MASilvano Notes/Report: WBC 4.9 3.4-10.8 x10E3/uL RBC 4.21 [...] Grans (Abs) 0.0 0.0-0.1 x10E3/uL Vitamin D, 25-Gwckgsx-089962 Reviewed date:06/08/2024 01:02:12 PM Interpretation: Performing Lab:[facility], [address] [place] [address], [place], Phone - [phone], Director - Davey Notes/Report: Vitamin D, 25-Hydroxy 37.5 30.0-100.0 ng/mL Vitamin D deficiency has been defined by the [place] of [employer] and an Endocrine Society practice guideline as a level of serum 25-OH vitamin D less than 20 ng/mL (1,2). The Endocrine Society went on to further define vitamin D insufficiency as a level between 21 and 29 ng/mL (2). 1. IOM ([place] of [employer]). 2010. Dietary reference intakes for calcium and D. [place]: The National Academies Press. 2. Abraham MF, Malu LEES, Windy SIDDIQUI, et al. Evaluation, treatment, and prevention of vitamin D deficiency: an Endocrine Society clinical practice guideline. JCEM. 2010; 96(7):1911-30. Albumin/Creatinine Ratio,[facility] ne-034176 Reviewed date:06/08/2024 01:02:12 PM Interpretation: Performing Lab:[facility], [address] [place] [address], Phone - [phone], Director - MDJodry Notes/Report: Creatinine, Urine 247.5 Not Estab. mg/dL Albumin, Urine 35.9 Not Estab. ug/mL Alb/Creat Ratio 15 0-29 mg/g creat Normal: 0 - 29 Moderately increased: 30 - 300 Severely increased: >300 HCV Antibody RFX to Quant PC R-[id number] Reviewed date:06/08/2024 01:02:12 PM Interpretation: Performing Lab:[facility], [address] [place] [address], Phone - [phone], Director - MDJoy Notes/Report: HCV Ab Non Reactive Non Reactive Interpretation: Not infected with HCV unless early or acute infection is suspected (which may be delayed in an immunocompromised individual), or other evidence exists to indicate HCV infection. Comp. Metabolic Panel (14)-3 00429 Reviewed date:06/08/2024 01:02:12 PM Interpretation: Performing Lab:[facility], [address] [place] [address], Phone - [phone], Director - MDJodry Notes/Report: Glucose 87 70-99 [...] IU/L ALT (SGPT) 23 0-32 IU/L LP+Non-HDL Cholesterol-94200 5 Reviewed date:06/08/2024 01:02:13 PM Interpretation: Performing Lab:[facility], [address] [place] [address], Phone - [phone], Director - Davey Notes/Report: Cholesterol, Total 156 100-199 mg/dL Triglycerides 48 0-149 mg/dL HDL Cholesterol 58 >39 mg/dL VLDL Cholesterol Amando 10 5-40 mg/dL LDL Chol Calc ([facility]) 88 0-99 mg/dL Non-HDL Cholesterol 98 0-129 mg/dL Reason For Referral Reason lordosis of cervical spine and neck pain Faxed Diagnosis 1 Cervicalgia (M54.2) Referral Organization Nicolás WEBER Referring Provider First Name Silvia Referring Provider Last Name Klein Referring Provider Speciality Nurse Arabella maciel Referred Provider Sanjana Balderas Referred Provider Specialty Pain Medicin e General Notes [facility] 02[facility]28[facility]06 PM > faxed Referral Priority Routine Medications Medication SIG (Take, Route, Frequency, Duration) Notes Start Date End Date Status Magnesium Active Emgality 120 MG/ML INJECT 1ML SUBCUTANEOUS ONCE A MONTH; Duration: 28 Active Vitamin D Active Retin-A 0.025 % 1 application in the evening to face Externally Once a day 02/07/2024 Active Propranolol HCl 10 MG TAKE 1 TABLET BY M OUTH TWICE DAILY IN THE MORNING AND IN THE AFTERNOON Oral; Duration: 90 Days Active Emgality Active Naltrexone HCl 50 MG 4.5 mg Orally Once a day Active Cromolyn Sodium 100 MG/5ML Oral; Duratio n: 72 Days Active Dexmethylphenidate HCl 10 MG 1 tablet Or al Once a Day; Duration: 30 days 09/17/2024 10/17/2024 Active Ondansetron 4 MG 1 tablet on the tong ue and allow to dissolve Orally Once a day; Duration: 14 days 04/24/2022 Active FLUoxetine HCl 10 MG TAKE 1 CAPSULE BY MOUTH DAILY; Duration: 30 Active Vyvanse 40 MG 1 capsule in the morning Orally Once a day; Duration: 30 days 09/17/2024 Active cloNIDine HCl 0.1 MG TAKE 2 TABLETS BY MOUTH EVERY DAY Orally Once a day; Duration: 90 days Active Probiotic Active Antihistamine Active buPROPion HCl ER (XL) 150 MG 1 tablet in the morning Orally Once a day; Duration: 30 days 08/27/2024 Active Spironolactone 50 MG 1 tablet Orally [...] Status W/U Status Risk Notes Problem Rickettsiosis (217321645) Rickettsiosis, unspecified (A79.9) Active confirmed Problem 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) Active confirmed Problem Vitamin D deficiency (63764504) Vitamin D deficiency, unspecified (E55.9) Active confirmed Problem Mild recurrent major depression (29630083) Major depressive disorder, recurrent, mild (F33.0) Active confirmed Problem Attention deficit hyperactivity disorder, combined type (67005839) Attention-deficit hyperactivity disorder, combined type (F90.2) Active confirmed Problem Chronic intractable migraine without aura (095418382440193) Chronic migraine without aura, intractable, without status migrainosus (G43.719) Active confirmed Problem Essential hypertension (11863927) Essential (primary) hypertension (I10) Active confirmed Problem Hypermobility syndrome (99087273) Hypermobility syndrome (M35.7) Active confirmed Problem Lordosis finding (finding) (251485892) Lordosis, unspecified, site unspecified (M40.50) Active confirmed Problem Cervical spine instability (finding) (308168196) Spinal instabilities, cervical region (M53.2X2) Active confirmed Problem Cervicalgia (86044828) Cervicalgia (M54.2) Active confirmed Problem Intermenstrual bleeding - irregular (95075553) Excessive and frequent menstruation with irregular cycle (N92.1) Active confirmed Problem High antibody titer (782871377) Raised antibody titer (R76.0) Active confirmed Problem Mast cell activation syndrome (disorder) (7373218065363600 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 Problem Premenstrual dysphoric disorder (689843) Premenstrual dysphoric disorder (F32.81) Active confirmed Problem Postural orthostatic tachycardia syndrome (disorder) (430095378) Postural orthostatic tachycardia syndrome [POTS] (G90.A) Active confirmed Problem Refractory migraine with aura (disorder) (076257152) Chronic migraine with aura, intractable, without status migrainosus (G43.E19) Active confirmed Problem Marfan's syndrome (92641530) Marfan syndrome with other cardiovascular manifestations (Q87.418) Active confirmed Vital Signs Heart Rate 73 /min 08/27/2024 Temperature 96.3 degrees Fahrenheit 08/27/2024 Blood pressure diastolic 68 mm Hg 08/27/2024 Oximetry 98 % 08/27/2024 Height 67.5 in 08/27/2024 Blood pressure systolic 118 mm Hg 08/27/2024 Weight 147 lbs 08/27/2024 BMI 22.68 kg/m2 08/27/2024 Encounters Encounter Location Date Provider Diagnosis Nicolás Miner MD [address] [id number] 11/08/2023 Silvia Klein Chloasma L81.1 ; Premenstrual dysphoric disorder F32.81 ; Attention-deficit hyperactivity disorder, combined type F90.2 ; Chronic migraine without aura, intractable, without status migrainosus G43.719 ; Hypermobility syndrome M35.7 and Postural orthostatic tachycardia syndrome [POTS] G90.A Nicolás Miner MD [address] [id number] 01/17/2024 Silviamaureen Alatorree Chronic migraine without aura, intractable, without status migrainosus G43.719 Nicolás Miner MD [address] [id number] 02/07/2024 Silvia Klein Chloasma L81.1 ; Chronic migraine without aura, intractable, without status migrainosus G43.719 ; Attention-deficit hyperactivity disorder, combined type F90.2 ; Hypermobility syndrome M35.7 and Postural orthostatic tachycardia syndrome [POTS] G90.A Nicolás Miner MD [address] [id number] 05/07/2024 Silvia Klein Encounter for genera l [...] neoplasm of cervix Z12.4 Nicolás Miner MD [address] [id number] 05/24/2024 Silvia Klein Excessive and freque nt menstruation with irregular cycle N92.1 ; Chronic migraine without aura, intractable, without status migrainosus G43.719 ; Postural orthostatic tachycardia syndrome [POTS] G90.A ; Hypermobility syndrome M35.7 and Essential (primary) hypertension I10 Nicolás Miner MD [address] [id number] 07/03/2024 Silvia Klein Chronic migraine wit h aura, intractable, without status migrainosus G43.E19 ; Spinal instabilities, cervical region M53.2X2 ; Other fatigue R53.83 ; Hypermobility syndrome M35.7 ; Essential (primary) hypertension I10 and Chloasma L81.1 Nicolás Miner MD [address] [id number] 08/27/2024 Silvia Klein Cervicalgia M54.2 ; Lordosis, unspecified, site unspecified M40.50 ; Spinal instabilities, cervical region M53.2X2 ; Chronic migraine with aura, intractable, without status migrainosus G43.E19 ; Other fatigue R53.83 ; Chloasma L81.1 ; Major depressive disorder, recurrent, mild F33.0 and Attention-deficit hyperactivity disorder, combined type F90.2 Nicolás Miner MD [address] [id number] 09/18/2024 Silvia Klein Nicolás Miner MD [facility] [address] [id number] 10/05/2023 Silvia Klein Chronic migraine without aura, intractable, without status migrainosus G43.719 Nicolás Miner MD [facility] [address] [id number] 10/18/2023 Silvia Klein Chronic migraine without aura, intractable, without status migrainosus G43.719 Nicolás Miner MD PC [address] [place] [address] [id number] 11/11/2023 Silvia Klein Nicolás Miner MD PC [address] [place] [address] [id number] 11/16/2023 Silvia Klein Nicolás Miner MD PC [address] [place] [address] [id number] 12/06/2023 Silvia Klein Nicolás Miner MD PC [address] [place] [address] [id number] 03/28/2024 Silvia Klein Nicolás Miner MD [address] [id number] 04/04/2024 Silvia Klein Nicolás Miner MD [facility] [address] [place] [address] [id number] 05/07/2024 Silvia Klein Nicolás Miner MD [address] [id number] 06/08/2024 Silvia Klein Other fatigue R53.83 Nicolás Miner MD PC [address] [place] [address] [id number] 07/04/2024 Silvia Klein Nicolás Miner MD [address] [id number] 08/14/2024 Silvia Klein Nicolás [facility]er MD [facility] [address] [place] [address] [id number] 09/05/2024 Silvia Klein Other adrenocortical insufficiency E27.49 Nicolás Miner MD PC [address] [place] [address] [id number] 09/19/2024 Silvia Miner MD PC [address] [place] [address] [id number] 10/06/2023 Silvia Klein Attention-deficit hyperactivity disorder, combined type F90.2 Nicolás Miner MD [facility] [address] [place] [address] [id number] 10/09/2023 Silvia Klein Nicolás Miner MD [address] [id number] 10/24/2023 Silvia Klein Nicolás Miner MD [address] [id number] 10/31/2023 Silvia Klein Nicolás Miner MD [address] [id number] 12/01/2023 Silvia Klein Attention-deficit hyperactivity disorder, combined type F90.2 Nicolás Miner MD [address] [id number] 12/29/2023 Silvia Klein Attention-deficit hyperactivity disorder, combined type F90.2 Nicolás Miner MD [address] [id number] 01/23/2024 Silvia Klein Chronic migraine without aura, intractable, without status migrainosus G43.719 Nicolás Miner MD [address] [id number] 01/30/2024 Silvia Klein Attention-deficit hyperactivity disorder, combined type F90.2 Nicolás Miner MD [address] [id number] 02/22/2024 Silvia Klein Nicolás Miner MD [address] [id number] 02/22/2024 Silvia Klein Chronic migraine without aura, intractable, without status migrainosus G43.719 Nicolás Miner MD [address] [id number] 03/02/2024 Nicolás Miner Attention-deficit hyperactivity disorder, combined type F90.2 Nicolás Miner MD [address] [id number] 03/27/2024 Siliva Klein Attention-deficit hyperactivity disorder, combined type F90.2 Nicolás Miner MD [address] [id number] 03/29/2024 Silvia Klein Nicolás Miner MD [address] [id number] 04/19/2024 Silvia Klein Attention-deficit hyperactivity disorder, combined type F90.2 Nicolás Miner MD [address] [id number] 05/07/2024 Silvia Klein Nicolás Miner MD [address] [id number] 05/27/2024 Silvia Klein Attention-deficit hyperactivity disorder, combined type F90.2 Nicolás Miner MD [address] [id number] 06/25/2024 Nicolás Miner Attention-deficit hyperactivity disorder, combined type F90.2 Nicolás Miner MD [address] [id number] 07/23/2024 Silvia Alatorrealem Miner MD [address] [id number] 07/31/2024 Silvia Klein Attention-deficit hyperactivity disorder, combined type F90.2 Nicolás Miner MD [address] [id number] 07/31/2024 Silvia Ernie Miner MD [address] [id number] 09/17/2024 Silvia Klein Attention-deficit hyperactivity disorder, combined type F90.2 Nicolás Miner MD [address] [id number] 09/20/2024 Silvia Klein Assessments Encounter Date Diagnosis (ICD Code) Assessment Notes Treatment Notes Treatment Clinical Notes Section Notes 10/05/2023 Chronic migraine without aura, intractable, without status migrainosus (ICD-10 - G43.719) 10/06/2023 Attention-deficit hyperactivity disorder, combined type (ICD-10 - F90.2) last filled: 09/13/23 and 09/14/23 10/18/2023 Chronic migraine without aura, intractable, without status migrainosus (ICD-10 - G43.719) 11/08/2023 Chloasma (ICD-10 - L81.1) Discussed discolorations noted to face which seems suspicious for melasma. Pt is followed by [facility], and she would like to continue [...] follow-up to reassess symptoms since starting Prozac 02/07/2024 Chronic migraine without aura, intractable, without status migrainosus (ICD-10 - G43.719) Patient to continue tracking her migraines and to remain on her medications as prescribed by her functional medicine provider as well as her neurologist and Central Control Room Operator. Patient has seen improvement in the severity [...] for continued management of her skin concerns. 04/19/2024 Attention-deficit hyperactivity disorder, combined type (ICD-10 - F90.2) 05/07/2024 Chronic migraine without aura, intractable, without status migrainosus (ICD-10 - G43.719) Patient to continue tracking her migraines and to remain on her medications as prescribed by her functional medicine provider as well as her neurologist, motor coach tour operator, and 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 Patient has seen improvement [...] F90.2) 06/08/2024 Other fatigue (ICD-10 - R53.83) 07/31/2024 Attention-deficit hyperactivity disorder, combined type (ICD-10 - F90.2) 08/27/2024 Lordosis, unspecified, site unspecified (ICD-10 - M40.50) See plan above 09/05/2024 Other adrenocortical insufficiency (ICD-10 - E27.49) 08/27/2024 Cervicalgia (ICD-10 - M54.2) Reviewed with pt her cervical MR which did reveal straightening of cervical spine, which could be an underlying factor for her cervical next pain, although I suspect muscle spasms may be a larger factor for her pain. Pt would benefit from a consult with Dr. Balderas to discuss injection/treatment options for her continued pain 07/03/2024 Chronic migraine with aura, intractable, without [...] 1 month to further manage patient's headaches/migraines 06/25/2024 Attention-deficit hyperactivity disorder, combined type (ICD-10 - F90.2) 03/27/2024 Attention-deficit hyperactivity disorder, combined type (ICD-10 - F90.2) 03/02/2024 Attention-deficit hyperactivity disorder, combined type (ICD-10 - F90.2) 02/22/2024 Chronic migraine without aura, intractable, without status migrainosus (ICD-10 - G43.719) 01/30/2024 Attention-deficit hyperactivity disorder, combined type (ICD-10 - F90.2) 01/23/2024 Chronic migraine without aura, intractable, without status migrainosus (ICD-10 - G43.719) 01/17/2024 Chronic migraine without aura, intractable, without status migrainosus (ICD-10 - G43.719) Taught patient how t o self administer the Emgality injection Sub Q into her stomach, Patient self administered 120 ML of the Emgality. Patient aware to adminster the injection once a month. 12/29/2023 Attention-deficit hyperactivity disorder, combined type (ICD-10 - F90.2) 12/01/2023 Attention-deficit hyperactivity disorder, combined type (ICD-10 - F90.2) last filled: 11/09/23 09/17/2024 Attention-deficit hyperactivity disorder, combined type (ICD-10 - [...] forward with imaging at this time. 07/03/2024 Other fatigue (ICD-10 - R53.83) Patient [...] functional medicine and obtaining this lab work 08/27/2024 Spinal instabilities, cervical region (ICD-10 - M53.2X2) I suspect that patient's persistent headache and migraine symptoms that are occurring more days of the week than not may be due to some degree of cervical instability causing cervicogenic headaches. 05/24/2024 Chronic migraine without aura, intractable, without [...] needed for breakthrough focus and concentration issues. 05/07/2024 Attention-deficit hyperactivity disorder, combined type (ICD-10 [...] readings despite taking these treatments for ADHD 11/08/2023 Attention-deficit hyperactivity disorder, combined type (ICD-10 - F90.2) Stable and patient has seen great improvement in her concentration and focus with Vyvanse. Patient also continues to take her short-acting Dexmethylphenidate in the middle of the day as needed for breakthrough focus and concentration issues. Last filled per [facility]: 10/12/23 02/07/2024 Hypermobility syndrome (ICD-10 - M35.7) Patient is followed by [facility] for concerns of [...] heart rate episodes and palpitations in September. 08/27/2024 Chronic migraine with aura, intractable, without status migrainosus (ICD-10 - G43.E19) Reviewed with patient her persistent headache and migraine days, although improved a bit per patient, despite her Emgality, LDN, propranolol, and Botox treatments. Patient is tearful during today's visit as she states that nothing seems to be relieving the discomfort that she is feeling. Would like patient to remain on current medication regimen as well as be seen by Dr. Balderas to further manage her headache symptoms. Plan will be for follow up in 3 months, or sooner, if pt does not have any improvement in headaches with these modalities. The patient also shares that she believes that she is now beginning to have auras with her migraines. It is unclear as this is only happened twice. Advised patient to continue monitoring for symptoms prior to or after migraines and would like patient to follow-up with update them as the 2 episodes that she has had were what she believes were auras after experiencing a migraine, which is not a common presentation for auras 07/03/2024 Hypermobility syndrome (ICD-10 - M35.7) Patient is followed by [facility] for concerns of [...] this can further assist in pain/symptom management 08/27/2024 Other fatigue (ICD-10 - R53.83) Patient continues to have increased fatigue symptoms despite sleeping for good overnight. Recent lab work did reveal slight elevation in antithyroglobulin antibodies and discussed that we will continue to monitor this but it does not seem consistent with that Cornelius's at this time, despite patient's concerns of mother's history of Cornelius's. 05/24/2024 Hypermobility syndrome (ICD-10 - M35.7) Patient is followed by [facility] and genetics for concerns of H-EDS with [...] (ICD-10 - M35.7) Patient is followed by [facility] and genetics for concerns of H-EDS with [...] provider as well as her neurologist and Central Control Room Operator. Patient to contact the office once she [...] to reassess symptoms and review headache/migraine journal 11/08/2023 Hypermobility syndrome (ICD-10 - M35.7) Discussed with patient her symptoms/findings on previous exam of hypermobility Patient is followed by [facility] and genetics for concerns of H-EDS [...] levels than what patient was getting at [facility]. Did discuss proper use of home [...] any new or worsening symptoms of concern 08/27/2024 Chloasma (ICD-10 - L81.1) Patient continues to take spironolactone for underlying melasma treatment. She has been decreasing her spironolactone and is currently taking 25 mg daily. Discussed with patient that she can continue to taper down and see if this can further improve her skin concerns. Also discussed with patient that chemical peels as well as laser treatments have been shown to assist in managing chloasma and she could consider these treatments and discussed with dermatology as well 07/03/2024 Essential (primary) hypertension (ICD-10 - I10) [...] next follow up. Patient is followed by [facility] and states that she will discuss this with dermatology as well 08/27/2024 Major depressive disorder, recurrent, mild (ICD-10 - F33.0) Patient continues to have low moods and depressive symptoms and suspect that this may be an underlying factor in her continued fatigue. Patient to remain on current medication regimen and will also add Wellbutrin to see if this can further manage her low moods. Patient aware that if she has any negative side effects or increased anxiety she should contact the office and potentially stop Wellbutrin and discuss alternative treatment options to further manage her major depressive symptoms 05/07/2024 Premenstrual dysphoric disorder (ICD-10 - F32.81) [...] to verify that there is no deficiency 08/27/2024 Attention-deficit hyperactivity disorder, combined type (ICD-10 - F90.2) Patient feels stable and well-controlled on her current Vyvanse and dexmethylphenidate dosing. Patient to remain on current regimen and will refill medication as requested today 05/07/2024 Encounter for screening for cardiovascular disorders [...] he r Pap smear in 2021 through [facility] [employer]. Patient is aware she is due for [...] Order Date Ultrasound : Breast, right 05/12/2022 CORTISOL 30 MIN POST 09/05/2024 CORTISOL 60 MIN POST 09/05/2024 HOLTER MONITOR, 7 DAYS, APPLICATION 07/07 HOLTER MONITOR, 7 DAYS, INTERPRETATION 0 09/07/2023 Cortisol-[id number] 06/08/2024 Cortisol, ACTH Stimulation-[id number] 2024 Next Appt Details Provider Name:Silvia Klein , 11/21/2024 10:00:00 AM, [address] [place] [address], [phone], Provider Name:Silvia Klein , 05/16/2025 09:00:00 AM, [address] [place] [address], [place] [address], [place], [place], [phone], Insurance Providers Payer Name Payer Address Payer Phone Subscriber Number Group Number Insured Name Patient Relationship to Insured Coverage Start Date Coverage End Date [facility] [address] [place] [address] [id number] Elvira Braun Self - patient is the insured Medical (General) History Medical History History ICD Code ADHD Migraines (since childhood) Elevated TPO antibody Genetic testing through [employer] - revealed potential BRCA 2 gene Surgical History Surgery Date(Month/Year) Appendix 2013 Hospitalization History Reason Date(Month/Year) Appendix 2013
[2024-10-02 07:46] VITALS: BP 106/68; PULSE 71; O2SAT 96; BMI 22.0
--- NOTE | 2024-10-02 07:46 | A.OFFVIS_ITS ---
Vital Signs 10/02/24 07:46 Height 5 ft 7 in Weight 140 lb 8 oz BMI 22.0 BP 106/68 Blood Pressure Location Lt brachial Position Sitting Pulse 71 Pulse Source Pulse Oximeter Pulse Oximetry (%) 96 Oxygen Delivery Method Room Air Intake Visit Reasons: Botox Intake Note: Patient presents for Botox injection Accompanied by: Self / Same As Patient Allergies amoxicillin Allergy (Unknown, Verified 10/02/24 07:49) Unknown Penicillins Allergy (Unknown, Verified 10/02/24 07:49) Unknown sulfamethoxazole (From Bactrim) Allergy (Unknown, Verified 10/02/24 07:49) Hives trimethoprim (From Bactrim) Allergy (Unknown, Verified 10/02/24 07:49) Hives Medication List - Last Reconciled 10/02/24 by Marisol Solares MD bupropion HCl XL (Wellbutrin XL) 150 mg PO QAM cetirizine (Zyrtec) 10 mg PO DAILY PRN cholecalciferol (vitamin D3) 125 mcg PO DAILY clonidine HCl 0.2 mg PO DAILY dexmethylphenidate 10 mg PO famotidine 40 mg PO BID PRN galcanezumab-gnlm (Emgality Pen) mg subcut lisdexamfetamine (Vyvanse) 30 mg PO DAILY magnesium tabs PO DAILY naltrexone mg PO DAILY onabotulinumtoxinA (Botox) 200 units IM ONCE 12 weeks propranolol 10 mg PO BID 90 days riboflavin (vitamin B2) 400 mg (4 x 100 mg) PO DAILY 30 days spironolactone 100 mg PO QAM [spore basedv probiotic PO DAILY] tretinoin 0.05% 1 appl topical BEDTIME HPI Comments Details: ? 29y/o female comes for treatment of migraines with botox. How many migraine days prior to botox- >20 migraine days /month How long do the migraines last- 12-24 hrs Intensity of orhzfdng-5-05/10 ER visits related to migraine- none Effectiveness of botox from last two treatment(s)- this is her second treatment How many migraine days since receiving treatment- 15 migraine days Change? in intensity of migraine?- decreased Change in frequency of migraine?- decreased Change in use of acute medication for migraine?-decreased Change in quality of life?- better ER visits related to migraine?- none Have at least three months elapsed since last treatment (Last botox date - frequency of injections)- 3 months ??? Most frequent reported adverse reactions following injection of botox for chronic migraine include neck pain (9%), headache(5%), eyelid ptosis(4%), migraine(4%), muscular weakness(4%), musculuskeletal stiffness(4%), bronchitis(3%), injection site pain (3%), musculoskeletal pain(3%), myalgia(3%), facial paresis(2%), HTN(2%) and muscle spasms(2%) were discussed in detail. ??? Botulinum toxin typeA 200units Lot no [id number] expiration Dec 2026 was diluted with 4 cc of normal saline . ??? Muscles injected- ??? Frontalis 2 sites ??? Masseter- 6 sites Splenius capitus- 4 sites business representative 2 sites ? Temporalis- 8 sites 5 units each ? Trapezius- 6 sites- 10 units each ? Total use- 170units ??? Discarded-30units [facility] Medical History IBS (irritable bowel syndrome) GERD (gastroesophageal reflux disease) Positive ZHEN (antinuclear antibody) ADHD (attention deficit hyperactivity disorder) Surgical History Hx of appendectomy Family History Father Hypertension Mother Hypertension Cornelius's thyroiditis Maternal Grandmother Migraines Social History Alcohol intake: current Alcohol intake frequency: a few times a month Patient Tobacco Use Status: Never used Tobacco Substance Use Type: Marijuana Physical Exam Vital Signs: Last Vital Signs Pulse 71 10/02/24 07:46 BP 106/68 10/02/24 07:46 Pulse Ox 96 10/02/24 07:46 Oxygen Delivery Method Room Air 10/02/24 07:46 BMI result Body Mass Index 22.0 Const General: cooperative and no acute distress Orientation/consciousness: patient oriented x3 Resp Effort & Inspection: normal respiratory effort and able to speak in complete sentences Neuro General: patient oriented x3 Cranial nerves: Yes CN's II-XII intact bilaterally Cognition (Neuro): normal cognition Psych Appearance: grossly normal Mental Status: mental status grossly normal Speech and movement: Normal speech and movement present Affect: normal affect Attitude: cooperative Office Procedures Botulinum toxin Injection 49255 - Migraine Procedure code (CPT) selection complete Office Meds onabotulinumtoxinA 200 unit solution for injection Performing Provider: Marisol Solares MD Performing Location: [facility] Administered by: Marisol Solares MD on 10/02/24 12:52 Dose Route Admin Location Dispensed Lot Number Expiration Date [facility] Compliance Clerk 170 unit subcut 200 units [id number] ALLERGAN /BOTOX Total Dispensed Waste 200 units 15 % Comments: see hpi Assessment & Plan Assessment & Plan (1) TMJ (temporomandibular joint disorder): Code(s): M26.609 - Unspecified temporomandibular joint disorder, unspecified side Category: Medical (2) Chronic migraine without aura: Code(s): G43.709 - Chronic migraine without aura, not intractable, without status migrainosus Category: Medical Qualifiers: Intractability: intractable Status migrainosus presence: without status migrainosus Qualified Code(s): G43.719 - Chronic migraine without aura, intractable, without status migrainosus Plan Patient tolerated the procedure well she will call with any side effects Orders: Orders AMB Botulinum toxin Injection Today G43.719 - Chronic migraine without aura, intractable, without status migrainosus Coding Level of Care Code Est Pt Level 1 (62276) Diagnoses TMJ (temporomandibular joint disorder) M26.609 Intractable chronic migraine without aura and without status migrainosus G43.719 Intractability: intractable Status migrainosus presence: without status migrainosus CPT Codes Botox Injection - Botox 3: 81013 - Migraine ([id number])
== END 2024-10-02 08:25 | disposition home or self-care (01) ==
LOC: HO.HSMS 07:41
PROVIDERS: PCP Nurse Practitioner Family; Visit Provider Psychiatry & Neurology Neurology
DX: G43.719 Chronic migraine without aura, intractable, without status migrainosus (principal)
CPT/HCPCS: 64615

== ENCOUNTER → 2024-10-02 07:41 | Outpatient (BNVA) | payer OTHER, SELFPAY | PROVIDERS: PCP Nurse Practitioner Family; Visit Provider Psychiatry & Neurology Neurology | DX: G43.719 Chronic migraine without aura, intractable, without status migrainosus (principal); M26.609 Unspecified temporomandibular joint disorder, unspecified side; K58.9 Irritable bowel syndrome, unspecified; K21.9 Gastro-esophageal reflux disease without esophagitis; F90.9 Attention-deficit hyperactivity disorder, unspecified type | CPT/HCPCS: 64615; 99211; J0585 ==

== ENCOUNTER 2025-01-01 08:01 | Outpatient (AMB) | payer OTHER, SELFPAY ==
--- OUTSIDE RECORDS SUMMARY | 2024-11-21 06:00 | XMS_ITS ---
Author Organization Nicolás Miner MD Address [address] [place] [phone] Care Team Providers Care Special Agent In Charge Name Role Phone Silvia Klein Primary Care Provider REASON FOR VISIT 3m f/u headaches Encounters Encounter Location Date Provider Diagnosis Nicolás Miner MD [address] [place] [address] [place] [phone] 11/21/2024 Silvia Klein Plan Of Treatment Next Appt Details Provider Name:Silvia Klein , 03/26/2025 09:00:00 AM, [address] [place] [address], [phone], Provider Name:Silvia Klein , 05/16/2025 09:00:00 AM, [address] [place] [address], [phone], Progress Notes * Srikanth VILLEGASeDOB:1995 (29 yo F)Acc No.[id number]:11/21/2024 Patient: Galen VelazquezDARVIN Elvira Appointment Provider: Prateek Klein DNP :1995 A ge:29 Y S ex:Female Date:11/21/2024 Address:[address] [place], [place] [address] [id number] Subjective: * Chief Complaints: * 1 . 3m f/u headaches. * Medical History: Objective: * Vitals: Past Vitals:* 08/27/2024 Temp:96.3F, HR:73/min, BP:11 8/68mm Hg, Wt:147lbs, BMI:22.68Index, Ht:67.5in, Oxygen sat %:98% * 07/03/2024 Temp:96.7F, HR:96/min, BP:12 2/68mm Hg, Wt:147lbs, BMI:22.68Index, Ht:67.5in, Oxygen sat %:97% * 05/24/2024 Temp:96.8F, HR: 115 /min,88/ min, BP: Sitting Right Arm:132/84 mm Hg,Own Machine:165/98 mm Hg,Sitting Left Arm:130/76 mm Hg,Sitting Right Arm:118/70mm Hg, Wt:142lbs, BMI:21.91Index, Ht:67.5in, Oxygen sat %:98% Assessment: Plan: * Treatment: * Images: Billing Information: * Visit Code: * Procedure Codes: * Electronic signature of Ethel Klein DNP on 01/01/2025 at 08:08 AM EDT Sign off status: Pending * Appointment Provider: Prateek Klein DNP Date: 0 11/21/2024 Generated for Collin allen/Nancy/Kevin on: 1 08:08 AM EDT
--- NOTE | 2025-01-01 08:04 | MHC.OFFVIS ---
Vital Signs 01/01/25 08:05 Height 5 ft 7 in Weight 153 lb 4 oz BMI 24.0 BP 114/80 Blood Pressure Location Rt brachial Position Sitting Pulse 73 Pulse Source Pulse Oximeter Pulse Oximetry (%) 98 Oxygen Delivery Method Room Air Intake Visit Reasons: Botox Intake Note: Botox 200 Science Technician Required: No Accompanied by: Self / Same As Patient Allergies amoxicillin Allergy (Unknown, Verified 01/01/25 08:05) Unknown Penicillins Allergy (Unknown, Verified 01/01/25 08:05) Unknown sulfamethoxazole (From Bactrim) Allergy (Unknown, Verified 01/01/25 08:05) Hives trimethoprim (From Bactrim) Allergy (Unknown, Verified 01/01/25 08:05) Hives Medication List - Last Reconciled 01/01/25 by Marisol Solares MD azelaic acid 15% topical bupropion HCl XL (Wellbutrin XL) 150 mg PO QAM cetirizine (Zyrtec) 10 mg PO DAILY PRN cholecalciferol (vitamin D3) 125 mcg PO DAILY clonidine HCl 0.2 mg PO DAILY cromolyn mg PO dexmethylphenidate 10 mg PO famotidine 40 mg PO BID PRN galcanezumab-gnlm (Emgality Pen) mg subcut lisdexamfetamine (Vyvanse) 40 mg PO QAM magnesium tabs PO DAILY naltrexone mg PO DAILY onabotulinumtoxinA (Botox) 200 units IM ONCE 12 weeks propranolol 20 mg PO BID riboflavin (vitamin B2) 400 mg (4 x 100 mg) PO DAILY 30 days spironolactone 100 mg PO QAM [spore basedv probiotic PO DAILY] tretinoin 0.05% 1 appl topical BEDTIME HPI Comments Details: ? 29y/o female comes for treatment of migraines with botox. How many migraine days prior to botox- >20 migraine days /month How long do the migraines last- 12-24 hrs Intensity of jaetwidx-4-72/10 ER visits related to migraine- none Effectiveness of botox from last two treatment(s)- this is her second treatment How many migraine days since receiving treatment- 15 migraine days Change? in intensity of migraine?- decreased Change in frequency of migraine?- decreased Change in use of acute medication for migraine?-decreased Change in quality of life?- better ER visits related to migraine?- none Have at least three months elapsed since last treatment (Last botox date - frequency of injections)- 3 months ??? Most frequent reported adverse reactions following injection of botox for chronic migraine include neck pain (9%), headache(5%), eyelid ptosis(4%), migraine(4%), muscular weakness(4%), musculuskeletal stiffness(4%), bronchitis(3%), injection site pain (3%), musculoskeletal pain(3%), myalgia(3%), facial paresis(2%), HTN(2%) and muscle spasms(2%) were discussed in detail. ??? Botulinum toxin typeA 200units Lot no [id number] expiration Feb 2027 was diluted with 4 cc of normal saline . ??? Muscles injected- ??? Frontalis 2 sites ??? Masseter- 6 sites Splenius capitus- 4 sites irish moss gatherer 2 sites ? Temporalis- 8 sites 5 units each ? Trapezius- 6 sites- 10 units each ? Total use- 170units ??? Discarded-30units [facility] Medical History IBS (irritable bowel syndrome) GERD (gastroesophageal reflux disease) Positive ZHEN (antinuclear antibody) ADHD (attention deficit hyperactivity disorder) Surgical History Hx of appendectomy Family History Father Hypertension Mother Hypertension Cornelius's thyroiditis Maternal Grandmother Migraines Social History Alcohol intake: current Alcohol intake frequency: a few times a month Patient Tobacco Use Status: Never used Tobacco Substance Use Type: Marijuana Physical Exam Vital Signs: Last Vital Signs Pulse 73 01/01/25 08:05 BP 114/80 01/01/25 08:05 Pulse Ox 98 01/01/25 08:05 Oxygen Delivery Method Room Air 01/01/25 08:05 BMI result Body Mass Index 24.0 Const General: cooperative and no acute distress Orientation/consciousness: patient oriented x3 Resp Effort & Inspection: normal respiratory effort and able to speak in complete sentences Neuro General: patient oriented x3 Cranial nerves: Yes CN's II-XII intact bilaterally Cognition (Neuro): normal cognition Psych Appearance: grossly normal Mental Status: mental status grossly normal Speech and movement: Normal speech and movement present Affect: normal affect Attitude: cooperative Office Procedures Botulinum toxin Injection 95823 - Migraine Procedure code (CPT) selection complete Office Meds onabotulinumtoxinA 200 unit solution for injection Performing Provider: Marisol Solares MD Performing Location: [facility] Administered by: Marisol Solares MD on 01/01/25 08:57 Dose Route Admin Location Dispensed Lot Number Expiration Date [facility] Owner 185 unit subcut 200 units [id number] ALLERGAN/BOTOX Total Dispensed Waste 200 units 7.5 % Comments: see HPI Assessment & Plan Assessment & Plan (1) TMJ (temporomandibular joint disorder): Code(s): M26.609 - Unspecified temporomandibular joint disorder, unspecified side Category: Medical (2) Chronic migraine without aura: Code(s): G43.709 - Chronic migraine without aura, not intractable, without status migrainosus Category: Medical Qualifiers: Status migrainosus presence: without status migrainosus Intractability: intractable Qualified Code(s): G43.719 - Chronic migraine without aura, intractable, without status migrainosus Plan Patient tolerated the procedure well she will call with any side effects Orders: Orders AMB Botulinum toxin Injection Today G43.719 - Chronic migraine without aura, intractable, without status migrainosus Coding Level of Care Code Est Pt Level 1 (91505) Diagnoses TMJ (temporomandibular joint disorder) M26.609 Intractable chronic migraine without aura and without status migrainosus G43.719 Status migrainosus presence: without status migrainosus Intractability: intractable CPT Codes Botox Injection - Botox 3: 08371 - Migraine ([id number])
[2025-01-01 08:05] VITALS: BP 114/80; PULSE 73; O2SAT 98; BMI 24.0
--- OUTSIDE RECORDS SUMMARY | 2025-01-01 08:09 | XMS_ITS | Clinical Summary ---
Author Organization [facility] Address [facility] [place] [address] Care Team Providers Care Hat Forming Machine Operator Name Role Phone Silvia Klein APRN Primary Care Provider Social History Tobacco Use Types Packs/Day Years Used Date Smoking Tobacco: Never Assessed Comments Unknown Sex and Gender Information Value Date Recorded Sex Assigned at Not on file Legal Sex Female 11:58 AM EST Gender Identity Not on file Sexual Orientation Not on file Plan of Treatment Health Maintenance Due Date Last Done Comments HIV screen 2014 Hepatitis C Screening 2014 Hepatitis B vaccine (0-59 yrs) and Risk (1) 2015 Tetanus/Diphtheria/Pertussis Vaccines (1 - Tdap) 03/09 PAP Smear 2017 Covid-19 Vaccine ( - 2023- season) 2024 Influenza (Flu) vaccine (1 o f 1 - Influenza standard series) 11/05/2024 Insurance [employer] Care Teams Hat Forming Machine Operator Relationship Specialty Start Date End Date Silvia Klein APRN [address] [place] [address] PCP - General Family Medicine 05/13/23
--- OUTSIDE RECORDS SUMMARY | 2025-01-01 08:09 | XMS_ITS ---
Author Name Celena Castelan Address Unknown Organization [facility] Care Team Providers Care Prospecting Driller Name Role Phone Unavailable Primary Care Physician Unavailab le History Of Present Illness This is a 29 year old female who is following up for acne (Acne vulgaris). She was seen on 2024, at which time the following treatment recommendations were given: Plan: It is possible that Spironolactone is exacerbating Melasma. Pt is very happy with her skin, and does not want to change tx regimen. Advised her I can Rx topical Winlevi, topical dapsone PRN.The patient presents for follow up evaluation and further evaluation and management.The patient followed the treatment plan as directed.Interval History: Patient reports things are going well at this time. Would like a refill for Spironolactone. Allergies, Adverse Reactions, Alerts Substance RxNorm Reaction(s) Severity Status Start Da te Penicillins Hives unspecified active 2021 Bactrim 854825 Hives unspecified active 03/05/20 22 Medications Medication Generic Name RxNorm Strength Strength Unit Route Dose Dose Form Frequency Date Started Date Ended Status Indication Sig azelaic acid azelaic acid 6075489 15 % Topica l gel daily 10/10/19 24 active acne Appl y thin laye r to face BID PRN acne . Use topi sayra tret inoi n 10 mins . Prio r qHS hydroquinon e hydroqui none 403773 4 % Topica l cream 12/28/19 25 active Appl y 0.25 g (a thin laye r) once roma y to the affe cted area s of face . tretinoin tretinoi n 182122 0.025 % Topica l cream Qhs 03/05/20 22 active pea- size d amou nt to dry face ever y othe r nigh t, work ing up to nigh tly as tole rate d. Non- come doge hattie mois turi zer 10 mins afte r (cos meti c) tretinoin tretinoi n 300409 0.05 % Topica l cream 10/07/19 23 suspend ed Appl y a pea- size d amou nt to dry face . Non- come doge hattie mois turi zer 10 mins afte r. Can alt. With 0.02 5 % unti l tole rati ng 0.5 % nigh tly clonidine HCl clonidin e HCl 511399 0.1 mg Oral 1 table t daily active Acne dexmethylph enidate dexmethy lphenida te 212595 10 mg Oral 1 table t daily active Focalin XR dexmethy lphenida te 446323 10 mg Oral capsu le,ER bipha sic 50-50 suspend ed propranolol proprano lol 610066 20 mg Oral 1 table t twice daily active spironolact one spironol actone 19810409 50 mg Oral table t 03/12/19 23 suspend ed Take 1 qAM x 1 week . If no side effe cts, incr ease to 2 qAM x 2 week s, then 3 qAM x 2 week s, then 4 qAM. No exce ss pota ssiu m in diet . No preg nanc y. spironolact one spironol actone 631789 75 mg Oral 1 table t once a day 10/07/19 23 active Acne 1 PO qAM Stay well hydr ated . No exce ss pota ssiu m in diet . [place] to[place] hattie - use male late x cond oms cons iste ntly /cor rect ly spironolact one spironol actone 132882 25 mg Oral table t 03/17/19 24 suspend ed 1 tabl et PO qAM in kofi tion to Spir onol acto ne 100 mg. Can incr ease to 150 - 200 mg qAM if no AEs. spironolact one spironol actone 859123 25 mg Oral table t 12/28/19 25 active Take 3 tabl ets PO roma y Vyvanse lisdexam fetamine 40 mg Oral capsu le suspend ed Vyvanse lisdexam fetamine 375210 40 mg Oral 1 capsu le daily active Wellbutrin XL bupropio n HCl 534371 150 mg Oral 1 table t, exten ded relea se 24 hr daily active Alyacen NULL 11/16/19 17 active Amphetamine -Dextroamph et ER NULL 11/16/19 17 active Amphetamine -Dextroamph et ER NULL 11/16/19 17 active buPROPion HCl ER (SR) NULL 11/05 03/26 17 active buPROPion HCl ER (XL) NULL 11/05 03/26 17 active buPROPion HCl ER (XL) NULL 11/05 03/26 17 active FLUoxetine HCl NULL 11/16/19 17 active FLUoxetine HCl NULL 11/16/19 17 active fluvoxaMINE Maleate NULL 11/16/19 17 active lamoTRIgine NULL 11/16/19 17 active LORazepam NULL 11/16/19 17 active Nortriptyli ne HCl NULL 11/16/19 17 active Nortriptyli ne HCl NULL 11/16/19 17 active Tri-Prevife m NULL 11/16/19 17 active Tri-Sprinte c NULL 11/16/19 17 active Problems Problem Code Type Status Date of Diagnosis Da te of Resolution Acne vulgaris (disorder) 97217702([facility] ED) Diagnosis active 12/27/2024 Chloasma (disorder) 36278876([facility] ED) Diagnosis active 12/27/2024 Non-scarring alopecia (disorder) 035456827([facility]) Diagnosis active 12/27/2024 Patient encounter status (finding) 234325313([facility]) Diagnosis active 04/30/2024 Chloasma (disorder) 94271945([facility] ED) Diagnosis active 04/11/2024 Acne vulgaris (disorder) 32695884([facility] ED) Diagnosis active 04/11/2024 Acne vulgaris (disorder) 78133689(SNOM ED) Diagnosis active 10/10/2023 Non-scarring alopecia (disorder) 874317373([facility]) Diagnosis active 10/10/2023 Chloasma (disorder) 28306110([facility] ED) Diagnosis active 10/10/2023 Non-scarring alopecia (disorder) 254542575([facility]) Diagnosis active 03/17/2023 Acne vulgaris (disorder) 85573463([facility] ED) Diagnosis active 03/17/2023 Non-scarring alopecia (disorder) 103070709([facility]) Diagnosis active 10/06/2022 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 to non-ionizing radiation (disorder) 495683977([facility]) Diagnosis active 10/06/2022 Verruca vulgaris (disorder) 22307953([facility] ED) Diagnosis active 03/05/2022 Non-scarring alopecia (disorder) 140676397([facility]) Diagnosis active 03/05/2022 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 Office phonenumber is [phone]. Office fax number is [phone]. Encounter Diagnosis Location Date / Time Type Acne (L70.0)Melasma (L81.1)F emale Pattern Alopecia (L65.8) [facility] 12/27/2024 12:15:00 [facility] [id number] Reason For Referral No data Procedures Procedure Date Punch biopsy (procedure) 03/05/2022 12:0 0 am [facility] Documentation of past medical history (p rocedure) Documentation of past medical history (p rocedure) Documentation of past medical history (p rocedure) Documentation of past medical history (p rocedure) Documentation of past medical history (p rocedure) Documentation of past medical history (p rocedure) Documentation of past medical history (p rocedure) Documentation of past medica l history (procedure) Appendectomy Review Of Systems Provider reviewed on Dec 27, 2024.A focused review of systems was performed including Integumentary.No Problems With Healing And No Problems With Scarring (hypertrophic Or Keloid). Assessment 1.AcnePrescription Medication Management: Continue Regimen - :- spironolactone 75 mg daily- tretinoin cream;.2.MelasmaCounselingPrescription Medication Management: Continue Regimen - :- tretinoin 0.025% qHS; Initiate Treatment - :- hydroquinone 4% cream once daily;.Prescription: hydroquinone 4 % topical cream TP3.Female Pattern AlopeciaPrescription Medication Management: Continue Regimen - :- spironolactone 75 mg daily (refilled today);.Prescription: spironolactone 25 mg tablet PO Plan of Care Future visit for 12/27/2025 - Follow up in 1 year for: Skin Check - 15 minutes Code Detail Instructions 19761109 hydroquinone 4 % topical cream A pply 0.25 g (a thin layer) once daily to the affected areas of face. 921637 spironolactone 25 mg tablet Take 3 tablets PO daily 19810408 spironolactone 100 mg tablet 1 t ab PO qAM Stay well hydrated. No excess potassium in diet. Teratogenic - use male latex condoms consistently/correctly 816514 spironolactone 25 mg tablet 1 ta blet PO qAM in addition to Spironolactone 100 mg. Avoid excess dietary potassium. Teratogenic - use male latex condoms consistently/correctly 19810408 spironolactone 100 mg tablet 1 t ab PO qAM Stay well hydrated. No excess potassium in diet. Teratogenic - use male latex condoms consistently/correctly 4321321 azelaic acid 15 % topical gel Ap ply thin layer to face BID PRN acne. Use topical tretinoin 10 mins. Prior qHS 768758 spironolactone 25 mg tablet 1 ta blet PO qAM in addition to Spironolactone 100 mg. Can increase to 150 - 200 mg qAM if no AEs. 19810408 spironolactone 100 mg tablet 1 P O qAM Stay well hydrated. No excess potassium in diet. Teratogenic - use male latex condoms consistently/correctly 904204 tretinoin 0.025 % topical cream Apply pea-sized amount to dry face for acne 983779 spironolactone 25 mg tablet 1 ta blet PO qAM in addition to Spironolactone 100 mg. Can increase to 150 - 200 mg qAM if no AEs. 19810408 spironolactone 100 mg tablet 1 P O qAM Stay well hydrated. No excess potassium in diet. Teratogenic - use male latex condoms consistently/correctly 694051 tretinoin 0.05 % topical cream A pply a pea-sized amount to dry face. Non-comedogenic moisturizer 10 mins after. Can alt. With 0.025 % until tolerating 0.5 % nightly 19810409 spironolactone 50 mg tablet Take 1 qAM x 1 week. If no side effects, increase to 2 qAM x 2 weeks, then 3 qAM x 2 weeks, then 4 qAM. No excess potassium in diet. No . 407265 tretinoin 0.025 % topical cream pea-sized amount to dry face every other night, working up to nightly as tolerated. Non-comedogenic moisturizer 10 mins after (cosmetic) Instructions * I counseled the patient regarding the following:I am not concerned about her use of spironolactone,as long as she is not increasing her absolute estrogen levels. Sent rx for hydroquinone cream to beapplied daily to affected areas. Ok to use tretinoin cream prior to hydroquinone application. We could consider oral tranexamic acid if desired in the future. Social History Code Activity Start Date End Date [id number] ([employer]) Never smoker Sex female Sexual orientation Unspecified Gender identity Unspecified Vital Signs No data
--- OUTSIDE RECORDS SUMMARY | 2025-01-01 08:09 | XMS_ITS | Clinical Summary ---
Author Organization [facility] Address [address] [place] [address] Care Team Providers Care Entry Analyst Name Role Phone Silvia Klein MD Primary Care Provider [phone] Allergies Active Allergy Reactions Criticality Noted Date Comments Penicillins Hives Medium 10/25/2024 Medications No known medications Active Problems No known active problems Encounters Date Type Department Care Team Description 12/25/2024 5:00 PM EDT Treatment [address] [phone] System, Provider Not In [place], [place], PT Cervicalgia (Primary Dx); Chronic intractable headache, unspecified headache type; Benign joint hypermobility 12/25/2024 Travel 12/04/2024 5:00 PM EDT Treatment [address] [phone] System, Provider Not In [place], [place], PT Cervicalgia (Primary Dx); Chronic intractable headache, unspecified headache type; Benign joint hypermobility 12/04/2024 Travel 11/13/2024 5:00 PM EDT Treatment [address] [address] System, Provider Not In [place], [place], PT Cervicalgia (Primary Dx); Chronic intractable headache, unspecified headache type; Benign joint hypermobility 11/13/2024 Travel 10/30/2024 5:00 PM EDT Treatment [address] [address] System, Provider Not In [place], [place], PT Cervicalgia (Primary Dx); Chronic intractable headache, unspecified headache type; Benign joint hypermobility 10/30/2024 Travel 10/25/2024 11:30 AM EDT Evaluation [address] [place] [address] [employer], [employer] [place] Shi, PT Cervicalgia (Primary Dx); Chronic intractable headache, unspecified headache type; Benign joint hypermobility 10/25/2024 Travel from Last 3 Months Social History Tobacco Use Types Packs/Day Years Used Date Smoking Tobacco: Never Assessed Comments Unknown Sex and Gender Information Value Date Recorded Sex Assigned at Not on file Legal Sex Female 3:10 PM EST Gender Identity Not on file Sexual Orientation Not on file Plan of Treatment Upcoming Encounters Date Type Department Care Team (Late st Contact Info) Description 01/15/2025 5:00 PM EST Treatment [address] [place] [address] System, Provider Not In [place] Shi, PT [address] [place] [address] 01/22/2025 5:00 PM EST Treatment [address] [place] [address] System, Provider Not In [place] Shi, PT [address] [place] [address] 01/29/2025 5:00 PM EST Treatment [address] [place] [address] System, Provider Not In [place] Shi, PT [address] [place] [address] 02/04/2025 8:00 AM EST Treatment [address] [place] [address] System, Provider Not In [place] Shi, PT [address] [place] [address] 02/14/2025 8:00 AM EST Treatment [facility] Back [address] [facility] [place] [address] System, Provider Not In [place] Shi, PT [address] [place] [address] 02/18/2025 8:00 AM EST Treatment [facility] Back [address] [place] [address], [place] [address] System, Provider Not In [place] Shi, PT [address] [place] [address] 02/25/2025 8:00 AM EST Treatment [facility] Back [address] [place] [address], [place] [address] System, Provider Not In [place] Shi, PT [address] [place] [address] 03/11/2025 8:00 AM EST Treatment [facility] Back [address] [place] [address], [place] [address] System, Provider Not In [place] Shi, PT [address] [place] [address] 03/18/2025 8:00 AM EST Treatment [facility] Back [address] [place] [address], [place] [address] System, Provider Not In [place] Shi, PT [address] [place] [address] 03/28/2025 8:00 AM EST Treatment [facility] Back [address] [place] [address], [place] [address] System, Provider Not In [place] Shi, PT [address] [place] [address] 04/04/2025 8:00 AM EST Treatment [facility] Back [address] [place] [address], [place] [address] System, Provider Not In [place] Shi, PT [address] [place] [address] 04/09/2025 5:00 PM EST Treatment [facility] [address] [facility] [place] [address] System, Provider Not In [place] Shi, PT [address] [place] [address] 04/16/2025 4:30 PM EST Treatment [facility] [address] [facility] [place] [address] System, Provider Not In [place] Shi, PT [address] [place] [address] 04/23/2025 4:30 PM EST [facility] [address] [facility] [place] [address] System, Provider Not In [place] Shi, PT [address] [place] [address] 04/30/2025 4:30 PM EST [facility] [address] [facility] [place] [address] System, Provider Not In [place] Shi, PT [address] [place] [address] Health Maintenance Due Date Last Done Comments Hepatitis C Virus Screening 1996 HIV Screening 2009 DTaP/Tdap/Td Vaccines (1 - Tdap) 2015 Hepatitis B Vaccines (1 of 3 - 19+ 3-dose series) 2015 Pap Smear (Ages 21-65) 2017 Influenza Vaccine 10/05/2024 COVID-19 Vaccine ( - 2023-2 5 season) 2024 HPV Vaccines (No Doses Required) Completed Pneumococcal Vaccine: Pediat dorothy (0-5 Years) and At-Risk Patients (6 to 49 Years) Aged Out No longer eligible b ased on patient's age to complete this topic Goals Goal Patient Goal Type Associated Problems Recent Progress Patient-Stated? Author PT LTG 1 Physical Therapy No [place] Shi, PT Note: PT Goals October 2024: Pt will demonstrate functional improvement on Neck Disability Index (NDI) as demonstrated by 10% decrease in score in 12 weeks Increase cervical AROM 100% all directions in 12 weeks Increase DNF endurance test to 30 sec in 12 weeks Improve MMT rhomboids, mid trap, low trap by 1/3 grade in 12 weeks Able to look up with neck pain < 3/10 in 12 weeks Able to look down with neck pain < 3/10 in 12 weeks Able to sit and work on computer x 30 min with neck pain < 3/10 in 12 weeks Able to lift 30 lb floor to waist with proper body mechanics in [address] [place] [address] [facility] Care Teams Entry Analyst Relationship Specialty Start Date End Date Silvia Klein MD [address] [place] [id number] PCP - General General Medicine 03/12/24
--- OUTSIDE RECORDS SUMMARY | 2025-01-01 08:09 | XMS_ITS | Encounter Summary ---
Author Organization [facility] Address [address] [place] [address] Care Team Providers Care Wax Coating Machine Tender Name Role Phone Unavailable Primary Care Provider Unavailabl e Encounter Details Date Type Department Care Team (Late st Contact Info) Description 07/25/2023 Scanned Document [facility] [address] [facility] [address] [place], [place] [id number] Yemi Gray MD [address] [place] [address] Social History Tobacco Use Types Packs/Day [...]
--- OUTSIDE RECORDS SUMMARY | 2025-01-01 08:09 | XMS_ITS | Patient Health Record ---
Author Organization [facility] Address [address] [id number] Care Team Providers Care Leverman Name Role Phone KleinSilvia Primary Care Provider Nicolás Miner Unavailable [phone] Allergies Allergen (clinical drug ingredient) Drug/Non Drug Allergy documented on EMR Reaction Allergy Type Onset Date Status sulfamethoxazole / trimethoprim Bactrim Unknown Drug Allergy Active Penicillin Unknown Drug Allergy Active Results Component Value Reference Range Notes Anti-Mullerian Hormone (AMH) -540010 Reviewed date:06/08/2024 01:02:12 PM Interpretation: Performing Lab:[facility] [place], [address] [place] [address], [place], Phone - [phone], Director - Davey Notes/Report: Anti-Mullerian Hormone (AMH) 1.97 For assays employing antibodies, the possibility exists for interference by heterophile antibodies in the samples.1 1.Morgan Laughlin. Interferences in Immunoassays - still a threat. Clin. Chem. 2000; 46: 8426-8838. This test was developed and its performance characteristics determined by [employer]. It has not been cleared or approved by the Food and Drug Administration. Reference Range: Females 26 - 30y: 1.03 - 11.10 Median 4.20 AMH concentrations of >= 1.06 ng/mL is correlated with a better response to ovarian stimulation, produced more retrievable oocytes and higher odds of live according to Christine et al. Fertility and Sterility. 2010: 94:6685-5199. The current AMH test method correlates with [...] diagnose or exclude an AMH-secreting ovarian tumor. Estrogens, Total-944320 Reviewed date:06/08/2024 01:02:12 PM Interpretation: Performing Lab:[facility] [place], Phone - [phone], Director Mk Mariscal Notes/Report: Estrogens, Total 116 Prepubertal < 40 Female Cycle: 1-10 Days 16 - 328 11-20 Days 34 - 501 21-30 Days 48 - 350 Post-Menopausal 40 - 244 Prolactin-446026 Reviewed date:06/08/2024 01:02:12 PM Interpretation: Performing Lab:[facility] [place], Phone - [phone], Director Mk Mariscal Notes/Report: Prolactin 15.2 4.8-33.4 ng/mL Progesterone-537992 Reviewed date:06/08/2024 01:02:12 PM Interpretation: Performing Lab:[facility] [place], Phone - [phone], Director Mk Mariscal Notes/Report: Progesterone 0.2 Follicular phase 0.1 - 0.9 Luteal phase 1.8 - 23.9 Ovulation phase 0.1 - 12.0 First trimester 11.0 - 44.3 Second trimester 25.4 - 83.3 Third trimester 58.7 - 214.0 Postmenopausal 0.0 - 0.1 FSH-[id number] Reviewed date:06/08/2024 01:02:11 PM Interpretation: Performing Lab:[facility] [place], Phone - [phone], Director Mk Mariscal Notes/Report: FSH 9.2 Adult Female Range Follicular phase 3.5 - 12.5 Ovulation phase 4.7 - 21.5 Luteal phase 1.7 - 7.7 Postmenopausal 25.8 - 134.8 Luteinizing Hormone(LH)-0042 83 Reviewed date:06/08/2024 01:02:11 PM Interpretation: Performing Lab[facility], Phone - [phone], Director Mk KWONJoflaco Notes/Report: LH 9.6 Adult Female Range Follicular phase 2.4 - 12.6 Ovulation phase 14.0 - 95.6 Luteal phase 1.0 - 11.4 Postmenopausal 7.7 - 58.5 Testosterone-[id number] Reviewed date:06/08/2024 01:02:11 PM Interpretation: Performing Lab:[facility] [place], Phone - [phone], Director - Davey Notes/Report: Testosterone 18 13-71 ng/dL Cortisol-[id number] Reviewed date:06/08/2024 01:02:11 PM Interpretation: Performing Lab:[facility] [address], Phone - [phone], Director - Davey Notes/Report: Cortisol 7.1 6.2-19.4 ug/dL Please Note: The reference interval and flagging for this test is for an AM collection. If this is a PM collection please use: Cortisol PM: 2.3-11.9 Iron and TIBC-[id number] Reviewed date:06/08/2024 01:02:12 PM Interpretation: Performing Lab:[facility] [place], Phone - [phone], Director - Davey Notes/Report: Iron Bind.Cap.(TIBC) 346 250-450 ug/dL UIBC 219 131-425 ug/dL Iron 127 27-159 ug/dL Iron Saturation 37 15-55 % Magnesium-556367 Reviewed date:06/08/2024 01:02:12 PM Interpretation: Performing Lab:[facility], Phone - [phone], - Davey Notes/Report: Magnesium 1.8 1.6-2.3 mg/dL Urinalysis, Complete-[id number] Reviewed date:06/08/2024 01:02:12 PM Interpretation: Performing Lab:[facility] [place], [address] [place] [address], Phone - [phone], - Davey Notes/Report: Specific [place] 1.023 1.005-1.030 pH 6.5 5.0-7.5 Urine-Color Yellow [...] None seen /lpf Bacteria Many None seen/Few Ferritin-124576 Reviewed date:06/08/2024 01:02:12 PM Interpretation: Performing Lab:[facility] [place], [address] [facility], Phone - [phone], Director - MDy Notes/Report: Ferritin 36 15-150 ng/mL CBC With Differential/Platel et-755553 Reviewed date:06/08/2024 01:02:12 PM Interpretation: Performing Lab:[facility] [place], [address] [place] [address], [place], Phone - [phone], Director - MDJoy Notes/Report: WBC 4.9 3.4-10.8 x10E3/uL RBC 4.21 [...] Grans (Abs) 0.0 0.0-0.1 x10E3/uL Vitamin D, 79-Jzqndtl-[id number] Reviewed date:06/08/2024 01:02:12 PM Interpretation: Performing Lab:[facility] [place], [address] [place] [address], Phone - [phone], Director - Davey Notes/Report: Vitamin D, 25-Hydroxy 37.5 30.0-100.0 ng/mL Vitamin D deficiency has been defined by the [place] of Medicine and an Endocrine Society practice guideline as a level of serum 25-OH vitamin D less than 20 ng/mL (1,2). The Endocrine Society went on to further define vitamin D insufficiency as a level between 21 and 29 ng/mL (2). 1. IOM ([place] of Medicine). 2010. Dietary reference intakes for calcium and D. [place]: The National Academies Press. 2. Abraham MF, Malu LEES, Windy SIDDIQUI, et al. Evaluation, treatment, and prevention of vitamin D deficiency: an Endocrine Society clinical practice guideline. JCEM. 2010; 96(7):1911-30. Albumin/Creatinine Ratio,Ur ne-002826 Reviewed date:06/08/2024 01:02:12 PM Interpretation: Performing Lab:[facility] [place], [address] [place] [address], Phone - [phone], Director - Davey Notes/Report: Creatinine, Urine 247.5 Not Estab. mg/dL Albumin, Urine 35.9 Not Estab. ug/mL Alb/Creat Ratio 15 0-29 mg/g creat Normal: 0 - 29 Moderately increased: 30 - 300 Severely increased: >300 HCV Antibody RFX to Quant PC R-[id number] Reviewed date:06/08/2024 01:02:12 PM Interpretation: Performing Lab:[facility] [place], [address] [place] [address], Phone - [phone], Director - Davey Notes/Report: HCV Ab Non Reactive Non Reactive Interpretation: Not infected with HCV unless early or acute infection is suspected (which may be delayed in an immunocompromised individual), or other evidence exists to indicate HCV infection. Comp. Metabolic Panel (14)-3 06433 Reviewed date:06/08/2024 01:02:12 PM Interpretation: Performing Lab:[facility] [place], [address] [place] [address], Phone - [phone], Director Mk Mariscal Notes/Report: Glucose 87 70-99 mg/dL BUN 10 [...] IU/L ALT (SGPT) 23 0-32 IU/L LP+Non-HDL Cholesterol-40410 5 Reviewed date:06/08/2024 01:02:13 PM Interpretation: Performing Lab:[facility] [place], [address] [place] [address], Phone - [phone], Director - MDJodry Notes/Report: Cholesterol, Total 156 100-199 mg/dL Triglycerides 48 0-149 mg/dL HDL Cholesterol 58 >39 mg/dL VLDL Cholesterol Amando 10 5-40 mg/dL LDL Chol Calc (NIH) 88 0-99 mg/dL Non-HDL Cholesterol 98 0-129 mg/dL ACTH, Plasma-448781 Reviewed date:06/08/2024 01:02:12 PM Interpretation: Performing Lab:[facility] [place], [address] [place] [address], Phone - [phone], Director - MDJodry Notes/Report: ACTH, Plasma 14.5 7.2-63.3 pg/mL ACTH referenc e interval for samples collected between 7 and 10 AM. UA/M w/rflx Culture, Routine -[id number] Reviewed date:06/08/2024 01:02:12 PM Interpretation: Performing Lab:[facility] [place], [address] [place] [address], Phone - [phone], Director - MDJodry Notes/Report: Specific [place] 1.012 1.005-1.030 pH 5.5 5.0-7.5 Urine-Color Yellow [...] Routine Final report Result 1 No growth Cortisol-308916 Reviewed date:09/05/2024 08:57:43 PM Interpretation: Performing Lab:[facility], Phone - [phone], Director - [facility] Notes/Report: Test(s) 514308-Whibxjgrzrmxvj; 542480-Exmhzpjtria; 949148-Almfptgo was developed and its performance characteristics determined by [facility]. It has not been cleared or approved by the Food and Drug Administration. Cortisol 7.8 6.2-19.4 ug/dL Please Note: The reference interval and flagging for this test is for an AM collection. If this is a PM collection please use: Cortisol PM: 2.3-11.9 Thyroid Peroxidase (TPO) Ab- 821063 Reviewed date:09/05/2024 08:57:43 PM Interpretation: Performing Lab:[facility] [address], Phone - [phone], Director - [facility] Notes/Report: Test(s) 967955-Zvidrowilhihmm; 727289-Pmtldapiwkw; 453549-Pxmedtoh was developed and its performance characteristics determined by [facility]. It has not been cleared or approved by the Food and Drug Administration. Thyroid Peroxidase (TPO) Ab <9 0-34 IU/mL Thyroglobulin Antibody-27159 5 Reviewed date:09/05/2024 08:57:43 PM Interpretation: Performing Lab:[facility] [address], Phone - [phone], Director - [facility] Notes/Report: Test(s) 306535-Dguuybydnnfteb; 858460-Zfidbgyrapy; 781637-Tsjlnqpg was developed and its performance characteristics determined by [facility]. It has not been cleared or approved by the Food and Drug Administration. Thyroglobulin Antibody 2.1 0.0-0.9 IU/mL Thyroglobulin Antibody measured by [employer] . It should be noted that the presence of thyroglobulin antibodies may not be pathogenic nor diagnostic, especially at very low levels. The assay oracle manufacturing consultant has found that four percent of individuals without evidence of thyroid disease or autoimmunity will have positive TgAb levels up to 4 IU/mL. Catecholamines, Plasma-25868 2 Reviewed date:09/05/2024 08:57:43 PM Interpretation: Performing Lab:[facility], Phone - [phone], Director - [facility] Notes/Report: Test(s) 796174-Muvzxqxlwbubni; 639518-Omnswmlofuh; 570536-Yhvpgwxr was developed and its performance characteristics determined by [facility]. It has not been cleared or approved by the Food and Drug Administration. Norepinephrine 246 115-524 pg/mL Epinephrine 42.1 0.0-55.4 pg/mL Dopamine <10.0 0.0-36.7 pg/mL Catecholamines, Plasma reference intervals based on patient in supine position for at least 20 minutes. TSH reflex to D5R-237362 Reviewed date:09/05/2024 08:57:43 PM Interpretation: Performing Lab:[facility] [address], Phone - [phone], Director - [facility] Notes/Report: Test(s) 353403-Ttcawxkndeluwi; 950012-Ipxueqnhxtn; 725041-Amkhcwnq was developed and its performance characteristics determined by [employer]. It has not been cleared or approved [...] and Electronically Signed by: Romulo Moy M.D. Amylase-[id number] Reviewed date:12/18/2024 08:37:13 PM Interpretation: Performing Lab:[facility], Phone - [phone], Director - [facility] Notes/Report: Amylase 60 31-110 U/L Lipase-556241 Reviewed date:12/18/2024 08:37:13 PM Interpretation: Performing Lab:[facility] [address], Phone - [phone], Director - [facility] Notes/Report: Lipase 22 14-72 U/L Urinalysis, Complete-759383 Reviewed date:12/18/2024 08:37:13 PM Interpretation: Performing Lab:[facility], Phone - [phone], Director - [facility] Notes/Report: Specific [place] 1.011 1.005-1.030 pH 6.5 5.0-7.5 Urine-Color Yellow Yellow Appearance Clear Clear WBC Esterase Negative Negative Protein Negative Negative/Trace Glucose Trace Negative Ketones Negative Negative Occult Blood Negative Negative Bilirubin Negative Negative Urobilinogen,Semi-Qn 0.2 0.2-1.0 mg/dL Nitrite, Urine Negative Negative Microscopic Examination Micr oscopic follows if indicated. Microscopic Examination See below: Micr oscopic was indicated and was performed. WBC 0-5 0 - 5 /hpf RBC None seen 0 - 2 /hpf Epithelial Cells (non renal) 0-10 0 - 10 /hpf Casts None seen None seen /lpf Bacteria Few None seen/Few CBC With Differential/Platel et-664505 Reviewed date:12/18/2024 08:37:14 PM Interpretation: Performing Lab:[facility] [address], Phone - [phone], [facility] Notes/Report: WBC 7.4 3.4-10.8 x10E3/uL RBC 4.33 3.77-5.28 x10E6/uL Hemoglobin 13.3 11.1-15.9 g/dL Hematocrit 40.9 34.0-46.6 % MCV 95 79-97 fL MCH 30.7 26.6-33.0 pg MCHC 32.5 31.5-35.7 g/dL RDW 11.7 11.7-15.4 % Platelets 273 150-450 x10E3/uL Neutrophils 65 Not Estab. % Lymphs 23 Not Estab. % Monocytes 9 Not Estab. % Eos 2 Not Estab. % Basos 1 Not Estab. % Neutrophils (Absolute) 4.8 1.4-7.0 x10E3/uL Lymphs (Absolute) 1.7 0.7-3.1 x10E3/uL Monocytes(Absolute) 0.7 0.1-0.9 x10E3/uL Eos (Absolute) 0.2 0.0-0.4 x10E3/uL Baso (Absolute) 0.1 0.0-0.2 x10E3/uL Immature Granulocytes 0 Not Estab. % Immature Grans (Abs) 0.0 0.0-0.1 x10E3/uL Comp. Metabolic Panel (14)-3 Reviewed date:12/18/2024 08:37:14 PM Interpretation: Performing Lab:[facility] [place], [address], [place], Phone - [phone], Director - Davey Notes/Report: Glucose 96 70-99 mg/dL BUN 7 6-20 mg/dL Creatinine 0.85 0.57-1.00 mg/dL eGFR 96 >59 mL/min/1.73 BUN/Creatinine Ratio 8 9-23 Sodium 136 134-144 mmol/L Potassium 4.9 3.5-5.2 mmol/L Chloride 100 96-106 mmol/L Carbon Dioxide, Total 21 20-29 mmol/L Calcium 9.8 8.7-10.2 mg/dL Protein, Total 7.0 6.0-8.5 g/dL Albumin 4.6 4.0-5.0 g/dL Globulin, Total 2.4 1.5-4.5 g/dL Bilirubin, Total 0.3 0.0-1.2 mg/dL Alkaline Phosphatase 65 41-116 IU/L AST (SGOT) 15 0-40 IU/L ALT (SGPT) 9 0-32 IU/L Reason For Referral Reason lordosis of cervical spine and neck pain Faxed Diagnosis 1 Cervicalgia (M54.2) Referral Organization [facility] Referring Provider First Name Silvia Referring Provider Last Name Ernie Referring Provider Speciality Nurse Arabella maciel Referred Provider Sanjana Balderas Referred Provider Specialty Pain Medicin e General Notes Shania BARRETO 02:28:06 PM > faxed, Su BARRETO 11/14/2024 01:40:46 PM >requested notes, Su BARRETO 11/16/2024 09:14:44 AM >Booked 12/31/2024 Referral Priority Routine Reason Can we please refer patient to [facility] given father's history of being positive BRCA2 gene with metastatic pancreatic cancer Diagnosis 1 Family history of ma lignant neoplasm of digestive organs (Z80.0) Referral Organization [facility] Referring Provider First Name Silvia Referring Provider Last Name Ernie Referring Provider Speciality Nurse Arabella maciel Referred Provider Specialty Oncology General Notes Shania BARRETO 03:20:41 PM > waiting for results Dr. Miner Referral Priority Routine Medications Medication SIG (Take, Route, Frequency, Duration) Notes Start Date End Date Status Magnesium Active Propranolol HCl 20 MG Take 1-2 tablets a s needed for headaches Oral twice a day; Duration: 90 days Active Retin-A 0.025 % 1 application in the evening to face Externally Once a day 02/07/2024 Active Emgality 120 MG/ML INJECT 1ML SUBCUTANEOUS ONCE A MONTH; Duration: 28 Active Spironolactone 50 MG 1 tablet Orally Onc e a day Active cloNIDine HCl 0.1 MG TAKE 2 TABLETS BY MOUTH EVERY DAY; Duration: 90 Active Emgality Active Cromolyn Sodium 100 MG/5ML Oral; Duratio n: 72 Days Active buPROPion HCl ER (XL) 150 MG TAKE 1 TABL ET BY MOUTH DAILY IN THE MORNING; Duration: 30 Active Naltrexone HCl 50 MG 4.5 mg Orally Once a day Active LORazepam 0.5 MG 1 tablet as needed daily for anxiety/panic Orally Once a day; Duration: 14 days 12/12/2024 Active Ondansetron 4 MG 1 tablet on the tong ue and allow to dissolve Orally Once a day; Duration: 14 days 04/24/2022 Active Vyvanse 40 MG 1 capsule in the morning Orally Once a day; Duration: 30 days 12/25/2024 Active Dexmethylphenidate HCl 10 MG 1 tablet Or al Once a Day; Duration: 30 days 12/25/2024 01/23/2025 Active Antihistamine Active Probiotic Active Vitamin D Active Immunizations Vaccine Route Administration Date Status Comme nts Influenza-Afluria (IIV4) Unknown 01/16/2022 Administere d *Td Unknown 05/04/2023 Refused *Influenza-Flublok IM Intramuscular 12/26/2024 Administere d Social History Alcohol Screen (Audit-C) [...] Status W/U Status Risk Notes Problem Rickettsiosis (594356245) Rickettsiosis, unspecified (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) Active confirmed Problem 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) Active confirmed Problem Vitamin D deficiency (47350762) Vitamin D deficiency, unspecified (E55.9) Active confirmed Problem Mild recurrent major depression (92683529) Major depressive disorder, recurrent, mild (F33.0) Active confirmed Problem Generalized anxiety disorder (78468720) Generalized anxiety disorder (F41.1) Active confirmed Problem Attention deficit hyperactivity disorder, combined type (92262531) Attention-deficit hyperactivity disorder, combined type (F90.2) Active confirmed Problem Chronic intractable migraine without aura (243242789244641) Chronic migraine without aura, intractable, without status migrainosus (G43.719) Active confirmed Problem Essential hypertension (95941920) Essential (primary) hypertension (I10) Active confirmed Problem Hypermobility syndrome (76745796) Hypermobility syndrome (M35.7) Active confirmed Problem Lordosis finding (finding) (759103326) Lordosis, unspecified, site unspecified (M40.50) Active confirmed Problem Cervical spine instability (finding) (971317411) Spinal instabilities, cervical region (M53.2X2) Active confirmed Problem Cervicalgia (90410377) Cervicalgia (M54.2) Active confirmed Problem Intermenstrual bleeding - irregular (78537625) Excessive and frequent menstruation with irregular cycle (N92.1) Active confirmed Problem High antibody titer (040733263) Raised antibody titer (R76.0) Active confirmed Problem Mast cell activation syndrome (disorder) (3115078613030632 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 Problem Premenstrual dysphoric disorder (690397) Premenstrual dysphoric disorder (F32.81) Active confirmed Problem Postural orthostatic tachycardia syndrome (disorder) (391933027) Postural orthostatic tachycardia syndrome [POTS] (G90.A) Active confirmed Problem Refractory migraine with aura (disorder) (496360379) Chronic migraine with aura, intractable, without status migrainosus (G43.E19) Active confirmed Problem Marfan's syndrome (13264374) Marfan syndrome with other cardiovascular manifestations (Q87.418) Active confirmed Vital Signs Heart Rate 83 /min 12/26/2024 Temperature 96.7 degrees Fahrenheit 12/26/2024 Oximetry 97 % 12/26/2024 Blood pressure diastolic 68 mm Hg 08/27/2024 Height 67.5 in 12/26/2024 Blood pressure systolic 118 mm Hg 08/27/2024 Weight 146 lbs 12/26/2024 BMI 22.53 kg/m2 12/26/2024 Encounters Encounter Location Date Provider Diagnosis Nicolás [facility] MD [address] [id number] 03/28/2024 Silvia Miner MD [address] [id number] 04/04/2024 Silvia Miner MD [address] [id number] 05/07/2024 Silvia Miner MD [address] [id number] 06/08/2024 Silvia Klein Other fatigue R53.83 Nicolás [facility]er MD [address] [id number] 07/04/2024 [facility] [address] [id number] 08/14/2024 Silvia Klein [facility] [address] [id number] 09/05/2024 Islvia Klein Other adrenocortical insufficiency E27.49 [facility] [address] [id number] 09/18/2024 Silvia Klein [facility] [address] [id number] 09/19/2024 Silvia Klein [facility] [address] [id number] 11/20/2024 Silvia Klein [facility] [address] [place] [address] [id number] 12/18/2024 Silvia Klein [facility] [address] [place] [address] [id number] 12/26/2024 Silvia Klein [facility] [address] [place] [address] [id number] 01/23/2024 Silvia Klein Chronic migraine without aura, intractable, without status migrainosus G43.719 [facility] [address] [place] [address] [id number] 01/30/2024 Silvia Klein Attention-deficit hyperactivity disorder, combined type F90.2 [facility] [address] [place] [address] [id number] 02/22/2024 Silvia Klein [facility] [address] [place] [address] [id number] 02/22/2024 Silvia Klein Chronic migraine without aura, intractable, without status migrainosus G43.719 [facility] [address] [id number] 03/02/2024 Nicolás Miner Attention-deficit hyperactivity disorder, combined type F90.2 [facility] [address] [place] [address] [id number] 03/27/2024 Silvia Klein Attention-deficit hyperactivity disorder, combined type F90.2 [facility] [address] [place] [address] [id number] 03/29/2024 [facility] [address] [place] [address] [id number] 04/19/2024 Silvia Klein Attention-deficit hyperactivity disorder, combined type F90.2 Nicolás [facility] MD [address] [id number] 05/07/2024 Silvia Klein Nicolás [facility]er MD [address] [id number] 05/27/2024 Silvia Klein Attention-deficit hyperactivity disorder, combined type F90.2 Nicolás [facility] MD [address] [id number] 06/25/2024 Nicolás Miner Attention-deficit hyperactivity disorder, combined type F90.2 Nicolás [facility] MD [address] [id number] 07/23/2024 Silvia Klein Nicolás [facility]er MD [address] [id number] 07/31/2024 Silvia Klein Attention-deficit hyperactivity disorder, combined type F90.2 Nicolás Miner MD [address] [id number] 07/31/2024 Silvia Klein Nicolás Miner MD [address] [id number] 09/17/2024 Silvia Klein Attention-deficit hyperactivity disorder, combined type F90.2 Nicolás Miner MD [address] [id number] 09/20/2024 Silvia Klein Nicolás Miner MD [address] [id number] 10/25/2024 Nicolás Miner Attention-deficit hyperactivity disorder, combined type F90.2 Nicolás Miner MD [address] [id number] 10/25/2024 Silvia Klein Nicolás Miner MD [address] [id number] 11/15/2024 Silvia Klein Generalized anxiety disorder F41.1 Nicolás Miner MD [address] [id number] 11/22/2024 Silvia Klein Nicolás Miner MD [address] [id number] 11/26/2024 Silvia Klein Attention-deficit hyperactivity disorder, combined type F90.2 and Generalized anxiety disorder F41.1 Nicolás Miner MD [address] [id number] 12/05/2024 Silvia Klein Nicolás [facility] MD [address] [id number] 12/07/2024 Silvia Klein Nicolás Miner MD [address] [id number] 12/23/2024 Silvia Klein Attention-deficit hyperactivity disorder, combined type F90.2 Nicolás Miner MD [address] [id number] 07/03/2024 Silvia Klein Chronic migraine wit h aura, intractable, without status migrainosus G43.E19 ; Spinal instabilities, cervical region M53.2X2 ; Other fatigue R53.83 ; Hypermobility syndrome M35.7 ; Essential (primary) hypertension I10 and Chloasma L81.1 Nicolás Miner MD [address] [id number] 08/27/2024 Silvia Klein Cervicalgia M54.2 ; Lordosis, unspecified, site unspecified M40.50 ; Spinal instabilities, cervical region M53.2X2 ; Chronic migraine with aura, intractable, without status migrainosus G43.E19 ; Other fatigue R53.83 ; Chloasma L81.1 ; Major depressive disorder, recurrent, mild F33.0 and Attention-deficit hyperactivity disorder, combined type F90.2 Nicolás Miner MD [address] [id number] 12/12/2024 Silvia Klein Family history of malignant neoplasm of digestive organs Z80.0 ; Right upper quadrant pain R10.11 and Disappearance and of family member Z63.4 Nicolás Miner MD [address] [id number] 01/17/2024 Silvia Klein Chronic migraine without aura, intractable, without status migrainosus G43.719 Nicolás Miner MD [address] [id number] 05/24/2024 Silvia Klein Excessive and freque nt menstruation with irregular cycle N92.1 ; Chronic migraine without aura, intractable, without status migrainosus G43.719 ; Postural orthostatic tachycardia syndrome [POTS] G90.A ; Hypermobility syndrome M35.7 and Essential (primary) hypertension I10 Nicolás Miner MD [address] [id number] 05/07/2024 Silvia Klein Encounter for genera l [...] neoplasm of cervix Z12.4 Nicolás Miner MD [address] [id number] 02/07/2024 Silvia Klein Chloasma L81.1 ; Chronic migraine without aura, intractable, without status migrainosus G43.719 ; Attention-deficit hyperactivity disorder, combined type F90.2 ; Hypermobility syndrome M35.7 and Postural orthostatic tachycardia syndrome [POTS] G90.A Nicolás Miner MD [address] [phone] 12/26/2024 Silvia Klein Family history of malignant neoplasm of digestive organs Z80.0 ; Right upper quadrant pain R10.11 ; Cervicalgia M54.2 ; Spinal instabilities, cervical region M53.2X2 ; Chronic migraine with aura, intractable, without status migrainosus G43.E19 ; Major depressive disorder, recurrent, mild F33.0 ; Chloasma L81.1 and Encounter for immunization Z23 Assessments Encounter Date Diagnosis (ICD Code) Assessment Notes Treatment Notes Treatment Clinical Notes Section Notes 01/17/2024 Chronic migraine without aura, intractable, without [...] provider as well as her neurologist and Parking 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 Patient has seen improvement [...] will be for annual in 1 year 05/27/2024 Attention-deficit hyperactivity disorder, combined type (ICD-10 - F90.2) 06/08/2024 Other fatigue (ICD-10 - R53.83) 06/25/2024 Attention-deficit hyperactivity disorder, combined type (ICD-10 - F90.2) 05/24/2024 Excessive and frequent menstruation with irregular [...] of spironolactone. 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 Pt would benefit from a consult with Dr. Balderas to discuss injection/treatment options for her continued pain 03/27/2024 Attention-deficit hyperactivity disorder, combined type (ICD-10 - F90.2) 12/12/2024 Right upper quadrant pain (ICD-10 - R10.11) Discussed with patient her father's new diagnosis with being positive BRCA2 and his recent due to metastatic pancreatic cancer. Patient does have intermittent episodes of right upper quadrant pain and tenderness. Due to this would like to obtain a baseline CT scan of abdomen and pelvis given the potential of patient having a BRCA2 gene mutation. Would also like patient to be seen for further genetic testing and referral placed to [facility]. Will also obtain lab work today. Patient is scheduled to be seen in December and we will reassess symptoms and review all results if available during that appointment 12/12/2024 Family history of malignant neoplasm of digestive organs (ICD-10 - Z80.0) Patient completed a myRisk kit in office today due to her father's new diagnosis of metastatic stage IV pancreatic cancer as well as being positive for BRCA2 gene. Patient's father earlier this week and she is processing the loss of her father while ensuring she does not also have the BRCA2 gene. Patient states she was seen by [facility], which we did refer to patient, but we have never received notes. Patient states that she did ask [facility] to complete BRCA2 gene testing as a 23 and many suggested she had a false positive BRCA2 finding. Encouraged patient to provide our office with all notes to review given this potential diagnosis and gene finding years before she became a patient here. 12/23/2024 Attention-deficit hyperactivity disorder, combined type (ICD-10 - F90.2) 12/26/2024 Right upper quadrant pain (ICD-10 - R10.11) Patient was recently notified that her CT scan of her abdomen was denied. Reviewed with patient her father is diagnosis of positive BRCA2 gene and metastatic pancreatic cancer. Would like patient to obtain this CT scan and discussed with patient that our office will work on identifying the underlying cause for patient's denial 12/26/2024 Family history of malignant neoplasm of digestive organs (ICD-10 - Z80.0) Patient completed a myRisk kit in office today due to her father's new diagnosis of metastatic stage IV pancreatic cancer as well as being positive for BRCA2 gene. Patient's father earlier this week and she is processing the loss of her father while ensuring she does not also have the BRCA2 gene. Patient states she was seen by [facility], which we did refer to patient, but we have never received notes. Patient states that she did ask [facility] to complete BRCA2 gene testing as a 23 and many suggested she had a false positive BRCA2 finding. Encouraged patient to provide our office with all notes to review given this potential diagnosis and gene finding years before she became a patient here. 12/26/2024 Cervicalgia (ICD-10 - M54.2) Reviewed with pt her cervical MR which did reveal straightening of cervical spine, which could be an underlying factor for her cervical next pain. Patient is working with physical therapy as well as receiving Botox for migraines and she is finding this helpful in managing her neck pain. 12/12/2024 Disappearance and of family member (ICD-10 - Z63.4) Patient is working through the loss of her father and will refill patient's Ativan to assist with upcoming services at the end of the week. 11/26/2024 Generalized anxiety disorder (ICD-10 - F41.1) 08/27/2024 Spinal instabilities, cervical region (ICD-10 - M53.2X2) I suspect that patient's persistent headache and migraine symptoms that are occurring more days of the week than not may be due to some degree of cervical instability causing cervicogenic headaches. 07/03/2024 Other fatigue (ICD-10 - R53.83) Patient [...] needed for breakthrough focus and concentration issues. 02/07/2024 Hypermobility syndrome (ICD-10 - M35.7) Patient is followed by [facility] for concerns of [...] given increased heart rate episodes and palpitations 08/27/2024 Chronic migraine with aura, intractable, without [...] is not a common presentation for auras 12/26/2024 Spinal instabilities, cervical region (ICD-10 - M53.2X2) Discussed again with patient her persistent headaches/migraine symptoms that I do suspect are due to cervical instability and cervicogenic headache. She is working with physical therapy and does find this helpful in managing her headache symptoms 12/26/2024 Chronic migraine with aura, intractable, without status migrainosus (ICD-10 - G43.E19) Reviewed with kalyani t her headache/migraine days, although patient states they have improved with use of Emgality, LDN, propranolol, and Botox treatments. Patient states she has been taking 20 mg of propranolol though and due to this would like to increase patient's propranolol dosing. Would like patient to have the option to take 20 to 40 mg 1-2 times a day to see if this can further manage her headache symptoms. Plan will be for follow-up in 3 months, or sooner should she feel as though her headache symptoms and severity are worsening despite her current treatments 08/27/2024 Other fatigue (ICD-10 - R53.83) Patient continues to have increased fatigue symptoms despite sleeping for good overnight. Recent lab work did reveal slight elevation in antithyroglobulin antibodies and discussed that we will continue to monitor this but it does not seem consistent with that Cornelius's at this time, despite patient's concerns of mother's history of Cornelius's. 07/03/2024 Hypermobility syndrome (ICD-10 - M35.7) Patient is followed by [facility] clinic and genetics for concerns of H-EDS [...] this can further assist in pain/symptom management 05/24/2024 Hypermobility syndrome (ICD-10 - M35.7) Patient is followed by [facility] clinic and genetics for concerns of H-EDS [...] of the year to obtain an apt 05/07/2024 Hypermobility syndrome (ICD-10 - M35.7) Patient is followed by [facility] clinic and genetics for concerns of H-EDS with mass cell and potential POTS. Discussed that her headaches could be stemming from cervical instability due to H-EDS. Encouraged pt to begin continue with EDS based PT at home to help strengthen the muscles in her shoulders/back to help manage any potential worsening headache symptoms stemming for her neck. 05/24/2024 Essential (primary) hypertension (ICD-10 - I10) [...] levels than what patient was getting at [facility]. 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 Patient states she is appropriately managing the loss of her father and feels as though her medication dosages are correct and she has no concerns that she believes she needs to increase or change her medications at this time 12/26/2024 Chloasma (ICD-10 - L81.1) Patient is followed by dermatology and continues to take spironolactone for underlying melasma treatment. She does have a follow-up tomorrow and is requesting that our office take over her medication regimen as dermatology often makes her go in for follow-up visits frequently to obtain her refills. Discussed with patient that I would like her to see dermatology to discuss bleaching medication that she is referring to for melasma and update her office with medication regimen that dermatology is requesting for further review and to determine if patient should remain on these treatments or begin these treatments for melasma treatment. Patient agreeable with this plan 08/27/2024 Major depressive disorder, recurrent, mild (ICD-10 [...] on fluoxetine with good relief of symptoms 07/03/2024 Chloasma (ICD-10 - L81.1) Patient continues to take spironolactone for underlying melasma treatment. Discussed with patient her concerns of using spironolactone long-term and plan will be for patient to decrease to 50 mg. If skin changes do not occur with lowering this dose, could consider stopping this treatment all together at next follow up. Patient is followed by [facility] [facility] and states that she will discuss this with dermatology as well 05/07/2024 Essential (primary) hypertension (ICD-10 - I10) [...] blood pressure readings at next follow-up appointment 12/26/2024 Encounter for immunization (ICD-10 - Z23) Patient agreeable to receive her flu shot in office today 08/27/2024 Attention-deficit hyperactivity disorder, combined type (ICD-10 - F90.2) Patient feels stable and well-controlled on her current Vyvanse and dexmethylphenidate dosing. Patient to remain on current regimen and will refill medication as requested today 05/07/2024 Vitamin D deficiency, unspecified (ICD-10 - [...] he r Pap smear in 2021 through [facility]. Patient is aware she is due for [...] with Pap smears 01/17/2024 Other 05/07/2024 Other 12/26/2024 Other See plan above Plan Of Treatment Pending Test Test Name Order Date Ultrasound : Breast, right 05/12/2022 CORTISOL 30 MIN POST 09/05/2024 CORTISOL 60 MIN POST 09/05/2024 HOLTER MONITOR, 7 DAYS, APPLICATION 07/07 HOLTER MONITOR, 7 DAYS, INTERPRETATION 0 09/07/2023 CT Abdomen & Pelvis 12/12/2024 Cortisol-[id number] 06/08/2024 Cortisol, ACTH Stimulation-[id number] 2024 Next Appt Details Provider Name:Silvia Klein , 03/26/2025 09:00:00 AM, [address] [place] [address], [address], [phone], Provider Name:Silvia Klein , 05/16/2025 09:00:00 AM, [address] [place] [address], [address], [phone], Insurance Providers Payer Name Payer Address Payer Phone Subscriber Number Group Number Insured Name Patient Relationship to Insured Coverage Start Date Coverage End Date [facility] [address] [place] [address] [id number] Elvira Guido Self - patient is the insured Medical (General) History Medical History History ICD Code ADHD Migraines (since childhood) Elevated TPO antibody Genetic testing through [employer] - revealed potential BRCA 2 gene Surgical History Surgery Date(Month/Year) Appendix 2013 Hospitalization History Reason Date(Month/Year) Appendix 2013
--- OUTSIDE RECORDS SUMMARY | 2025-01-01 08:09 | XMS_ITS | Encounter Summary ---
Author Organization [facility] Address [address] [place] [phone] Care Team Providers Care Strategic Planning Specialist Name Role Phone Unavailable Primary Care Provider Unavailabl e Encounter Details Date Type Department Care Team (Late st Contact Info) Description 11/22/2023 Scanned Document [facility] [address] [place] [phone] Provider, Historical . Social History Tobacco Use [...]
--- OUTSIDE RECORDS SUMMARY | 2025-01-01 08:10 | XMS_ITS | Encounter Summary ---
Author Organization [facility] Address [address] [place] [phone] Care Team Providers Care Alarm Investigator Name Role Phone Unavailable Primary Care Provider Unavailabl e Encounter Details Date Type Department Care Team (Late st Contact Info) Description 12/15/2023 Scanned Document [facility] [address] [phone] Provider, historical . Social History Tobacco Use [...]
--- OUTSIDE RECORDS SUMMARY | 2025-01-01 08:10 | XMS_ITS | Clinical Summary ---
Author Organization [address] Address [address] [place] [phone] Phone Care Team Providers Care Law Enforcement Instructor Name Role Phone Unavailable Primary Care [...] 90 07/04/2023 12:57 PM EDT Temperature 36.7 C (98.1 F) 07/04/2023 12:57 PM EDT Respiratory Rate - - Oxygen Saturation 100% [...] Tetanus adult (Td q 10,TDAP once) 2016 Influenza vaccine 10/05/2024 01/16/2022 Covid-19 vaccine series (2024- season) 2024 RSV Immunization (1 - 1-dose 75+ series) 2071 Meningococcal B Vaccine Aged Out No l onger eligible based on patient's age to complete this topic Meningococcal Vaccine Aged Out No jeanine alireza eligible based on patient's age to complete this topic Pneumococcal Vaccine (2 - 49 years) Aged Out No longer eligible b ased on patient's age to complete this topic Insurance [employer] OPEN ACCESS PLAN [employer] OPEN ACCESS PLAN [email or web address] OPEN ACCESS PLAN
== END 2025-01-01 08:40 | disposition home or self-care (01) ==
LOC: HO.HSMS 08:02
PROVIDERS: PCP Nurse Practitioner Family; Visit Provider Psychiatry & Neurology Neurology
DX: G43.719 Chronic migraine without aura, intractable, without status migrainosus (principal)
CPT/HCPCS: 64615; 99499

== ENCOUNTER → 2025-01-01 08:01 | Outpatient (BNVA) | payer OTHER, SELFPAY | PROVIDERS: PCP Nurse Practitioner Family; Visit Provider Psychiatry & Neurology Neurology | DX: G43.719 Chronic migraine without aura, intractable, without status migrainosus (principal) | CPT/HCPCS: 64615; J0585 ==

== ENCOUNTER 2025-02-22 08:00 | Outpatient (AMB) | payer BC, SELFPAY ==
--- OUTSIDE RECORDS SUMMARY | 2025-02-20 14:35 | XMS_ITS ---
Author Organization Nicolás Miner MD Address [address] [place] [phone] Care Team Providers Care Sales Development Specialist Name Role Phone Silvia Klein Primary Care [...] Orally Once a day; Duration: 30 days 02/18/2025 Active Dexmethylphenidate HCl 10 MG 1 tablet Or al Once a Day; Duration: 30 days 02/18/2025 03/22/2025 Active Encounters Encounter Location Date Provider Diagnosis Nicolás Miner MD [address] [phone] 02/20/2025 Silvia Klein Attention-deficit hyperactivity disorder, combined type F90.2 Assessments Encounter Date Diagnosis (ICD Code) Assessment Notes Treatment Notes Treatment Clinical Notes Section Notes 02/20/2025 Attention-deficit hyperactivity disorder, combined type (ICD-10 - F90.2) Plan Of Treatment Medication Medication Name Sig Start Date Stop Date Notes Vyvanse 40 MG 1 capsule in the mor tomer Orally Once a day; Duration: 30 days 02/18/2025 Dexmethylphenidate HCl 10 MG 1 tablet Or al Once a Day; Duration: 30 days 02/18/2025 03/22/2025 Next Appt Details Provider Name:Silvia Klein , 03/26/2025 09:00:00 AM, [address], [address], [phone], Provider Name:Silvia Klein , 05/16/2025 09:00:00 AM, [address] [place] [address], [place] [address], [place], [place], [phone], Progress Notes * Srikanth VILLEGASeDOB:1995 (29 yo F)Acc No.[id number]:02/20/2025 Patient: Elvira SCOTT :1995 A ge:29 Y S ex:Female Address:[address] [place] [address], [place], [phone] * Refills Refill Vyvanse Capsule, 40 MG, Orally, 30 Capsule, 1 capsule in the morning, Once a day, 30 days, Refills=0 Refill Dexmethylphenidate HCl Tablet, 10 MG, Oral, 30 Tablet, 1 tablet, Once a Day, 30 days, Refills=0 Subjective: * Chief Complaints: * N ew Refill Request * Medical History: * Surgical History: * Hospitalization/Major Diagno stic Procedure: * Medications: * Allergies: P enicillinBactrimno[Allergies Verified] Objective: * Vitals: Past Vitals:* 12/26/2024 Temp:96.7F, HR:83/min, Wt:14 6lbs, BMI:22.53Index, Ht:67.5in, Oxygen sat %:97% * 12/12/2024 Temp:96.6F, HR:87/min, Wt:14 7lbs, BMI:22.68Index, Ht:67.5in, Oxygen sat %:98% * 08/27/2024 Temp:96.3F, HR:73/min, BP:11 8/68mm Hg, Wt:147lbs, BMI:22.68Index, Ht:67.5in, Oxygen sat %:98% * Physical Examination: Assessment: * Assessment: 1. A ttention-deficit hyperactivity disorder, combined type - F90.2 Plan: * Treatment: * Procedure Codes: * * Date:
--- OUTSIDE RECORDS SUMMARY | 2025-02-21 11:28 | XMS_ITS ---
Author Organization Nicolás Miner MD Address [address] [place] [phone] Care Team Providers Care Tobacco Drying Machine Operator Name Role Phone Silvia Klein Primary Care Provider Allergies Allergen (clinical drug ingredient) Drug/Non Drug Allergy documented on EMR Reaction Allergy Type Onset Date Status sulfamethoxazole / trimethoprim Bactrim Unknown Drug Allergy Active Penicillin Unknown Drug Allergy Active REASON FOR VISIT Refill Request Medications Medication SIG (Take, Route, Fr equency, Duration) Notes Start Date End Date Status Emgality 120 MG/ML as directed Subcutan eous once a month; Duration: 30 days Active Encounters Encounter Location Date Provider Diagnosis Nicolás Miner MD [address] [place] [phone] 02/21/2025 Silvia Klein Plan Of Treatment Medication Medication Name Sig Start Date Stop Date Notes Emgality 120 MG/ML as directed Subcutan eous once a month; Duration: 30 days Next Appt Details Provider Name:Silvia Klein , 03/26/2025 09:00:00 AM, [address] [place] [address], [phone], Provider Name:Silvia Klein , 05/16/2025 09:00:00 AM, [address] [place] [address], [phone], Progress Notes * Srikanth VILLEGASeDOB:1995 (29 yo F)Acc No.[id number]:02/21/2025 Patient: Galen VelazquezElvira BOSTON :1995 A ge:29 Y S ex:Female Address: [address], [place], [phone] * Refills Refill Emgality Solution Auto-injector, 120 MG/ML, Subcutaneous, 1, as directed, once a month, 30 days, Refills=3 Subjective: * Chief Complaints: * R efill Request * Medical History: * Surgical History: * Hospitalization/Major Diagno stic Procedure: * Medications: * Allergies: P enicillinBactrimno[Allergies Verified] Objective: * Vitals: Past Vitals:* 12/26/2024 Temp:96.7F, HR:83/min, Wt:14 6lbs, BMI:22.53Index, Ht:67.5in, Oxygen sat %:97% * 12/12/2024 Temp:96.6F, HR:87/min, Wt:14 7lbs, BMI:22.68Index, Ht:67.5in, Oxygen sat %:98% * 08/27/2024 Temp:96.3F, HR:73/min, BP:11 8/68mm Hg, Wt:147lbs, BMI:22.68Index, Ht:67.5in, Oxygen sat %:98% * Physical Examination: Assessment: Plan: * Treatment: * Procedure Codes: * true * Date: Generated for Collin allen/Nancy/Kevin on: 04/25/2024 08:04 AM EST
--- OUTSIDE RECORDS SUMMARY | 2025-02-22 08:04 | XMS_ITS | Encounter Summary ---
Author Organization [facility] Address [address] [place] [phone] Care Team Providers Care Food Safety Manager Name Role Phone Unavailable Primary Care Provider Unavailabl e Encounter Details Date Type Department Care Team (Late st Contact Info) Description 11/22/2023 Scanned Document [facility] [address] [place] [phone] Provider, Historical . Social History Tobacco Use [...]
--- OUTSIDE RECORDS SUMMARY | 2025-02-22 08:04 | XMS_ITS | Clinical Summary ---
Author Organization [address] Address [address] [place] [phone] Phone Care Team Providers Care Engineering Laboratory Technician Name Role Phone Unavailable Primary Care Provider [...] patient's age to complete this topic Insurance [employer] OPEN ACCESS PLAN [employer] OPEN ACCESS PLAN [employer] OPEN ACCESS PLAN
--- OUTSIDE RECORDS SUMMARY | 2025-02-22 08:04 | XMS_ITS | Patient Health Record ---
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 Name Role Phone Silvia Klein Primary Care Provider [phone] Nicolás Miner Unavailable [phone] Allergies Allergen (clinical drug ingredient) Drug/Non Drug Allergy documented on EMR Reaction Allergy Type Onset Date Status sulfamethoxazole / trimethoprim Bactrim Unknown Drug Allergy Active Penicillin Unknown Drug Allergy Active Results Component Value Reference Range Notes Cortisol-[id number] Reviewed date:06/08/2024 01:02:11 PM Interpretation: Performing Lab:[facility], [facility], Phone - [phone], Director - Davey Notes/Report: Cortisol 7.1 6.2-19.4 ug/dL Please Note: The reference interval and flagging for this test is for an AM collection. If this is a PM collection please use: Cortisol PM: 2.3-11.9 Testosterone-[id number] Reviewed date:06/08/2024 01:02:11 PM Interpretation: Performing Lab:[facility], [address] [facility] [place], Phone - [phone], Director - Davey Notes/Report: Testosterone 18 13-71 ng/dL Luteinizing Hormone(LH)-0042 83 Reviewed date:06/08/2024 01:02:11 PM Interpretation: Performing Lab:[facility], [address] [facility], Phone - [phone], Director - Davey Notes/Report: LH 9.6 Adult Female Range Follicular phase 2.4 - 12.6 Ovulation phase 14.0 - 95.6 Luteal phase 1.0 - 11.4 Postmenopausal 7.7 - 58.5 FSH-150087 Reviewed date:06/08/2024 01:02:11 PM Interpretation: Performing Lab:Donato Higgins [address] [place] [address], Phone - [phone], Director - Jordandrflaco Notes/Report: FSH 9.2 Adult Female Range Follicular phase 3.5 - 12.5 Ovulation phase 4.7 - 21.5 Luteal phase 1.7 - 7.7 Postmenopausal 25.8 - 134.8 Progesterone-[id number] Reviewed date:06/08/2024 01:02:12 PM Interpretation: Performing Lab:[facility] [address] [place] [address], Phone - [phone], Director - Davey Notes/Report: Progesterone 0.2 Follicular phase 0.1 - 0.9 Luteal phase 1.8 - 23.9 Ovulation phase 0.1 - 12.0 First trimester 11.0 - 44.3 Second trimester 25.4 - 83.3 Third trimester 58.7 - 214.0 Postmenopausal 0.0 - 0.1 ACTH, Plasma-[id number] Reviewed date:06/08/2024 01:02:12 PM Interpretation: Performing Lab:[facility] [address] [place] [address], Phone - [phone], Director - Davey Notes/Report: ACTH, Plasma 14.5 7.2-63.3 pg/mL ACTH referenc e interval for samples collected between 7 and 10 AM. Prolactin-999265 Reviewed date:06/08/2024 01:02:12 PM Interpretation: Performing Lab:[facility] [address] [place] [address], Phone - [phone], Director - Jordandry Notes/Report: Prolactin 15.2 4.8-33.4 ng/mL Estrogens, Total-[id number] Reviewed date:06/08/2024 01:02:12 PM Interpretation: Performing Lab:[facility] [address] [place] [address], Phone - [phone], Director - Jordandry Notes/Report: Estrogens, Total 116 Prepubertal < 40 Female Cycle: 1-10 Days 16 - 328 11-20 Days 34 - 501 21-30 Days 48 - 350 Post-Menopausal 40 - 244 UA/M w/rflx Culture, Routine -[id number] Reviewed date:06/08/2024 01:02:12 PM Interpretation: Performing Lab:[facility] [place], [address] [facility] [place], Phone - [phone], Director - Davey Notes/Report: Specific [place] 1.012 1.005-1.030 pH 5.5 5.0-7.5 Urine-Color Yellow [...] Result 1 No growth Anti-Mullerian Hormone (AMH) -[id number] Reviewed date:06/08/2024 01:02:12 PM Interpretation: Performing Lab:[facility] [place], [address] [facility] [place], Phone - [phone], Director - Davey Notes/Report: Anti-Mullerian Hormone (AMH) 1.97 For assays employing antibodies, the possibility exists for interference by heterophile antibodies in the samples.1 1.Morgan Pryor Interferences in Immunoassays - still a threat. Clin. Chem. 2000; 46: 5452-5460. This test was developed and its performance characteristics determined by [employer]. It has not been cleared or approved by the Food and Drug Administration. Reference Range: Females 26 - 30y: 1.03 - 11.10 Median 4.20 AMH concentrations of >= 1.06 ng/mL is correlated with a better response to ovarian stimulation, produced more retrievable oocytes and higher odds of live according to Shiraer et al. Fertility and Sterility. 2010: 94:1313-0777. The current AMH test method correlates with [...] diagnose or exclude an AMH-secreting ovarian tumor. Cortisol-055628 Reviewed date:09/05/2024 08:57:43 PM Interpretation: Performing Lab:[facility], [facility] [place], Phone - [phone], Director - Hanh Notes/Report: Test(s) 209288-Uxhrcoehucaopv; 842809-Lidlynvpkxu; 310461-Uoltodyy was developed and its performance characteristics determined by [facility]. It has not been cleared or approved by the Food and Drug Administration. Cortisol 7.8 6.2-19.4 ug/dL Please Note: The reference interval and flagging for this test is for an AM collection. If this is a PM collection please use: Cortisol PM: 2.3-11.9 LP+Non-HDL Cholesterol-87506 5 Reviewed date:06/08/2024 01:02:13 PM Interpretation: Performing Lab:[facility], [address] [facility], Phone - [phone], Director - Davey Notes/Report: Cholesterol, Total 156 100-199 mg/dL Triglycerides 48 0-149 mg/dL HDL Cholesterol 58 >39 mg/dL VLDL Cholesterol Amando 10 5-40 mg/dL LDL Chol Calc (NIH) 88 0-99 mg/dL Non-HDL Cholesterol 98 0-129 mg/dL Comp. Metabolic Panel (14)-3 07895 Reviewed date:06/08/2024 01:02:12 PM Interpretation: Performing Lab:[facility], [address] [facility] [place], Phone - [phone], Director - Davey Notes/Report: Glucose 87 70-99 [...] 0-40 IU/L ALT (SGPT) 23 0-32 IU/L HCV Antibody RFX to Quant PC R-[id number] Reviewed date:06/08/2024 01:02:12 PM Interpretation: Performing Lab:[facility], [address] [place] [address], Phone - [phone], Director - Jordandry Notes/Report: HCV Ab Non Reactive Non Reactive Interpretation: Not infected with HCV unless early or acute infection is suspected (which may be delayed in an immunocompromised individual), or other evidence exists to indicate HCV infection. Albumin/Creatinine Ratio,Uri ne-[id number] Reviewed date:06/08/2024 01:02:12 PM Interpretation: Performing Lab:[facility], [address] [place] [address], Phone - [phone], Director - Davey Notes/Report: Creatinine, Urine 247.5 Not Estab. mg/dL Albumin, Urine 35.9 Not Estab. ug/mL Alb/Creat Ratio 15 0-29 mg/g creat Normal: 0 - 29 Moderately increased: 30 - 300 Severely increased: >300 Vitamin D, 98-Enpngjb-677184 Reviewed date:06/08/2024 01:02:12 PM Interpretation: Performing Lab:[facility], [address] [place] [address], Phone - [phone], Director - Davey Notes/Report: Vitamin D, 25-Hydroxy 37.5 30.0-100.0 ng/mL Vitamin D deficiency has been defined by the [place] of Medicine and an Endocrine Society practice guideline as a level of serum 25-OH vitamin D less than 20 ng/mL (1,2). The Endocrine Society went on to further define vitamin D insufficiency as a level between 21 and 29 ng/mL (2). 1. IOM ([place] of Medicine). 2010. Dietary reference intakes for calcium and D. [place]: The National Academies Press. 2. Abraham MF, Malu NC, Windy SIDDIQUI, et al. Evaluation, treatment, and prevention of vitamin D deficiency: an Endocrine Society clinical practice guideline. JCEM. 2010; 96(4):1911-30. CBC With Differential/Platel et-265497 Reviewed date:06/08/2024 01:02:12 PM Interpretation: Performing Lab:[facility] [place], [address] [place] [address], Phone - [phone], Director - Davey Notes/Report: WBC 4.9 3.4-10.8 [...] % Immature Grans (Abs) 0.0 0.0-0.1 x10E3/uL Ferritin-159432 Reviewed date:06/08/2024 01:02:12 PM Interpretation: Performing Lab:[facility] [place], [address] [facility] [place], Phone - [phone], Director - Davey Notes/Report: Ferritin 36 15-150 ng/mL Urinalysis, Complete-[id number] Reviewed date:06/08/2024 01:02:12 PM Interpretation: Performing Lab:[facility] [place], [address] [facility] [place], Phone - [phone], Director - Davey Notes/Report: Specific [place] 1.023 1.005-1.030 pH 6.5 5.0-7.5 Urine-Color Yellow [...] None seen /lpf Bacteria Many None seen/Few Magnesium-639003 Reviewed date:06/08/2024 01:02:12 PM Interpretation: Performing Lab:[facility] [place], [address] [place] [address], Phone - [phone], Director - [facility] Notes/Report: Magnesium 1.8 1.6-2.3 mg/dL Iron and TIBC-284024 Reviewed date:06/08/2024 01:02:12 PM Interpretation: Performing Lab:[facility] [place], [address] [place] [address], Phone - [phone], Director - [facility] Notes/Report: Iron Bind.Cap.(TIBC) 346 250-450 ug/dL UIBC 219 131-425 ug/dL Iron 127 27-159 ug/dL Iron Saturation 37 15-55 % CT Abdomen & Pelvis Reviewed date:01/14/2025 09:01:46 AM Interpretation: Performing Lab: Notes/Report: Original Report PROCEDURE: CT ABDOMEN and PELVIS with CONTRAST INDICATION: Intermittent abdominal pain x10-15 years. IBS. Family history of malignant neoplasm of digestive organs. Additional History: Appendectomy. TECHNIQUE: CT of the abdomen and pelvis was performed with intravenous contrast. Omnipaque-350 100 mL was administered intravenously. Oral contrast was also administered as a component of this study; the patient received approximately 30 mL of Gastrografin mixed with Breeza by mouth. Automated mA/kV exposure control was utilized and patient examination was performed in strict accordance with principles of ALARA. RADIATION AMOUNT: 506 mGy-cm. COMPARISON: None available. FINDINGS: Abdomen: The lung bases are clear. The liver is normal. The pancreas, spleen, adrenal glands, and kidneys demonstrate no acute pathology. Gallbladder is present without gallstones. There is no free air or lymph node enlargement. Abdominal aorta is not aneurysmal. Pelvis: There is no bowel wall thickening or obstruction. Mild to moderate stool volume. Bilateral adnexal cysts or follicles measuring up to 2.7 cm on the right. There is no free fluid. Lymph nodes are not enlarged. Urinary bladder is unremarkable. Skeleton: There are no acute fractures. No suspicious bony lesions. IMPRESSION: 1.No acute process. 2.Mild to moderate stool volume. 3.Bilateral adnexal cysts or follicles measuring up to 2.7 cm on the right. Daniel Pagan MD Signed by Daniel Pagan MD Read by: DANIEL PAGAN MD Reviewed and Electronically Signed by: DANIEL PAGAN MD Lipase-[id number] Reviewed date:12/18/2024 08:37:13 PM Interpretation: Performing Lab:[facility], [address] [place] [address], Phone - [phone], Director - MDJodry Notes/Report: Lipase 22 14-72 U/L Amylase-[id number] Reviewed date:12/18/2024 08:37:13 PM Interpretation: Performing Lab:[facility] Higgins, [address] [place] [address], Phone - [phone], Director - MDJodry Notes/Report: Amylase 60 31-110 U/L Comp. Metabolic Panel (14)-3 09165 Reviewed date:12/18/2024 08:37:14 PM Interpretation: Performing Lab:[facility] Higgins [address] [place] [address], Phone - [phone], Director - MDJodry Notes/Report: Glucose 96 70-99 mg/dL BUN 7 [...] 0-40 IU/L ALT (SGPT) 9 0-32 IU/L CBC With Differential/Platel et-648851 Reviewed date:12/18/2024 08:37:14 PM Interpretation: Performing Lab:[facility] [place], [address] [facility], Phone - [phone], Director - Davey Notes/Report: WBC 7.4 3.4-10.8 x10E3/uL RBC 4.33 [...] % Immature Grans (Abs) 0.0 0.0-0.1 x10E3/uL Urinalysis, Complete-701818 Reviewed date:12/18/2024 08:37:13 PM Interpretation: Performing Lab:[facility] [place], [address] [facility] [place], Phone - [phone], Director - Davey Notes/Report: Specific [place] 1.011 1.005-1.030 pH 6.5 5.0-7.5 Urine-Color Yellow [...] None seen /lpf Bacteria Few None seen/Few MR Cervical Reviewed date:08/21/2024 11:19:35 AM Interpretation: [...] and Electronically Signed by: Romulo Moy M.D. MR Brain Reviewed date:08/21/2024 11:19:35 AM Interpretation: [...] and Electronically Signed by: VANGIE KELLY MD TSH reflex to [id number] Reviewed date:09/05/2024 08:57:43 PM Interpretation: Performing Lab:[facility], Phone - [phone], Director - [facility] Notes/Report: Test(s) 222326-Xmzqiqcqbevhsk; 385103-Uvenghqmxsv; 320146-Brpdrsqo was developed and its performance characteristics determined by [facility]. It has not been cleared or approved by the Food and Drug Administration. TSH 1.080 0.450-4.500 uIU/mL Catecholamines, Plasma-45205 2 Reviewed date:09/05/2024 08:57:43 PM Interpretation: Performing Lab:[facility], Phone - [phone], Director - Hanh Notes/Report: Test(s) 561948-Irjaweofvksgcm; 131414-Dcrgkikpoty; 936711-Kucwplqx was developed and its performance characteristics determined by [facility]. It has not been cleared or approved by the Food and Drug Administration. Norepinephrine 246 115-524 pg/mL Epinephrine 42.1 0.0-55.4 pg/mL Dopamine <10.0 0.0-36.7 pg/mL Catecholamines, Plasma reference intervals based on patient in supine position for at least 20 minutes. Thyroglobulin Antibody-33162 5 Reviewed date:09/05/2024 08:57:43 PM Interpretation: Performing Lab:[facility], Phone - [phone], Director - [facility] Notes/Report: Test(s) 936730-Zetyvgjemmdesr; 485103-Olxwjeactcm; 283757-Fmwegpwi was developed and its performance characteristics determined by [facility]. It has not been cleared or approved by the Food and Drug Administration. Thyroglobulin Antibody 2.1 0.0-0.9 IU/mL Thyroglobulin Antibody measured by [employer] . It should be noted that the presence of thyroglobulin antibodies may not be pathogenic nor diagnostic, especially at very low levels. The assay net technical architect has found that four percent of individuals without evidence of thyroid disease or autoimmunity will have positive TgAb levels up to 4 IU/mL. Thyroid Peroxidase (TPO) Ab- 679934 Reviewed date:09/05/2024 08:57:43 PM Interpretation: Performing Lab:[facility] [place], [address] [place] [address], Phone - [phone], Director - [facility] Notes/Report: Test(s) 325433-Zgfqvgsmcqbyoi; 017271-Xjpuwlgoggj; 745025-Khqsvynm was developed and its performance characteristics determined by [facility]. It has not been cleared or approved by the Food and Drug Administration. Thyroid Peroxidase (TPO) Ab <9 0-34 IU/mL Reason For Referral Reason lordosis of cervical spine and neck pain Faxed Diagnosis 1 Cervicalgia (M54.2) Referral Organization Nicolás WEBER Referring Provider First Name Silvia Referring Provider Last Name Ernie Referring Provider Speciality Nurse Prac dannieionenisreen Referred Provider Sanjana Balderas Referred Provider Specialty Pain Medicin e General Notes Shania BARRETO 02:28:06 PM > faxed, Su BARRETO 11/14/2024 01:40:46 PM >requested notes, Su BARRETO 11/16/2024 09:14:44 AM >Booked 12/31/2024 Referral Priority Routine Reason Can we please refer patient to Genetics given father's history of being positive BRCA2 gene with metastatic pancreatic cancer Faxed Diagnosis 1 Family history of ma lignant neoplasm of digestive organs (Z80.0) Referral Organization Nicolás WEBER Referring Provider First Name Silvia Referring Provider Last Name Ernie Referring Provider Speciality Nurse Arabella maciel Referred Provider Specialty Oncology General Notes Shania BARRETO 03:20:41 PM > waiting for results MARY LOU Perez Giselle 01/01/2025 03:32:01 PM >per patient, referral needs to be faxed to [facility] fax# [phone], Shania BARRETO 01/01/2025 05:22:09 PM > faxed, Shania BARRETO 01/03/2025 11:41:36 AM > Called to follow up [phone] was given a different fax number [phone] usually takes 3-5 days they will contact the patient, Shania BARRETO 01/07/2025 04:15:29 PM > Called left a message to make sure they have received referral, Shania BARRETO 01/08/2025 09:13:49 AM > Bita called back from [facility] patient is scheduled for Referral Priority Routine Referral Appointment Date 03/11/2025 Reason Referral to neuro-op hthalmologist within [facility], Dr. Ashley Lyman Diagnosis 1 Chronic migraine wit hout aura, intractable, without status migrainosus (G43.719) Referral Organization Nicolás WEBER Referring Provider First Name Silvia Referring Provider Last Name Ernie Referring Provider Speciality Nurse Arabella maciel Referred Provider Specialty Ophthalmolog y, Otology, Laryngology, Rhinology General Notes Su BARRETO 01/06 03:21:21 PM >faxed Referral Priority Routine Medications Medication SIG (Take, Route, Frequency, Duration) Notes Start Date End Date Status buPROPion HCl ER (XL) 150 MG TAKE 1 TABL ET BY MOUTH DAILY EVERY MORNING Orally Once a day; Duration: 30 days Active Magnesium Active Propranolol HCl 20 MG Take [...] BY MOUTH EVERY DAY; Duration: 90 Active LORazepam 0.5 MG 1 tablet as needed daily for anxiety/panic Orally Once a day; Duration: 14 days 01/13/2025 Active Ondansetron 4 MG 1 tablet on the tong ue and allow to dissolve Orally Once a day; Duration: 14 days 04/24/2022 Active Cromolyn Sodium 100 MG/5ML Oral; Duratio n: 72 Days Active Vyvanse 40 MG 1 capsule in the morning Orally Once a day; Duration: 30 days 02/18/2025 Active Emgality 120 MG/ML as directed Subcutaneous once a month; Duration: 30 days Active Dexmethylphenidate HCl 10 MG 1 tablet Or al Once a Day; Duration: 30 days 02/18/2025 03/22/2025 Active Naltrexone HCl 50 MG 4.5 mg Orally Once a day Active Antihistamine Active Probiotic Active Vitamin D Active Immunizations Vaccine Route Administration Date Status Comme nts *Influenza-Flublok IM Intramuscular 12/26/2024 Administere d *Td Unknown 05/04/2023 Refused Influenza-Afluria (IIV4) Unknown [...] Status W/U Status Risk Notes Problem Rickettsiosis (277348819) Rickettsiosis, unspecified (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) Active confirmed Problem 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) Active confirmed Problem Vitamin D deficiency (36669649) Vitamin D deficiency, unspecified (E55.9) Active confirmed Problem Mild recurrent major depression (92311735) Major depressive disorder, recurrent, mild (F33.0) Active confirmed Problem Generalized anxiety disorder (48226299) Generalized anxiety disorder (F41.1) Active confirmed Problem Attention deficit hyperactivity disorder, combined type (80825119) Attention-deficit hyperactivity disorder, combined type (F90.2) Active confirmed Problem Chronic intractable migraine without aura (338930556155785) Chronic migraine without aura, intractable, without status migrainosus (G43.719) Active confirmed Problem Essential hypertension (17266893) Essential (primary) hypertension (I10) Active confirmed Problem Hypermobility syndrome (79178588) Hypermobility syndrome (M35.7) Active confirmed Problem Lordosis finding (finding) (071018010) Lordosis, unspecified, site unspecified (M40.50) Active confirmed Problem Cervical spine instability (finding) (082048797) Spinal instabilities, cervical region (M53.2X2) Active confirmed Problem Cervicalgia (99481561) Cervicalgia (M54.2) Active confirmed Problem Intermenstrual bleeding - irregular (18840311) Excessive and frequent menstruation with irregular cycle (N92.1) Active confirmed Problem High antibody titer (421478175) Raised antibody titer (R76.0) Active confirmed Problem Mast cell activation syndrome (disorder) (4242304252992290 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 Problem Premenstrual dysphoric disorder (531599) Premenstrual dysphoric disorder (F32.81) Active confirmed Problem Postural orthostatic tachycardia syndrome (disorder) (392532273) Postural orthostatic tachycardia syndrome [POTS] (G90.A) Active confirmed Problem Refractory migraine with aura (disorder) (920745951) Chronic migraine with aura, intractable, without status migrainosus (G43.E19) Active confirmed Problem Marfan's syndrome (80636134) Marfan syndrome with other cardiovascular manifestations (Q87.418) Active confirmed Vital Signs Heart Rate 83 /min 12/26/2024 Temperature 96.7 degrees Fahrenheit 12/26/2024 Oximetry 97 % 12/26/2024 Blood pressure diastolic 68 mm Hg 08/27/2024 Height 67.5 in 12/26/2024 Blood pressure systolic 118 mm Hg 08/27/2024 Weight 146 lbs 12/26/2024 BMI 22.53 kg/m2 12/26/2024 Encounters Encounter Location Date Provider Diagnosis Nicolás Miner MD [address] [id number] 05/07/2024 Silvia Ernie Encounter for genera l adult medical examination [...] neoplasm of cervix Z12.4 Nicolás Miner MD [address] [id number] 05/24/2024 Silvia Klein Excessive and freque nt menstruation with irregular cycle N92.1 ; Chronic migraine without aura, intractable, without status migrainosus G43.719 ; Postural orthostatic tachycardia syndrome [POTS] G90.A ; Hypermobility syndrome M35.7 and Essential (primary) hypertension I10 Nicolás WEBER [address] [place] [address] [id number] 07/03/2024 Silvia Klein Chronic migraine wit h aura, intractable, without status migrainosus G43.E19 ; Spinal instabilities, cervical region M53.2X2 ; Other fatigue R53.83 ; Hypermobility syndrome M35.7 ; Essential (primary) hypertension I10 and Chloasma L81.1 Arminder Miner MD [address] [id number] 08/27/2024 Silvia Klein Cervicalgia M54.2 ; Lordosis, unspecified, site unspecified M40.50 ; Spinal instabilities, cervical region M53.2X2 ; Chronic migraine with aura, intractable, without status migrainosus G43.E19 ; Other fatigue R53.83 ; Chloasma L81.1 ; Major depressive disorder, recurrent, mild F33.0 and Attention-deficit hyperactivity disorder, combined type F90.2 Nicolás Miner MD [address] [id number] 12/12/2024 Silvia Klein Family history of malignant neoplasm of digestive organs Z80.0 ; Right upper quadrant pain R10.11 and Disappearance and of family member Z63.4 Nicolás Miner MD [address] [id number] 12/26/2024 Silvia Klein Family history of malignant neoplasm of digestive organs Z80.0 ; Right upper quadrant pain R10.11 ; Cervicalgia M54.2 ; Spinal instabilities, cervical region M53.2X2 ; Chronic migraine with aura, intractable, without status migrainosus G43.E19 ; Major depressive disorder, recurrent, mild F33.0 ; Chloasma L81.1 and Encounter for immunization Z23 Nicolás Miner MD [address] [id number] 03/28/2024 Silvia Miner MD [address] [id number] 04/04/2024 Silvia Miner MD [address] [id number] 05/07/2024 Silvia Miner MD [address] [id number] 06/08/2024 Silvia Klein Other fatigue R53.83 Nicolás Miner MD [address] [id number] 07/04/2024 Silvia Miner MD [address] [id number] 08/14/2024 Silvia Miner MD [address] [id number] 09/05/2024 Silvia Klein Other adrenocortical insufficiency E27.49 [facility] [address] [place] [address] [id number] 09/18/2024 Silvia Ernie [facility] [address] [place] [address] [id number] 09/19/2024 Silvia Ernie [facility] [address] [place] [address] [id number] 11/20/2024 Silvia Ernie Miner MD [address] [id number] 12/18/2024 Silvia Klein Nicolás Miner MD [address] [id number] 12/26/2024 Silvia Kleinalem Miner MD [address] [id number] 01/01/2025 Silvia Klein Genetic susceptibili ty to malignant neoplasm of breast Z15.01 [facility] [address] [place] [address] [id number] 01/14/2025 Silvia Klein Nicolás Miner MD [address] [id number] 02/21/2025 Silvia Klein [facility] [address] [place] [address] [id number] 02/20/2025 Silvia Klein Attention-deficit hyperactivity disorder, combined type F90.2 Nicolás Mnier MD [address] [id number] 03/02/2024 Nicolás Miner Attention-deficit hyperactivity disorder, combined type F90.2 Nicolás Miner MD [address] [id number] 03/27/2024 Silvia Klein Attention-deficit hyperactivity disorder, combined type F90.2 [facility] [address] [place] [address] [id number] 03/29/2024 Silvia Ernie [facility] [address] [place] [place] [address] [id number] 04/19/2024 Silvia Klein Attention-deficit hyperactivity disorder, combined type F90.2 [facility] [address] [place] [address] [id number] 05/07/2024 Silviamaureen Miner MD [facility] [address] [place] [address] [id number] 05/27/2024 Silvia Klein Attention-deficit hyperactivity disorder, combined type F90.2 Nicolás Miner MD [address] [id number] 06/25/2024 Arminder Miner Attention-deficit hyperactivity disorder, combined type F90.2 Nicolás Miner MD [address] [id number] 07/23/2024 Silvia Klein Nicolás Miner MD [address] [id number] 07/31/2024 Silvia Klein Attention-deficit hyperactivity disorder, combined type F90.2 Nicolás Miner MD [address] [id number] 07/31/2024 Silvia Klein Nicolás Miner MD [address] [id number] 09/17/2024 Silvia Klein Attention-deficit hyperactivity disorder, combined type F90.2 Nicolás Miner MD [address] [id number] 09/20/2024 Silvia Klein Nicolás Miner MD [address] [id number] 10/25/2024 Arminder Kristofer Attention-deficit hyperactivity disorder, combined type F90.2 Nicolás Miner MD [address] [id number] 10/25/2024 Silvia Ernie Miner MD [address] [id number] 11/15/2024 Silvia Klein Generalized anxiety disorder F41.1 Nicolás Miner MD [address] [id number] 11/22/2024 Silvia Klein Nicolás Miner MD [address] [id number] 11/26/2024 Silvia Klein Attention-deficit hyperactivity disorder, combined type F90.2 and Generalized anxiety disorder F41.1 Nicolás Miner MD [address] [id number] 12/05/2024 Silvia Ernie Miner MD [address] [id number] 12/07/2024 Silvia Klein Nicolás Miner MD [address] [id number] 12/23/2024 Silvia Klein Attention-deficit hyperactivity disorder, combined type F90.2 Arminder Miner MD [address] [id number] 01/04/2025 Silvia Alatorree Nicolás Miner MD [address] [id number] 01/04/2025 Silvia Klein Nicolás Miner MD [address] [id number] 01/09/2025 Silvia Klein Family history of malignant neoplasm of digestive organs Z80.0 and 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2 Nicolás Miner MD [address] [id number] 01/27/2025 Silvia Klein Major depressive disorder, recurrent, mild F33.0 Nicolás Miner MD [address] [id number] 01/28/2025 Silvia Klien Attention-deficit hyperactivity disorder, combined type F90.2 Nicolás Miner MD [address] [id number] 02/16/2025 Silvia Klein Attention-deficit hyperactivity disorder, combined type F90.2 Assessments Encounter Date Diagnosis (ICD Code) Assessment Notes Treatment Notes Treatment Clinical Notes Section Notes 03/02/2024 Attention-deficit hyperactivity disorder, combined type (ICD-10 - F90.2) 03/27/2024 Attention-deficit hyperactivity disorder, combined type (ICD-10 - F90.2) 04/19/2024 Attention-deficit hyperactivity disorder, combined type (ICD-10 - F90.2) 05/07/2024 Encounter for general adult medical examination without abnormal findings (ICD-10 - Z00.00) General healthcare up-to-date. Will obtain updated routine labs.Plan will be for annual in 1 year 05/07/2024 Chronic migraine without aura, intractable, without status migrainosus (ICD-10 - G43.719) Patient to continue tracking her migraines and to remain on her medications as prescribed by her functional medicine provider as well as her neurologist, talent acquisition administrator, and 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 Patient has seen improvement [...] days as well as her blood pressure 05/27/2024 Attention-deficit hyperactivity disorder, combined type (ICD-10 - F90.2) 06/08/2024 Other fatigue (ICD-10 - R53.83) 06/25/2024 Attention-deficit hyperactivity disorder, combined type (ICD-10 - F90.2) 07/03/2024 Chronic migraine with aura, intractable, without [...] 1 month to further manage patient's headaches/migraines 07/03/2024 Spinal instabilities, cervical region (ICD-10 - [...] move forward with imaging at this time. 07/31/2024 Attention-deficit hyperactivity disorder, combined type (ICD-10 [...] discuss injection/treatment options for her continued pain 08/27/2024 Lordosis, unspecified, site unspecified (ICD-10 - M40.50) See plan above 05/24/2024 Excessive and frequent menstruation with irregular [...] of spironolactone. 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 Patient's father earlier this week and she is processing the loss of her father while ensuring she does not also have the BRCA2 gene. Patient states she was seen by [facility], which we did refer to patient, but we have never received notes. Patient states that she did ask [facility] to complete BRCA2 gene testing as a 23 and many suggested she had a false positive BRCA2 finding. Encouraged patient to provide our office with all notes to review given this potential diagnosis and gene finding years before she became a patient here. 12/26/2024 Right upper quadrant pain (ICD-10 - R10.11) Patient was recently notified that her CT scan of her abdomen was denied. Reviewed with patient her father is diagnosis of positive BRCA2 gene and metastatic pancreatic cancer. Would like patient to obtain this CT scan and discussed with patient that our office will work on identifying the underlying cause for patient's denial 12/12/2024 Family history of malignant neoplasm of [...] gene. Patient states she was seen by [facility], which we did refer to patient, but we have never received notes. Patient states that she did ask [facility] to complete BRCA2 gene testing as a 23 and many suggested she had a false positive BRCA2 finding. Encouraged patient to provide our office with all notes to review given this potential diagnosis and gene finding years before she became a patient here. 12/12/2024 Right upper quadrant pain (ICD-10 - [...] further genetic testing and referral placed to [facility]. Will also obtain lab work today. Patient is scheduled to be seen in December and we will reassess symptoms and review all results if available during that appointment 01/09/2025 Family history of malignant neoplasm of digestive organs (ICD-10 - Z80.0) Patient was noted to have positive BRCA 2 gene and her Tyrer-Cuzick score was noted to be 66.5%. 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) 01/10/2025 Nausea (ICD-10 - R11.0) 01/28/2025 Attention-deficit hyperactivity disorder, combined type (ICD-10 - F90.2) 02/16/2025 Attention-deficit hyperactivity disorder, combined type (ICD-10 - F90.2) 02/20/2025 Attention-deficit hyperactivity disorder, combined type (ICD-10 - F90.2) 01/10/2025 Disappearance and of family member (ICD-10 - Z63.4) 01/27/2025 Attention-deficit hyperactivity disorder, combined type (ICD-10 - F90.2) 12/12/2024 Disappearance and of family member (ICD-10 - Z63.4) Patient is working through the loss of her father and will refill patient's Ativan to assist with upcoming services at the end of the week. 12/26/2024 Cervicalgia (ICD-10 - M54.2) Reviewed with pt her cervical MR which did reveal straightening of cervical spine, which could be an underlying factor for her cervical next pain. Patient is working with physical therapy as well as receiving Botox for migraines and she is finding this helpful in managing her neck pain. 11/26/2024 Generalized anxiety disorder (ICD-10 - F41.1) 05/24/2024 Chronic migraine without aura, intractable, without status migrainosus (ICD-10 - G43.719) Patient with longstanding history of chronic migraines. Patient to continue tracking her migraines and remain on her current medication regimen as she feels as though this combination has helped improve her headache and migraine severity and frequency but has not resolved her symptoms. 08/27/2024 Spinal instabilities, cervical region (ICD-10 - [...] functional medicine and obtaining this lab work 05/07/2024 Attention-deficit hyperactivity disorder, combined type (ICD-10 [...] readings despite taking these treatments for ADHD 05/07/2024 Postural orthostatic tachycardia syndrome [POTS] (ICD-10 [...] is not a common presentation for auras 05/24/2024 Postural orthostatic tachycardia syndrome [POTS] (ICD-10 - G90.A) Patient is pending a n apt with Dr. Raza in September for further evaluation for underlying POTS given increased heart rate episodes and palpitations 12/26/2024 Spinal instabilities, cervical region (ICD-10 - M53.2X2) Discussed again with patient her persistent headaches/migraine symptoms that I do suspect are due to cervical instability and cervicogenic headache. She is working with physical therapy and does find this helpful in managing her headache symptoms 12/26/2024 Chronic migraine with aura, intractable, without status migrainosus (ICD-10 - G43.E19) Reviewed with kalyani marshall her headache/migraine days, although patient states they [...] severity are worsening despite her current treatments 05/24/2024 Hypermobility syndrome (ICD-10 - M35.7) Patient is followed by [facility] for concerns of H-EDS with mass cell and potential POTS (pending a tilt table test). Discussed that her headaches could be stemming from cervical instability due to H-EDS. Encouraged pt to continue with EDS based PT at home to help strengthen the muscles in her shoulders/back to help manage any potential worsening headache symptoms stemming for her neck. 08/27/2024 Other fatigue (ICD-10 - R53.83) Patient [...] (ICD-10 - M35.7) Patient is followed by [facility] for concerns of [...] (ICD-10 - M35.7) Patient is followed by [facility] for concerns of H-EDS with mass cell and potential POTS. Discussed that her headaches could be stemming from cervical instability due to H-EDS. Encouraged pt to begin continue with EDS based PT at home to help strengthen the muscles in her shoulders/back to help manage any potential worsening headache symptoms stemming for her neck. 07/03/2024 Essential (primary) hypertension (ICD-10 - I10) Reviewed with kalyani marshall her blood pressure which was normal during today's visit. Patient to continue taking her blood pressure occasionally at home to ensure continued normal blood pressure readings 08/27/2024 Chloasma (ICD-10 - L81.1) Patient continues [...] treatments and discussed with dermatology as well 05/24/2024 Essential (primary) hypertension (ICD-10 - I10) [...] levels than what patient was getting at [facility]. 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 She remains on fluoxetine with good relief of symptoms 12/26/2024 Chloasma (ICD-10 - L81.1) Patient is [...] to further manage her major depressive symptoms 07/03/2024 Chloasma (ICD-10 - L81.1) Patient continues to take spironolactone for underlying melasma treatment. Discussed with patient her concerns of using spironolactone long-term and plan will be for patient to decrease to 50 mg. If skin changes do not occur with lowering this dose, could consider stopping this treatment all together at next follow up. Patient is followed by [facility] and states that she will discuss this with dermatology as well 12/26/2024 Encounter for immunization (ICD-10 - Z23) Patient agreeable to receive her flu shot in office today 05/07/2024 Essential (primary) hypertension (ICD-10 - I10) [...] blood pressure readings at next follow-up appointment 08/27/2024 Attention-deficit hyperactivity disorder, combined type (ICD-10 [...] he r Pap smear in 2021 through [facility] TELEPHONE INTERVIEW[facility]. Patient is aware she is due for an updated pap smear this year to ensure she remains up to date with cervical cancer screenings. Patient also aware that if she is not able to secure an appointment with her gynecology office to follow-up with our office and schedule gynecology evaluation to complete her Pap smear to ensure she is up-to-date with Pap smears 05/07/2024 Other 12/26/2024 Other See plan above Plan Of Treatment Pending Test Test Name Order Date Ultrasound : Breast, right 05/12/2022 CORTISOL 30 MIN POST 09/05/2024 CORTISOL 60 MIN POST 09/05/2024 HOLTER MONITOR, 7 DAYS, APPLICATION 07/07 HOLTER MONITOR, 7 DAYS, INTERPRETATION 0 09/07/2023 Cortisol-[id number] 06/08/2024 Cortisol, ACTH Stimulation-[id number] 2024 Next Appt Details Provider Name:Silvia Klein , 03/26/2025 09:00:00 AM, [address] [place] [address], [phone], Provider Name:Silvia Klein , 05/16/2025 09:00:00 AM, [address] [place] [address], [phone], Insurance Providers Payer Name Payer Address Payer Phone Subscriber Number Group Number Insured Name Patient Relationship to Insured Coverage Start Date Coverage End Date [facility] BL[facility] C[facility] [address] [place] [address] [id number] Elvira Braun Self - patient is the insured Medical (General) History Medical History History ICD Code ADHD Migraines (since childhood) Elevated TPO antibody Genetic testing through [employer] - revealed potential BRCA 2 gene Surgical History Surgery Date(Month/Year) Appendix 2013 Hospitalization History Reason Date(Month/Year) Appendix 2013
--- OUTSIDE RECORDS SUMMARY | 2025-02-22 08:04 | XMS_ITS | Encounter Summary ---
Author Organization [facility] Address [address] [place] [id number] Care Team Providers Care Retail Marketing Coordinator Name Role Phone Unavailable Primary Care Provider Unavailabl e Encounter Details Date Type Department Care Team (Late st Contact Info) Description 07/25/2023 Scanned Document [facility] [address] [facility] [address] [place], [place] [id number] Yemi Gray MD [address] [place] [address] Social History Tobacco Use Types Packs/Day [...]
--- OUTSIDE RECORDS SUMMARY | 2025-02-22 08:04 | XMS_ITS | Clinical Summary ---
Author Organization [facility] [email or web address] [facility] Address [address] [facility] [place] [address] Phone Care Team Providers Care Certified Optician Name Role Phone Nicolás Miner MD Primary Care Provider [phone] Allergies Active Allergy Reactions Criticality Noted Date [...] 12 lead Tilt table; Future Palpitations 09/03/2024 Medical History Medical History Date Comments Adhd [...] on file Sexual Orientation Not on file Last Filed Vital Signs Vital Sign Reading [...] Care Team (Late st Contact Info) Description 03/13/2025 1:30 PM EST Office Visit [facility] [address] [facility] [address] [place] [address] Clark Raza MD [address] [place] [address] [address] [place] [address] 04/02/2025 1:00 PM EST Appointment [facility] Xray [address] [place] [address] Health Maintenance Due Date Last Done Comments Drug Screen 1996 Non-Opioid Controlled Substance Agreement 1996 Hepatitis A Vaccines (2 of 2 - 2-dose series) 09/22/2011 03/24/2011 Hepatitis B Vaccines (1 of 3 - 19+ 3-dose series) 2015 Cervical Cancer Screening: Pap Smear 2017 HIV Screening 02/06/2022 Hepatitis C Screening 02/06/2022 Social Influencers of Health Screening 02/06/2022 HPV Vaccines (1 - 3-dose SCDM series) 2023 Depression Screening 03/07/2024 COVID-19 Vaccine ( - 2024- season) 2024 04/10/2021, 07/16/2020, 06/18/2020 Influenza Vaccine (#1) 2024 , 12/20/2020, 01/06/2020, Additional history exists DTaP,Tdap,and Td Vaccines (2 - Td or Tdap) 12/01/2026 12/01/2016 RSV Immunization Adult Patients (1 - 1-dose 75+ series) 2071 Meningococcal ACWY Vaccine Completed 08/14/2014 HIB Vaccines [...] patient's age to complete this topic Insurance [facility] Care Teams Certified Optician Relationship Specialty Start Date End Date Nicolás Miner MD [address] [place] [id number] PCP - General Internal Medicine 09/05/24
--- OUTSIDE RECORDS SUMMARY | 2025-02-22 08:04 | XMS_ITS | Clinical Summary ---
Author Organization [facility] Address [address] [place] [address] Care Team Providers Care [employer] Worker Name Role Phone Silvia Klein MD Primary Care Provider [phone] Allergies Active Allergy Reactions Criticality Noted Date Comments Penicillins Hives Medium 10/25/2024 Medications No known medications Active Problems No known active problems Encounters Date Type Department Care Team Description 02/12/2025 11:30 AM EST Treatment [address] [phone] System, Provider Not In [place], [place], PT Cervicalgia (Primary Dx); Chronic intractable headache, unspecified headache type; Benign joint hypermobility 02/04/2025 8:00 AM EST Evaluation [address] [phone] System, Provider Not In [place], [place], PT Cervicalgia (Primary Dx); Chronic intractable headache, unspecified headache type 01/29/2025 5:00 PM EST Treatment [address] [phone] System, Provider Not In [place], [place], PT Cervicalgia (Primary Dx); Chronic intractable headache, unspecified headache type; Benign joint hypermobility 01/22/2025 5:00 PM EST Treatment [address] [phone] System, Provider Not In [place], [place], PT Cervicalgia (Primary Dx); Chronic intractable headache, unspecified headache type; Benign joint hypermobility 01/15/2025 5:00 PM EST Treatment [facility] [address] [place] [address] System, Provider Not In [place] Shi, PT Cervicalgia (Primary Dx); Chronic intractable headache, unspecified headache type; Benign joint hypermobility 12/25/2024 5:00 PM EDT Treatment [facility] [address] [place] [address] System, Provider Not In [place] Shi, PT Cervicalgia (Primary Dx); Chronic intractable headache, unspecified headache type; Benign joint hypermobility 12/04/2024 5:00 PM EDT Treatment [address] [place] [address] System, Provider Not In [place] Shi, PT Cervicalgia (Primary Dx); Chronic intractable headache, unspecified headache type; Benign joint hypermobility from Last 3 Months Social History Tobacco Use Types Packs/Day Years Used Date Smoking Tobacco: Never Assessed Comments Unknown Sex and Gender Information Value Date Recorded Sex Assigned at Not on file Legal Sex Female 3:10 PM EST Gender Identity Not on file Sexual Orientation Not on file Plan of Treatment Upcoming Encounters Date Type Department Care Team (Late st Contact Info) Description 02/26/2025 5:00 PM EST Treatment [address] [place] [address] System, Provider Not In [place] Shi, PT [address] [facility] [place] [address] 03/12/2025 5:00 PM EST Treatment [address] [place] [address] System, Provider Not In [place] Shi, PT [address] [facility] [place] [address] 03/19/2025 5:00 PM EST Treatment [address] [place] [address] System, Provider Not In [place] Shi, PT [address] [facility] [place] [address] 03/26/2025 5:00 PM EST Treatment [facility] [address] [place] [address] System, Provider Not In [place] Shi, PT [address] [facility] [place] [address] 04/02/2025 5:00 PM EST Treatment [address] [place] [address] System, Provider Not In [place] Shi, PT [address] [facility] [place] [address] 04/09/2025 5:00 PM EST Treatment [address] [place] [address] System, Provider Not In [place] Shi, PT [address] [facility] [place] [address] 04/16/2025 4:30 PM EST Treatment [address] [place] [address] System, Provider Not In [place] Shi, PT [address] [facility] [place] [address] 04/23/2025 4:30 PM EST Treatment [address] [place] [address] System, Provider Not In [place] Shi, PT [address] [facility] [place] [address] 04/30/2025 4:30 PM EST Treatment [address] [place] [address] System, Provider Not In [place] Shi, PT [address] [facility] [place] [address] Health Maintenance Due Date Last Done Comments Hepatitis C Virus Screening 1996 HIV Screening 2009 DTaP/Tdap/Td Vaccines (1 - Tdap) 2015 Hepatitis B Vaccines (1 of 3 - 19+ 3-dose series) 2015 Pap Smear (Ages 21-65) 2017 COVID-19 Vaccine (1 - 2024-2 6 season) 2024 Influenza Vaccine Completed 12/26/2024, 01/16/2022 HPV Vaccines (No Doses Required) Completed Pneumococcal Vaccine: Pediatric (0-5 Years) and At-Risk Patients (6 to 49 Years) Aged Out No longer eligible b ased on patient's age to complete this topic Goals Goal Patient Goal Type Associated Problems Recent Progress Patient-Stated? Author PT LTG 1 Physical Therapy No [place] Shi, PT Note: PT goals Feb 2025: STG: Increase cervical AROM 100% all directions in 8 weeks Increase DNF endurance test to 30 sec in 8 weeks Improve MMT rhomboids, mid trap, low trap by 1/3 grade in 8 weeks LTG: Pt will demonstrate functional improvement on Neck Disability Index (NDI) as demonstrated by 10% decrease in score in 12 weeks Able to look up with neck pain < 3/10 in 12 weeks Able to look down with neck pain < 3/10 in 12 weeks Able to sit and work on computer x 60 min in 12 weeks Able to lift 30 lb floor to waist with proper body mechanics in 12 weeks *Pt has Kylie Bush 27/03/[address] [place] [address] [place] [address] [facility] PPO Care Teams [employer] Worker Relationship Specialty Start Date End Date Silvia Klein MD [address] [place] [id number] PCP - General General Medicine 03/12/24
--- OUTSIDE RECORDS SUMMARY | 2025-02-22 08:04 | XMS_ITS | Clinical Summary ---
Author Organization [facility] Address [facility] [place] [address] Care Team Providers Care Fixed Interest Dealer Name Role Phone Silvia Klein APRN Primary Care Provider [phone] Social History Tobacco Use Types Packs/Day Years [...] PAP Smear 2017 Covid-19 Vaccine ( - 2024-26 season) 2024 Influenza (Flu) vaccine (1 o f 1 - Influenza standard series) 11/05/2024 Insurance [employer] Care Teams Fixed Interest Dealer Relationship Specialty Start Date End Date Silvia Klein APRN [address] [place] [address] PCP - General Family Medicine 05/13/23
--- OUTSIDE RECORDS SUMMARY | 2025-02-22 08:04 | XMS_ITS | Clinical Summary ---
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 Name Role Phone Silvia Klein TIE IN HAND Primary Care Provider [phone] Encounters Date Type Department Care Team Description 01/03/2025 Orders Only [facility] [address], 10th [address], [address] [place] [address] Silvia Klein NP Encounter for nonprocreative genetic counseling (Primary Dx) 01/03/2025 Orders Only [facility] [address], [address], [address] [place] [address] Silvia Klein NP Genetic screening (Primary Dx) from Last 3 Months Social History Tobacco Use Types Packs/Day Years Used Date Smoking Tobacco: Never Assessed Education Answer Date Recorded Are you interested in more education? Not on kobe e 01/03/2025 Are you concerned about learning? Not on file 01/03/2025 No 01/03/2025 No 01/03/2025 Digital Access Answer Date Recorded No 01/03/2025 No 01/03/2025 Reliable internet access at home? Not on file 01/03/2025 Device with a working camera? Not on file Comments Unknown Sex and Gender Information Value Date Recorded Sex Assigned at Female 01/01/2025 2:15 PM EDT Legal Sex Female 2:10 PM EDT Gender Identity Female 01/01/2025 2:15 PM EDT Sexual Orientation Straight 01/01/2025 2: 15 PM EDT Plan of Treatment Upcoming Encounters Date Type Department Care Team (Late st Contact Info) Description 03/18/2025 11:00 AM EST Office Visit [facility] [address], [address], [address] [place] [address] Gregor Bitarenuka Fuentes [address] [facility] [address] [place] [address] [email or web address] Anders Guzman MD [address] [facility] [address] [place] [address] [email or web address] 03/20/2025 3:00 PM EST Office Visit [facility] [address] [facility] [facility] [address] [place] [address] Alexandria Montes, GRID MOLDER [address] [facility] [address] [place] [address] [email or web address] Health Maintenance Due Date Last Done Comments Adult Td,Tdap Booster 1996 DEPRESSION SCREENING 2008 SMOKING Hx and SMOKELESS TOB ACCO SCREENING 2009 HEPATITIS C SCREENING 2014 HIV ONE-TIME SCREENING (18-6 5 YEARS) 2014 PAP SMEAR 2017 INFLUENZA VACCINE (#1) 2024 COVID-19 VACCINE (2024-2 6 season) 2024 HEPATITIS A VACCINES Aged Out No long er eligible based on patient's age to complete this topic HIB VACCINES Aged Out No longer eligi ble based on patient's age to complete this topic MENINGOCOCCAL VACCINES (ACWY) Aged Out No longer eligible based on patient's age to complete this topic MENINGOCOCCAL VACCINES (B) Aged Out N o longer eligible based on patient's age to complete this topic PNEUMOCOCCAL VACCINES (0-49 years) Aged Out No longer eligible based on patient's age to complete this topic Medical Devices Not on file Insurance [place]UE [place] OUT OF STATE PPO BLUE [place] OUT OF STATE PPO BLUE [place] OUT OF STATE PPO BLUE [place]OSS OUT OF STATE PPO BLUE CROSS OUT OF [place] [address] [place] [address] CROSS OUT OF STATE PPO Care Teams Combined Rail Operator Relationship Specialty Start Date End Date Silvia Klein NP [address] [place] [address] [email or web address] PCP - General Nurse Practitioner 01/01/25 Additional Source Comments The information contained in this document represents components of the legal health record. It is not the complete legal health record.[facility]
--- OUTSIDE RECORDS SUMMARY | 2025-02-22 08:04 | XMS_ITS | Encounter Summary ---
Author Organization [facility] Address [address] [place] [phone] Care Team Providers Care Public Address Servicer Name Role Phone Unavailable Primary Care Provider Unavailabl e Encounter Details Date Type Department Care Team (Late st Contact Info) Description 12/15/2023 Scanned Document [facility] [address] [id number] Provider, historical . Social History Tobacco Use [...]
[2025-02-22 08:19] VITALS: BP 120/82; PULSE 67; O2SAT 99; BMI 23.0
--- NOTE | 2025-02-22 08:19 | A.OFFVIS_ITS ---
Vital Signs 02/22/25 08:19 Height 5 ft 7 in Weight 147 lb BMI 23.0 BP 120/82 Blood Pressure Location Lt brachial Position Sitting Pulse 67 Pulse Source Pulse Oximeter Pulse Oximetry (%) 99 Oxygen Delivery Method Room Air Intake Visit Reasons: 6 mnts f/u appt Intake Note: Patient presents 6 month follow up for migraines. migraines under control with medication/Botox Specimen Boss Required: No Accompanied by: Self / Same As Patient Allergies amoxicillin Allergy (Unknown, Verified 02/22/25 08:20) Unknown Penicillins Allergy (Unknown, Verified 02/22/25 08:20) Unknown sulfamethoxazole (From Bactrim) Allergy (Unknown, Verified 02/22/25 08:20) Hives trimethoprim (From Bactrim) Allergy (Unknown, Verified 02/22/25 08:20) Hives Medication List - Last Reconciled 02/22/25 by SOFIA Sandhu acetazolamide 125 mg PO TID PRN 30 days azelaic acid 15% topical bupropion HCl XL (Wellbutrin XL) 150 mg PO QAM cetirizine (Zyrtec) 10 mg PO DAILY PRN cholecalciferol (vitamin D3) 125 mcg PO DAILY clonidine HCl 0.2 mg PO DAILY cromolyn mg PO dexmethylphenidate 10 mg PO famotidine 40 mg PO BID PRN galcanezumab-gnlm (Emgality Pen) mg subcut lisdexamfetamine (Vyvanse) 40 mg PO QAM magnesium tabs PO DAILY naltrexone mg PO DAILY onabotulinumtoxinA (Botox) 200 units IM ONCE 12 weeks propranolol 20 mg PO BID riboflavin (vitamin B2) 400 mg (4 x 100 mg) PO DAILY 30 days spironolactone 100 mg PO QAM [spore basedv probiotic PO DAILY] tretinoin 0.05% 1 appl topical BEDTIME HPI Comments Details: 29-yr-old female presents for f/u visit of chronic migraine. Pt reports the following interval medical changes: Her father passed suddenly from cancer in Sep-from BRCA-2 positive pancreatic cancer. Her and her sister have both tested positive for BRCA 2, and they are scheduled to have high-risk cancer consult at [facility] in [place]. She notes that after her father was dx'd w/ cancer, she took time off of work. And even though she had increased personal stress, she noticed a significant decrease in her headache frequency. However, once she returned to work, the headache frequency increased again. 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 Before this recent leave of work, she thought that the ey strain was triggered by the migraine. Additionally she states that she has a h/o childhood onset strabismus which was not formally corrected. She can have diplopia- but it is difficult for her to describe. Experiences dry eye sensation during the migraine attack. In the interem, her PCP increased her propranolol to 20mg BID- which is helping headache and anxiety. Pt reports she feels the combination of Botox and Emgality continues to be helpful, as she no longer has a daily headache. , but the effect starts to wear off towards the end of the injection cycle. However, she no longer now has a constant headache. She can now identify the onset of a migraine better. She does state that barometric pressure changes and air travel are clear migraine triggers. She continues to use OTC analgesics, is prone to waiting to take these until the migraine is more severe. She still has not tried the sumatriptan, as she is worried about the risk for side effect, specifically the possible cardiac or paresthesia type symptoms. She is working w/ PT ([facility]) for hypermobility, neck tightness and discomfort. 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 Her PCP office had referred her for tilt-table testing, unclear if this was completed yet. Most recent normal echocardiogram as part of EDs work-up. Has history of chronic positive ZHEN. Previous work-up: 08/01/2024, brain MRI with and without contrast, was read as unremarkable. 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 Recent c-spine 08/01/2024, C-spine MRI without contrast: 1. Straightening of the usual cervical lordosis. 2. Minimal disc bulges at C2-C3, C3-C4 and C4-C5. 3. Small focal central disc protrusion of C5-C6 minimally narrows the spinal canal. PFSH Medical History IBS (irritable bowel syndrome) GERD (gastroesophageal reflux disease) Positive ZHEN (antinuclear antibody) ADHD (attention deficit hyperactivity disorder) Surgical History Hx of appendectomy Family History Father Hypertension Mother Hypertension Cornelius's thyroiditis Maternal Grandmother Migraines Social History Alcohol intake: current Alcohol intake frequency: a few times a month Patient Tobacco Use Status: Never used Tobacco Substance Use Type: Marijuana Physical Exam Vital Signs: Last Vital Signs Pulse 67 02/22/25 08:19 BP 120/82 02/22/25 08:19 Pulse Ox 99 02/22/25 08:19 Oxygen Delivery Method Room Air 02/22/25 08:19 BMI result Body Mass Index 23.0 Const General: cooperative and no acute distress Orientation/consciousness: patient oriented x3 Resp Effort & Inspection: normal respiratory effort and able to speak in complete sentences Neuro General: patient oriented x3 Cranial nerves: Yes CN's II-XII intact bilaterally Cognition (Neuro): normal cognition Psych Appearance: grossly normal Mental Status: mental status grossly normal Speech and movement: Normal speech and movement present Affect: normal affect Attitude: cooperative Assessment & Plan Assessment & Plan (1) Chronic migraine without aura: Code(s): G43.709 - Chronic migraine without aura, not intractable, without status migrainosus Category: Medical Qualifiers: Status migrainosus presence: without status migrainosus Intractability: intractable Qualified Code(s): G43.719 - Chronic migraine without aura, intractable, without status migrainosus (2) Cold hands and feet: Comment: Improved Code(s): R20.9 - Unspecified disturbances of skin sensation Category: Medical (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 Category: Medical (4) Orthostatic lightheadedness: Code(s): R42 - Dizziness and giddiness Category: Medical (5) Positive ZHEN (antinuclear antibody): Code(s): R76.8 - Other specified abnormal immunological findings in serum Category: Medical (6) Diplopia: Code(s): H53.2 - Diplopia Category: Medical (7) Strabismus: Code(s): H50.9 - Unspecified strabismus Category: Medical (8) BRCA2 gene mutation positive in female: Code(s): Z15.01 - Genetic susceptibility to malignant neoplasm of breast; Z15.02 - Genetic susceptibility to malignant neoplasm of ovary; Z15.05 - Genetic susceptibility to malignant neoplasm of fallopian tube(s); Z15.068 - Genetic susceptibility to other malignant neoplasm of digestive system; Z15.07 - Genetic susceptibility to malignant neoplasm of urinary tract Category: Medical Plan For coldness in bilateral hands and feet: Monitor clinically, as these have improved. ? For overall headache management: Discussed that given her positive BRCA 2 status, to notify us with if she develops any new or different headache symptoms. Continue to optimize good self-care, including but not limited to maintaining a healthy diet, adequate fluid intake, adequate sleep, and engaging in regular physical activity. Track headaches. Will request ophthalmology consult for strabismus/diplopia evaluation. Neuro-ophthalmology consult as ordered by PCP. For pots and hypermobile EDS: Tilt-table test per PCP Continue paced physical activity. Continue PT with hypermobility specialist ? For acute headache treatment: May use OTC Tylenol, Ibuprofen, or Naproxen prn. Discussed trying Sumatriptan 100mg tab- even if taking 1st dose later in the migraine attack, just to determine tolerance rather than efficacy. Propranolol 10mg IR daily as needed Start acetazolamide 125mg cap- 1 cap 2-3 x's per day for up to 2-3 days as needed barometric changes and/or airtravel Patient may benefit from trying a as needed neuromodulation device such as, an eTENs or RENs device. Previous acute migraine medication trials: None Acute migraine medication contraindications: None at this time Future consideration: gepant. ? For chronic migraine prevention medication: Continue Riboflavin 400mg daily in the morning Continue OTC Magnesium 400-500mg daily at bedtime Continue Propranolol 20mg IR twice a day Continue Emgality 120 mg subcu every month, as patient has had a significant reduction in her migraine burden w/ decrease intensity of migraine, decreased severity of associated migraine symptoms, now has a few headache-free days per month- since taking Emgality combined with Botox. Continue Botox inj every 12 weeks- as pt is having good clinical effect and helping cervical tightness and TMJ s/s as well. Previous migraine prevention medication trials: Nortriptyline not tolerated. Botox for lina TMJ- was helpful. Propranolol 60 mg ER- not tolerated- caused excessive sleepiness. Veraapiml ER 100mg qhs- not tolerated-caused fatigue Migraine prevention medication contraindications: Aimovig due to possibility of Raynaud's. ? ? Pt to follow-up for Botox as scheduled and in 4-6 months w/ APPLICATIONS ADMINISTRATOR or sooner prn. Orders: Referrals Ophthalmology Referral G43.719 - Chronic migraine without aura, intractable, without status migrainosus, H50.9 - Unspecified strabismus, H53.2 - Diplopia, Q79.62 - Hypermobile Izzy-Danlos syndrome, R76.8 - Other specified abnormal immunological findings in serum Medications: New acetazolamide 125 mg PO TID PRN 30 tabs 1RF pressure headache / air travel 30 days Coding Level of Care Code Est Pt Level 4 (79533) Diagnoses Intractable chronic migraine without aura and without status migrainosus G43.719 Status migrainosus presence: without status migrainosus Intractability: intractable Cold hands and feet R20.9 Hypermobile Izzy-Danlos syndrome Q79.62 Orthostatic lightheadedness R42 Positive ZHEN (antinuclear antibody) R76.8 Diplopia H53.2 Strabismus H50.9 BRCA2 gene mutation positive in female Z15.01; Z15.02; Z15.05; Z15.068; Z15.07
== END 2025-02-22 09:18 | disposition home or self-care (01) ==
LOC: HO.HSMS 08:01
PROVIDERS: PCP Nurse Practitioner Family; Visit Provider Nurse Practitioner Family
DX: G43.719 Chronic migraine without aura, intractable, without status migrainosus (principal); R20.9 Unspecified disturbances of skin sensation; Q79.62 Hypermobile Ehlers-Danlos syndrome; R42 Dizziness and giddiness; R76.89 Other specified abnormal immunological findings in serum; H53.2 Diplopia; H50.9 Unspecified strabismus; Z15.01 Genetic susceptibility to malignant neoplasm of breast; Z15.02 Genetic susceptibility to malignant neoplasm of ovary; Z15.05 Genetic susceptibility to malignant neoplasm of fallopian tube(s); Z15.068 Genetic susceptibility to other malignant neoplasm of digestive system; Z15.07 Genetic susceptibility to malignant neoplasm of urinary tract
CPT/HCPCS: 99214